=== PATIENT | male | born 1970 | race Two or more races ===

== ENCOUNTER 2020-10-08 16:20 | Outpatient (REF) | payer OTHER, SELFPAY | END 2020-10-08 16:21 | disposition home or self-care (01) | LOC: HO.LAB 16:20 | PROVIDERS: Visit Provider Internal Medicine | DX: Z20.822 Contact with and (suspected) exposure to COVID-19 (principal) | CPT/HCPCS: 36415; C9803; U0003 ==

== ENCOUNTER 2021-04-04 12:45 | Emergency (ER) | payer OTHER, SELFPAY ==
--- NOTE | ~2021-04-04 | CT_ITS ---
EXAMINATION: CT HEAD WITHOUT CONTRAST CLINICAL INFORMATION: Headache, dizziness COMPARISON: None TECHNIQUE: Contiguous axial imaging was performed from the skull base to vertex without intravenous administration of contrast. This CT examination was performed using dose optimization techniques as appropriate, variously including the following: *Automated exposure control *Adjustment of mA and/or kV according to patient size (this includes techniques or standardized protocols for targeted exams where dose is matched to indication/reason for exam; i.e. extremities or head) *Use of iterative reconstruction technique DLP: 843 mGy-cm FINDINGS: There is no evidence of acute intracranial hemorrhage or territorial infarction. No abnormal mass effect or midline shift is seen. Choi to white matter differentiation is well preserved. No extra-axial fluid collections are identified. Small retrocerebellar arachnoid cyst. The ventricles are normal in size. There is no abnormal attenuation within the brain parenchyma. The osseous structures and soft tissues are normal. The mastoid air cells and visualized portions of the paranasal sinuses are well aerated. CT/CT head/brain wo con IMPRESSION: No acute intracranial pathology.
[2021-04-04 13:18] VITALS: BP 108/73; PULSE 52; RESP 18; TEMP 36.4; O2SAT 98; BMI 33.6
[2021-04-04 13:49] LABS: MANUAL DIFF FLAG NO
[2021-04-04 13:53] LABS: Basophils Percent Auto 0.3 % (0-2); Eosinophils Absolute Auto 0.2 X10*3/uL (0.0-0.4); Eosinophils Percent Auto 2.2 % (0-4); Hematocrit 42.2 % (42-52); Hemoglobin 14.5 g/dl (14.0-18.0); Imm Gran Abs Auto 0.04 X10*3/uL (0.00-0.03); Imm Gran Pct Auto 0.4 % (0.0-0.4); Lymphocytes Absolute Auto 1.9 X10*3/uL (1.2-4.9); Lymphocytes Percent Auto 20.3 % (20-40); Mean Corpuscular HGB Conc 34.4 g/dl (31.0-36.0); Mean Corpuscular Hemoglobin 31.5 pg (27.0-33.0); Mean Corpuscular Volume 91.7 fL (80-98); Mean Platelet Volume 8.8 fL (9.4-12.4); Monocytes Absolute Auto 0.4 X10*3/uL (0.1-1.2); Monocytes Percent Auto 4.1 % (2-11); Neutrophils Absolute Auto 6.9 X10*3/uL (2.0-8.3); Neutrophils Percent Auto 72.7 % (45-73); Platelet Count 293 X10*3/uL (160-400); Red Cell Distribution Width 13.8 % (11.0-16.0); White Blood Count 9.5 X10*3/uL (4.8-10.8)
[2021-04-04 14:24] LABS: Anion Gap 11 (12-20); Blood Urea Nitrogen 16 mg/dL (9-16); Calcium 9.3 mg/dL (8.4-10.2); Carbon Dioxide 23 mmol/L (22-29); Chloride 109 mmol/L (96-108); Creatinine Clr Calc Pharmacy 144.1; Estimated Glomerular Filt Rate > 60; Glucose Random 97 mg/dL (60-115); Sodium 139 mmol/L (135-145)
--- NOTE | 2021-04-04 18:14 | ED.DIZZY ---
HPI - Dizziness General Chief Complaint: Dizziness Stated Complaint: dizziness Time Seen by Provider: 04/04/21 18:03 Source: patient Mode of arrival: ambulatory Limitations: no limitations History of Present Illness MD elicited complaint: dizziness and lightheadedness Pertinent past history: inner ear problems Onset (ago): day(s) (last night) Timing: sudden onset and intermittent Severity: severe Description: room spinning Context: change in body position Exacerbating factors: movement/ambulation and change in body position Relieving factors: remaining still Associated symptoms: other (recent L ear infection on cefdinir 300mg BID x 5 days from PCP ) Related Data Previous Rx's Medication Instructions Recorded levofloxacin 500 mg PO DAILY 9 Days #9 tab 04/04/21 meclizine 25 mg PO TID PRN #30 tab 04/04/21 ofloxacin 10 drp OTIC (EARS) DAILY 7 Days #5 04/04/21 ml ondansetron 4 mg PO Q8H PRN #20 tab 04/04/21 Allergies Allergy/AdvReac Type Severity Reaction Status Date / Time oxycodone [From PERCOCET] Allergy Intermediate DIZZINESS Verified 04/04/21 13:18 Review of Systems Review of Systems: Constitutional : No Weight loss, No Fever, No Chills, No Fatigue, No Malaise ENT/Mouth : No sore throat, No Rhinorrhea, pos ear pain Eyes: No Eye Pain, No Swelling, No Redness Cardiovascular : No Chest Pain, No SOB, No Dyspnea on Exertion, No Orthopnea, No Edema, No Palpitations Respiratory : No Cough, No Sputum, No Wheezing Gastrointestinal : pos Nausea, No Vomiting, No Diarrhea, No Constipation, No abdominal Pain, No Hematochezia, No Melena Genitourinary : No Dysuria, No Urinary Frequency, No Hematuria, Musculoskeletal : No joint pain, No Myalgias, No Joint Swelling Skin : No Skin Lesions, No rash Neuro : No Weakness, No Numbness, pos Dizziness, pos Headache Psych : No Anxiety/Panic, No Depression Heme/Lymph: No Bruising, No Bleeding,No Lymphadenopathy Endocrine : No Polyuria, No Polydipsia All other systems reviewed and are negative PMFSH Past Medical History Attestation statement: The following information was validated with the patient. Medical History No active medical problems Social History Social History (Updated 04/04/21 @ 18:18 by Nery Durant DO) Patient Tobacco Use Status: Never used Tobacco Use of substances other than those prescribed or required for medical reasons: No Advance Directives: No Advance Directives Information Provided: Yes Physical Exam Vital Signs: Vital Signs: Last Vital Signs Temp 97.5 F 04/04/21 13:18 Pulse 42 L 04/04/21 19:49 Resp 18 04/04/21 19:49 BP 116/71 04/04/21 19:49 Pulse Ox 98 04/04/21 19:49 Body Mass Index 33.6 Appearance: Alert. Oriented X3. No acute distress. Eyes: Pupils equal, round and reactive to light. ENT: Pharynx normal. R TM bulging and opacified L TM small anterior perforation with purulence noted - no mastoid ttp bilaterally Neck: Normal inspection. Neck supple. CVS: Normal heart rate and rhythm. Pulses normal. Respiratory: No respiratory distress. Breath sounds normal. Abdomen: Soft and nontender. Skin: Skin warm and dry. Normal skin color. Normal skin turgor. Extremities: No lower extremity edema. No calf ttp Neuro: Oriented X 3. No motor deficit. No sensory deficit. Course Course Course Narrative: feels better stable for DC wants to go home MDM - Dizziness MDM Narrative Medical decision making narrative: 51 yo male with recent L AOM on cefdinir 300mg BID for 5 days now for the last day c/o worsening ear pain, ringing in the ears, dizziness - on exam bilateral AOM but L ear has perforation in it no mastoid ttp, at this time will need drops and to switch antibiotics, supportive medications ordered, CT scan for mass/obstructive lesion suspect vertigo from worsening ear infection Lab Data Result diagrams: 04/04/21 13:45 04/04/21 13:45 Labs: Lab Results 04/04/21 04/04/21 Range/Units 13:45 13:45 WBC 9.5 (4.8-10.8) X10*3/uL RBC 4.60 (4.60-5.80) X10*6/uL Hgb 14.5 (14.0-18.0) g/dl Hct 42.2 (42-52) % MCV 91.7 (80-98) fL MCH 31.5 (27.0-33.0) pg MCHC 34.4 (31.0-36.0) g/dl RDW 13.8 (11.0-16.0) % Plt Count 293 (160-400) X10*3/uL MPV 8.8 L (9.4-12.4) fL Immature Gran % (Auto) 0.4 (0.0-0.4) % Neut % (Auto) 72.7 (45-73) % Lymph % (Auto) 20.3 (20-40) % Glascock % (Auto) 4.1 (2-11) % Eos % (Auto) 2.2 (0-4) % Baso % (Auto) 0.3 (0-2) % Lymph # (Auto) 1.9 (1.2-4.9) X10*3/uL Glascock # (Auto) 0.4 (0.1-1.2) X10*3/uL Eos # (Auto) 0.2 (0.0-0.4) X10*3/uL Baso # (Auto) 0.0 (0.0-0.2) X10*3/uL Abs Immat Gran (auto) 0.04 H (0.00-0.03) X10*3/uL Absolute Neuts (auto) 6.9 (2.0-8.3) X10*3/uL Absolute Nucleated RBC 0.000 (0.0-0.012) X10*3/uL Nucleated RBC % (auto) 0.0 (0.0-0.2) /100WBC Sodium 139 (135-145) mmol/L Potassium 4.0 (3.3-5.1) mmol/L Chloride 109 H (96-108) mmol/L Carbon Dioxide 23 (22-29) mmol/L Anion Gap 11 L (12-20) BUN 16 (9-16) mg/dL Creatinine 0.84 (0.5-1.4) mg/dL Estim Creat Clear Calc 144.1 Estimated GFR > 60 Random Glucose 97 (60-115) mg/dL Calcium 9.3 (8.4-10.2) mg/dL Discharge Plan Discharge Clinical Impression: Benign paroxysmal positional vertigo Qualifiers: Laterality: unspecified laterality Qualified Code(s): H81.10 - Benign paroxysmal vertigo, unspecified ear Otitis media Qualifiers: Otitis media type: suppurative Chronicity: acute Laterality: bilateral Recurrence: recurrent Spontaneous tympanic membrane rupture: with spontaneous rupture Qualified Code(s): H66.016 - Acute suppurative otitis media with spontaneous rupture of ear drum, recurrent, bilateral Patient Disposition: Home, Self-Care Instructions: Vertigo (ED), Ear Infection (ED) Additional Instructions: return to ED for any worsening symptoms or concerns stop cedfinir no water in your ears in the next 7 days recheck in 5 days for healing Prescriptions: New meclizine 25 mg tablet 25 mg PO TID PRN (Reason: dizziness) Qty: 30 RF: 0 ondansetron 4 mg tablet,disintegrating 4 mg PO Q8H PRN (Reason: nausea and vomiting) Qty: 20 RF: 0 levofloxacin 500 mg tablet 500 mg PO DAILY 9 Days Qty: 9 RF: 0 ofloxacin 0.3 % drops 10 drp otic (ears) DAILY 7 Days Qty: 5 RF: 0
[2021-04-04] MEDS: Meclizine HCl 25 MG TABLET PO (18:17)
[2021-04-04] MEDS: levoFLOXacin 500 MG TABLET PO (18:17)
[2021-04-04] MEDS: ondansetron HCL 4 MG/2 ML VIAL IVPUSH (18:18)
[2021-04-04] MEDS: 0.9 % Sodium Chloride 1,000 ML 999 ML IVCONT (18:19)
[2021-04-04 18:21] VITALS: BP 137/80; PULSE 50; RESP 16; O2SAT 100
[2021-04-04 19:49] VITALS: BP 116/71; PULSE 42; RESP 18; O2SAT 98
== END 2021-04-04 20:21 | disposition home or self-care (01) ==
LOC: HO.ED 18:23
PROVIDERS: Emergency Provider Emergency Medicine; PCP Internal Medicine
DX: H81.10 Benign paroxysmal vertigo, unspecified ear (principal); H66.016 Acute suppurative otitis media with spontaneous rupture of ear drum, recurrent, bilateral
CPT/HCPCS: 36415; 70450; 80048; 85025; 96361; 96374; 99284; J2405

== ENCOUNTER 2021-06-19 10:32 | Outpatient (REF) | payer OTHER, SELFPAY | END 2021-06-19 10:33 | disposition home or self-care (01) | LOC: HO.LAB 10:32 | PROVIDERS: PCP Internal Medicine Endocrinology, Diabetes & Metabolism; Visit Provider Internal Medicine | DX: Z20.822 Contact with and (suspected) exposure to COVID-19 (principal) | CPT/HCPCS: C9803; U0003; U0005 ==

== ENCOUNTER 2021-06-24 15:34 | Outpatient (REF) | payer OTHER, SELFPAY | END 2021-06-24 15:35 | disposition home or self-care (01) | LOC: HO.LAB 15:34 | PROVIDERS: Visit Provider Internal Medicine | DX: Z20.822 Contact with and (suspected) exposure to COVID-19 (principal) | CPT/HCPCS: C9803; U0003; U0005 ==

== ENCOUNTER 2022-04-15 09:41 | Emergency (ER) | payer OTHER, SELFPAY ==
[2022-04-15 11:05] VITALS: BP 136/84; PULSE 79; RESP 18; TEMP 36.2; O2SAT 100; BMI 34.2
[2022-04-15 13:46] VITALS: BP 137/86; PULSE 74; RESP 18; O2SAT 100
--- NOTE | 2022-04-15 13:56 | ED_ITS ---
HPI - Back Pain/Injury General Chief Complaint: Back Pain/Injury Stated Complaint: Back pain/HBP Time Seen by Provider: 04/15/22 12:54 Source: patient Mode of arrival: ambulatory History of Present Illness HPI Narrative: 52-year-old male with past medical history of COVID-19, chronic back pain, presenting to the ED complaining of lower back spasms x6 days. Reports bilateral low back pain radiating down bilateral lower extremities with intermittent numbness. Reports pain with movement and ambulation. Has been taking Flexeril at home without relief. Denies direct trauma, injury, fall, weakness, urinary incontinence/retention, hematuria. Admits to similar symptoms in the past. MD elicited complaint: back pain Onset (ago): day(s) Related Data Previous Rx's Medication Instructions Recorded levofloxacin 500 mg tablet 500 mg PO DAILY 9 days #9 tabs 04/04/21 meclizine 25 mg tablet 25 mg PO TID PRN dizziness #30 tabs 04/04/21 ofloxacin 0.3 % ear drops 10 drp otic (ears) DAILY 7 days #5 04/04/21 mL ondansetron 4 mg disintegrating 4 mg PO Q8H PRN nausea and 04/04/21 tablet vomiting #20 tabs acetaminophen 500 mg tablet 500 mg PO Q6H PRN fever or pain 04/15/22 (Tylenol Extra Strength) #14 tabs cyclobenzaprine 10 mg tablet 10 mg PO TID PRN muscle spasm #14 04/15/22 tabs lidocaine 5 % topical patch 1 patch topical DAILY PRN pain #30 04/15/22 (Lidoderm) ea naproxen 500 mg tablet 500 mg PO BID PRN pain 10 days #20 04/15/22 tabs tramadol 50 mg tablet 50 mg PO Q8H PRN pain, severe #9 04/15/22 tabs Allergies Allergy/AdvReac Type Severity Reaction Status Date / Time oxycodone [From PERCOCET] Allergy Intermediate DIZZINESS Verified 04/15/22 11:05 Review of Systems Review of Systems: Constitutional: No Fever, No Chills ENT/Mouth: No Ear Pain, No Nasal Congestion, No sore throat, No Rhinorrhea, No Swallowing Difficulty Cardiovascular: No Chest Pain, No SOB Respiratory: No Cough, No Sputum Gastrointestinal: No Nausea, No Vomiting, No Diarrhea, No Constipation, No Abdominal pain Genitourinary: No Dysuria, No Urinary Frequency, No Hematuria, No Urinary Incontinence/retention Musculoskeletal: + joint pain, No Myalgias, No Joint Swelling Skin: No Skin Lesions, No rash Neuro: No Weakness, No Numbness, No Paresthesias Yes all other systems are reviewed and are negative Neurologic: Denies Sensory deficit (Neuro) [facility] Past Medical History Attestation statement: The following information was validated with the patient. Medical History No active medical problems Social History Social History Patient Tobacco Use Status: Never used Tobacco Advance Directives: No Advance Directives Information Provided: Yes Physical Exam Vital Signs: Vital Signs: Last Vital Signs Temp 97.2 F 04/15/22 11:05 Pulse 74 04/15/22 13:46 Resp 18 04/15/22 13:46 BP 137/86 04/15/22 13:46 Pulse Ox 100 04/15/22 13:46 O2 Del Method 04/15/22 13:46 BMI result Body Mass Index 34.2 Const: General: cooperative, healthy appearing and no acute distress Orientation/consciousness: patient oriented x3 Limitations: no limitations HEENT: Head: Yes normal to inspection and Yes atraumatic Ears: hearing grossly normal bilaterally General nose exam: Normal external nose present Face and sinus: Yes normal facial exam Eyes: General: appearance normal, both eyes and all related structures EOM: EOMs intact bilaterally Neck: Neck: Yes normal visual inspection and Yes no meningeal signs Resp: Effort & Inspection: normal respiratory effort and no respiratory distress Auscultation: clear to auscultation bilaterally Cardio: Rate: regular rate Heart sounds: S1 normal heart sound present and S2 normal heart sound present GI: Inspection: Yes normal to inspection Palpation (GI): Soft to palpation, nontender, no guarding and not rigid : General: Yes no CVA tenderness Back/Spine/Pelvis: Other: No midline thoracic/lumbar spinous tenderness/step-off or deformity. + bilateral lower lumbar MSK tenderness to palpation/palpable muscle spasming Back: no CVA tenderness Skin: Rashes: no rashes Wounds: no wounds Neuro: Other: Strength intact throughout. No saddle anesthesia. Sensation intact to light touch. Neurovascular intact distally. Ambulating with slow steady gait General: patient oriented x3, tone normal, moves all extremities and no meningeal signs Gait exam (Neuro): Normal gait present Motor exam (neuro): 5/5 motor strength present throughout Sensory Exam: No Sensory deficit (Neuro) Extrem: General: Yes normal to inspection MDM - Back Pain/Injury MDM Narrative Medical decision making narrative: 52-year-old male with past medical history of COVID-19, chronic back pain, presenting to the ED complaining of lower back spasms x6 days. On exam vital signs stable, NAD, nontoxic appearing, no midline spinous tenderness throughout, no red flag symptoms. Ambulating with slow steady gait. Concern for MSK pain/spasming vs sciatica. Lower suspicion for pyelo/renal stone or cauda equina Plan: Pain control, PCP f/u Differential Diagnosis Differential diagnosis: Likely lumbar radiculopathy, sciatica and strain of lumbar region Medical Records Attestation: I reviewed the patient's medical records. Lab Data Attestation: I reviewed the patient's lab results. Discharge Plan Discharge Clinical Impression: Strain of lumbar region, Lumbar radiculopathy Patient Disposition: Home, Self-Care Instructions: Lumbar Radiculopathy (ED) Additional Instructions: Your pain is likely musculoskeletal Flexeril is a muscle relaxer, take at night as it makes you drowsy, do not drive, drink alcohol, or operate machinery while taking it Naproxen as an anti-inflammatory / pain medication, take with food Lidoderm patches are numbing patches, apply to painful area Tramadol is an opiate pain medication, take only when pain is severe for the next [address], drink alcohol, or operate machinery while taking If symptoms persist or worsen, pain becomes unbearable, you developed urinary retention or incontinence, or weakness return to the ED Prescriptions: New tramadol 50 mg tablet 50 mg PO Q8H PRN (Reason: pain, severe) Qty: 9 0RF acetaminophen [Tylenol Extra Strength] 500 mg tablet 500 mg PO Q6H PRN (Reason: fever or pain) Qty: 14 0RF lidocaine [Lidoderm] 5 % adhesive patch,medicated 1 patch topical DAILY MDD remove after 12 hours PRN (Reason: pain) Qty: 30 0RF Rx Instructions: leave on most painful area for up to 12 hrs naproxen 500 mg tablet 500 mg PO BID PRN (Reason: pain) 10 Days Qty: 20 0RF cyclobenzaprine 10 mg tablet 10 mg PO TID PRN (Reason: muscle spasm) Qty: 14 0RF No Action meclizine 25 mg tablet 25 mg PO TID PRN (Reason: dizziness) Qty: 30 0RF ondansetron 4 mg tablet,disintegrating 4 mg PO Q8H PRN (Reason: nausea and vomiting) Qty: 20 0RF levofloxacin 500 mg tablet 500 mg PO DAILY 9 Days Qty: 9 0RF ofloxacin 0.3 % drops 10 drp otic (ears) DAILY 7 Days Qty: 5 0RF Rx Instructions: L ear Referrals: Kris Garcia MD [Primary Care Provider] - Stand Alone Forms: Work/School Release
[2022-04-15] MEDS: Ketorolac Tromethamine 30 MG/ML VIAL IM (14:15)
[2022-04-15] MEDS: Lidocaine 4 % Patch ADH..PATCH 1 PATCH TRANSDERMA (14:16)
[2022-04-15] MEDS: traMADoL HCL 50 MG TABLET PO (14:17)
[2022-04-15] MEDS: Cyclobenzaprine HCl 10 MG TABLET PO (14:17)
== END 2022-04-15 14:32 | disposition home or self-care (01) ==
PROVIDERS: Emergency Provider Emergency Medicine Emergency Medical Services; PCP Internal Medicine Endocrinology, Diabetes & Metabolism
DX: M54.16 Radiculopathy, lumbar region (principal); S39.012A Strain of muscle, fascia and tendon of lower back, initial encounter; X58.XXXA Exposure to other specified factors, initial encounter; Y93.9 Activity, unspecified; Y92.9 Unspecified place or not applicable; Y99.9 Unspecified external cause status
CPT/HCPCS: 96372; 99283; 99284; J1885

== ENCOUNTER 2022-12-03 15:43 | Emergency (ER) | payer OTHER, SELFPAY ==
[2022-12-03 16:50] VITALS: BP 132/99; PULSE 77; RESP 20; TEMP 36.6; O2SAT 98; BMI 34.0
--- NOTE | 2022-12-03 17:01 | ED_ITS ---
HPI - General Adult General Chief complaint: Back Pain/Injury Stated complaint: Back pain Time Seen by Provider: 12/03/22 17:00 Source: patient Mode of arrival: wheelchair Limitations: no limitations History of Present Illness HPI narrative: Patient is a 52 year old assigned male at with a history of back pain presenting to the emergency department today with a new flare of his back pain. Patient states that he has chronic issues with his back and every now and then has an episode like this one. Patient denies any dizziness, lightheadedness, abdominal pain, nausea, vomiting, fever, chills, blurry vision, double vision, loss of vision, chest pain, difficulty breathing, shortness of breath, night sweats, pain with urination, increased urinary frequency, increased urinary urgency, blood in his urine or stool, syncope or a near syncopal episode, recent trauma or falls, bowel incontinence, bladder incontinence, bowel retention, bladder retention, or any other complaints at this time. Onset (ago): day(s) (2) Location: back Severity: mild Severity scale (1-10): 3 Pain Consistency: constant Relieving factors: none Exacerbating factors: none Associated symptoms: denies other symptoms Treatments prior to arrival: none Related Data Previous Rx's Medication Instructions Recorded levofloxacin 500 mg tablet 500 mg PO DAILY 9 days #9 tabs 04/04/21 meclizine 25 mg tablet 25 mg PO TID PRN dizziness #30 tabs 04/04/21 ofloxacin 0.3 % ear drops 10 drp otic (ears) DAILY 7 days #5 04/04/21 mL ondansetron 4 mg disintegrating 4 mg PO Q8H PRN nausea and 04/04/21 tablet vomiting #20 tabs acetaminophen 500 mg tablet 500 mg PO Q6H PRN fever or pain 04/15/22 (Tylenol Extra Strength) #14 tabs cyclobenzaprine 10 mg tablet 10 mg PO TID PRN muscle spasm #14 04/15/22 tabs lidocaine 5 % topical patch 1 patch topical DAILY PRN pain #30 04/15/22 (Lidoderm) ea naproxen 500 mg tablet 500 mg PO BID PRN pain 10 days #20 04/15/22 tabs tramadol 50 mg tablet 50 mg PO Q8H PRN pain, severe #9 04/15/22 tabs prednisone 20 mg tablet 20 mg PO DAILY 7 days #7 tabs 12/03/22 tramadol 50 mg tablet 50 mg PO Q8H PRN pain #7 tabs 12/03/22 Allergies Allergy/AdvReac Type Severity Reaction Status Date / Time oxycodone [From PERCOCET] Allergy Intermediate DIZZINESS Verified 04/15/22 11:05 Review of Systems Constitutional: Constitutional: Reports no additional constitutional co mplaints, Denies chills, Denies fever(s) and Denies night sweats Eyes: Eyes: Reports no additional eye complaints, Denies blurry vision, Denies change in vision, Denies diplopia, Denies eye discharge, Denies loss of vision and Denies eye pain ENT: Denies dizziness Cardiovascular: Cardiovascular: Reports no additional cardiovascular complaints, Denies chest pain, Denies lightheadedness, Denies Loss of Consciousness and Denies dyspnea Respiratory: Respiratory: Reports no additional respiratory complaints and Denies dyspnea Gastrointestinal: Gastrointestinal: Reports no additional gastrointestinal complaints, Denies abdominal pain, Denies melena, Denies hematochezia, Denies change in bowel habits and Denies change in stool character Genitourinary: Genitourinary: Reports no additional male genitourinary complaints, Denies hematuria, Denies oliguria, Denies difficulty urinating, Denies dysuria, Denies urinary frequency, Denies urinary hesitancy, Denies urinary incontinence and Denies urinary urgency Musculoskeletal: Musculoskeletal: Reports no additional musculoskeletal complaints, Reports back pain, Denies numbness and Denies tingling Neurologic: Denies dizziness, Denies loss of vision, Denies numbness and Denies tingling Psychiatric: Psychiatric: Reports no additional psychiatric complaints Endocrine: Endocrine: Reports no additional endocrine complaints Hematologic/Lymphatic: Hematologic/Lymphatic: Reports no additional hematologic/lymphatic complaints Allergic/Immunologic: Allergic/Immunologic: Reports no additional allergic/immunologic complaints PMFSH Past Medical History Attestation statement: The following information was validated with the patient. Source: old records reviewed and nursing notes reviewed Medical History No active medical problems Social History Social History Patient Tobacco Use Status: Never used Tobacco Advance Directives: No Advance Directives Information Provided: No Physical Exam ED Vital Signs: Vital Signs - 24 hr 12/03/22 16:50 Temperature 98 F Pulse Rate 77 Respiratory Rate 20 Blood Pressure 132/99 H Pulse Oximetry 98 Oxygen Delivery Method Room Air BMI result Body Mass Index 34.0 Const General: cooperative, no acute distress, alert and awake Nutritional Appearance: well nourished Orientation/consciousness: patient oriented x3 Limitations: no limitations HENMT Head: Yes normal to inspection and Yes atraumatic Ears: hearing grossly normal bilaterally and external ears normal General nose exam: Normal external nose present, no nasal discharge noted and no epistaxis Face and sinus: Yes normal facial exam, No abrasion and No laceration Mouth: Normal oral and palatal mucosa present, no drooling and no muffled voice Eyes General: appearance normal, both eyes and all related structures Periorbital: periorbital findings normal Eyelids: Yes eyelids normal Conjunctivae: conjunctivae normal Pupils: Equal, round and reactive pupils present EOM: EOMs intact bilaterally Neck Neck: Yes normal visual inspection, Yes full ROM and Yes no lymphadenopathy Chest Chest palpation & inspection: normal inspection of the chest Resp Effort & Inspection: normal respiratory effort and able to speak in complete sentences Auscultation: clear to auscultation bilaterally Cardio Rate: regular rate Rhythm: regular rhythm GI Inspection: Yes normal to inspection Palpation (GI): Soft to palpation, not firm, nontender, no guarding and not rigid General: Yes no CVA tenderness Back/Spine/Pelvis Back: no CVA tenderness Cervical Spine: normal cervical lordosis and cervical ROM normal Thoracic/Lumbar Spine: thoracic and lumbar spine normal to inspection and t horaco-lumbar ROM normal Neuro General: patient oriented x3 and moves all extremities Cranial nerves: Yes Equal, round and reactive pupils present Cognition (Neuro): normal cognition Motor exam (neuro): 5/5 motor strength present throughout Sensory Exam: Normal double simultaneous stimulation for sensation Coordination: [id number] test normal Extrem General: Yes normal to inspection, Yes full ROM and Yes capillary refill normal Psych Appearance: grossly normal Mental Status: mental status grossly normal Affect: normal affect Attitude: cooperative Thought process: Normal thought process present Thought content: Normal thought content present Insight: Good insight present (Psych) Medical Decision Making Medical Decision Making MDM Narrative: Patient is a 52 year old assigned male at with a history of back pain presenting to the emergency department today with low back pain. Patient's physical exam was unremarkable. I explained my physical exam findings to the patient. I answered all questions asked by the patient. Patient received IM Solu-medrol and IM Toradol which he stated helped his pain significantly. I stressed the importance of the patient taking his medication as prescribed. I stressed the importance of the patient following up with his primary care provider and a embroidery specialist. I stressed the importance of the patient returning to the emergency department immediately if his symptoms were to worsen or if he were to develop any dizziness, shortness of breath, difficulty breathing, chest pain, blurry vision, loss of vision, nausea, vomiting, abdominal pain, fever, chills, back pain, or any other complaints. Patient verbalized agreement and understanding with this treatment plan and discharge. Differential Diagnosis Differential Diagnoses: The differential diagnosis associated with the presentat ion includes low back pain Discharge Plan Discharge Clinical Impression: Lumbar back pain Patient Disposition: Home, Self-Care Instructions: Back Pain (ED) Additional Instructions: Follow up with your primary care provider and a embroidery specialist. Return to the emergency department immediately if your symptoms worsen or if you develop any dizziness, shortness of breath, difficulty breathing, chest pain, blurry vision, loss of vision, nausea, vomiting, abdominal pain, fever, chills, back pain, or any other complaints. Prescriptions: New prednisone 20 mg tablet 20 mg PO DAILY 7 Days Qty: 7 0RF tramadol 50 mg tablet 50 mg PO Q8H PRN (Reason: pain) Qty: 7 0RF No Action meclizine 25 mg tablet 25 mg PO TID PRN (Reason: dizziness) Qty: 30 0RF ondansetron 4 mg tablet,disintegrating 4 mg PO Q8H PRN (Reason: nausea and vomiting) Qty: 20 0RF levofloxacin 500 mg tablet 500 mg PO DAILY 9 Days Qty: 9 0RF ofloxacin 0.3 % drops 10 drp otic (ears) DAILY 7 Days Qty: 5 0RF Rx Instructions: L ear tramadol 50 mg tablet 50 mg PO Q8H PRN (Reason: pain, severe) Qty: 9 0RF acetaminophen [Tylenol Extra Strength] 500 mg tablet 500 mg PO Q6H PRN (Reason: fever or pain) Qty: 14 0RF lidocaine [Lidoderm] 5 % adhesive patch,medicated 1 patch topical DAILY MDD remove after 12 hours PRN (Reason: pain) Qty: 30 0RF Rx Instructions: leave on most painful area for up to 12 hrs naproxen 500 mg tablet 500 mg PO BID PRN (Reason: pain) 10 Days Qty: 20 0RF cyclobenzaprine 10 mg tablet 10 mg PO TID PRN (Reason: muscle spasm) Qty: 14 0RF Referrals: [facility] [place] Family Medicine [Provider Group] (Call to establish and follow up with a primary care provider. If you already have a primary care provider, please follow up with them.) [facility] [place] Primary Care, [facility] [Provider Group] (Call to establish and follow up with a primary care provider. If you already have a primary care provider, please follow up with them.) [facility] [place] Primary Care[facility] [Provider Group] (Call to establish and follow up with a primary care provider. If you already have a primary care provider, please follow up with them.) [facility] [Provider Group] (Call to establish and follow up with a embroidery specialist. ) Stand Alone Forms: Work/School Release Print Language: Sinhala
[2022-12-03] MEDS: methylPREDNISolone Sod Succ 125 MG/2 ML VIAL 60 MG IM (17:34)
[2022-12-03] MEDS: Ketorolac Tromethamine 15 MG/ML VIAL IM (17:34)
== END 2022-12-03 17:58 | disposition home or self-care (01) ==
PROVIDERS: Emergency Provider Internal Medicine; PCP Internal Medicine Endocrinology, Diabetes & Metabolism
DX: M54.50 Low back pain, unspecified (principal); Z79.899 Other long term (current) drug therapy
CPT/HCPCS: 96372; 99283; 99284; J1885; J2930

== ENCOUNTER 2023-06-05 14:15 | Emergency (ER) | payer OTHER, SELFPAY ==
[2023-06-05 14:19] VITALS: BP 145/86; PULSE 94; RESP 18; TEMP 36.7; O2SAT 98; BMI 34.8
--- NOTE | 2023-06-05 14:23 | ED.GENADULT ---
HPI - General Adult General Chief complaint: General Medical Stated complaint: L Ear Pain Time Seen by Provider: 06/05/23 18:20 Source: patient, family () and RN notes reviewed Limitations: no limitations History of Present Illness HPI narrative: 53-year-old male presents for evaluation of left ear pain. Patient reports he started to notice the pain 3 days ago He denies sticking anything in the ear Denies any drainage from the ear Denies any fevers or chills He reports a history of similar pain approximately 2 years ago which eventually led to vertigo due to an ear infection He denies any vertigo symptoms today Currently his pain is an 04/23 Related Data Previous Rx's Medication Instructions Recorded levofloxacin 500 mg tablet 500 mg PO DAILY 9 days #9 tabs 04/04/21 meclizine 25 mg tablet 25 mg PO TID PRN dizziness #30 tabs 04/04/21 ofloxacin 0.3 % ear drops 10 drp otic (ears) DAILY 7 days #5 04/04/21 mL ondansetron 4 mg disintegrating 4 mg PO Q8H PRN nausea and 04/04/21 tablet vomiting #20 tabs acetaminophen 500 mg tablet 500 mg PO Q6H PRN fever or pain 04/15/22 (Tylenol Extra Strength) #14 tabs cyclobenzaprine 10 mg tablet 10 mg PO TID PRN muscle spasm #14 04/15/22 tabs lidocaine 5 % topical patch 1 patch topical DAILY PRN pain #30 04/15/22 (Lidoderm) ea naproxen 500 mg tablet 500 mg PO BID PRN pain 10 days #20 04/15/22 tabs tramadol 50 mg tablet 50 mg PO Q8H PRN pain, severe #9 04/15/22 tabs prednisone 20 mg tablet 20 mg PO DAILY 7 days #7 tabs 12/03/22 tramadol 50 mg tablet 50 mg PO Q8H PRN pain #7 tabs 12/03/22 ofloxacin 0.3 % ear drops 10 drp otic (ear) left DAILY 7 06/05/23 days #5 mL Allergies Allergy/AdvReac Type Severity Reaction Status Date / Time oxycodone [From PERCOCET] Allergy Intermediate DIZZINESS Verified 04/15/22 11:05 Review of Systems Constitutional: Constitutional: Denies chills and Denies fever(s) Eyes: Eyes: Denies blurry vision ENT: Denies ear discharge and Reports otalgia Cardiovascular: Cardiovascular: Denies chest pain and Denies dyspnea Respiratory: Respiratory: Denies dyspnea Gastrointestinal: Gastrointestinal: Denies abdominal pain, Denies nausea and Denies vomiting Musculoskeletal: Musculoskeletal: Denies back pain Integumentary/Breasts: Skin/Breast: Denies erythema PMFSH Past Medical History Medical History No active medical problems Social History Social History Patient Tobacco Use Status: Never used Tobacco Physical Exam ED Vital Signs: Vital Signs - 24 hr 06/05/23 14:19 Temperature 98.1 F Pulse Rate 94 Respiratory Rate 18 Blood Pressure 145/86 H Pulse Oximetry 98 Oxygen Delivery Method Room Air BMI result Body Mass Index 34.8 Const General: healthy appearing, comfortable, no acute distress, alert and awake Nutritional Appearance: well nourished Orientation/consciousness: patient oriented x3 HENMT Other: Left external ear canal edematous with erythema and flaking. No otorrhea. No mastoid tenderness. There is significant tenderness open ablation of the tragus on the left. Head: Yes normocephalic and Yes atraumatic Ears: TM's normal bilaterally and EAC's not normal Eyes Eyelids: Yes eyelids normal Conjunctivae: conjunctivae normal Sclerae: sclerae normal Corneas: corneas normal Pupils: Equal, round and reactive pupils present EOM: EOMs intact bilaterally Neck Neck: Yes full ROM Resp Effort & Inspection: normal respiratory effort, able to speak in complete sentences and not labored Skin General skin exam: elasticity normal Neuro General: patient oriented x3 Cranial nerves: Yes Equal, round and reactive pupils present and Yes Bilaterally intact EOM present Cognition (Neuro): normal cognition Extrem Other: Moving all extremities well without any obvious deformities Course Course Course Narrative: This is an RME: Additional HPI, ROS, PE not included below will be deferred to primary provider. 53 yo M presents w. L ear pain X 3 days w/ peeling of ears and severe pain w/ radiation into head. [facility] [place] Medical Decision Making Medical Decision Making MDM Narrative: 53-year-old male presents for evaluation of left ear pain. Physical exam is consistent with acute left otitis externa. Will treat with ofloxacin drops. There is no evidence of mastoiditis. Tympanic membrane appears unremarkable Differential Diagnosis Differential Diagnoses: The differential diagnosis associated with the presentation includes Acute otitis externa Otitis media Mastoiditis Foreign body Cerumen impaction Tympanic membrane perforation Discharge Plan Discharge Clinical Impression: Otitis externa Qualifiers: Chronicity: acute Laterality: left Patient Disposition: Home, Self-Care Instructions: Otitis Externa (ED) Additional Instructions: You appear to have an outer ear infection of the left ear. Apply 10 drops to the left ear daily for 7 days After you apply the drops, you should lie on your right side with your left ear pointing up for least 10 minutes Use Motrin and/or Tylenol for pain Prescriptions: New ofloxacin 0.3 % drops 10 drp otic (ear) left DAILY 7 Days Qty: 5 0RF No Action meclizine 25 mg tablet 25 mg PO TID PRN (Reason: dizziness) Qty: 30 0RF ondansetron 4 mg tablet,disintegrating 4 mg PO Q8H PRN (Reason: nausea and vomiting) Qty: 20 0RF levofloxacin 500 mg tablet 500 mg PO DAILY 9 Days Qty: 9 0RF ofloxacin 0.3 % drops 10 drp otic (ears) DAILY 7 Days Qty: 5 0RF Rx Instructions: L ear tramadol 50 mg tablet 50 mg PO Q8H PRN (Reason: pain, severe) Qty: 9 0RF acetaminophen [Tylenol Extra Strength] 500 mg tablet 500 mg PO Q6H PRN (Reason: fever or pain) Qty: 14 0RF lidocaine [Lidoderm] 5 % adhesive patch,medicated 1 patch topical DAILY MDD remove after 12 hours PRN (Reason: pain) Qty: 30 0RF Rx Instructions: leave on most painful area for up to 12 hrs naproxen 500 mg tablet 500 mg PO BID PRN (Reason: pain) 10 Days Qty: 20 0RF cyclobenzaprine 10 mg tablet 10 mg PO TID PRN (Reason: muscle spasm) Qty: 14 0RF prednisone 20 mg tablet 20 mg PO DAILY 7 Days Qty: 7 0RF tramadol 50 mg tablet 50 mg PO Q8H PRN (Reason: pain) Qty: 7 0RF
== END 2023-06-05 18:43 | disposition home or self-care (01) ==
PROVIDERS: Emergency Provider Emergency Medicine; PCP Internal Medicine Endocrinology, Diabetes & Metabolism
DX: H60.92 Unspecified otitis externa, left ear (principal); H92.02 Otalgia, left ear; Z79.899 Other long term (current) drug therapy
CPT/HCPCS: 99282; 99283

== ENCOUNTER 2024-01-06 10:10 | Outpatient (AMB) | payer OTHER, SELFPAY ==
--- NOTE | 2024-01-06 10:16 | MHC.PC.OV ---
Vital Signs 01/06/24 10:27 Height 6 ft 2 in Weight 284 lb BMI 36.5 BP 126/78 Blood Pressure Location Lt brachial Position Sitting Pulse 79 Pulse Source Pulse Oximeter Pulse Oximetry (%) 97 Oxygen Delivery Method Room Air Intake Visit Reasons: Establish care Pearl Restorer Required: No Raker Buffing Wheel: Present Accompanied by: Significant Other Allergies oxycodone [From PERCOCET] Allergy (Intermediate, Verified 01/06/24 10:30) DIZZINESS Medication List - Last Reconciled 01/06/24 by SY Alba- acetaminophen (Tylenol Extra Strength) 500 mg PO Q6H PRN cyclobenzaprine 10 mg PO TID PRN Tobacco use date assessed: 01/06/24 Dental Screening Dental Screen Date: 01/06/24 Did you have a dental visit in the last 12 months?: Yes Did you have a dental problem in the last 6 months where you did not have access to dental care?: No Was dental information given to patient?: Patient has dentist HPI HPI Comments History of Present Illness Details 53-year-old male BPPV, obesity, former tobacco use, current marijuana user, varicose veins, PVD, prediabetes Health Maintenance: Colon Specialists: Podiatry Here today as a new patient for a pre-op exam Limited medical records available to me today; including the pre-op check list Surgery Type: L foot surgery Anesthesia Type: General Surgeon: Dr Celis Date: February 24, 2024 Any past surgical procedures: none Any complications from anesthesia or in post-op period: has never had surgery ASA or NSAID Use: Ibuprofen, however says she discontinued this and he is only taking APAP Current smoker: Quit 08/2023 Alcohol use: Drinks beer 12 pack per week Drug use: smokes marijuana daily METs: > 4 climb flight of stairs, golf, walk, yardwork Medical history: Asthma reports childhood asthma, no adult treatment, not on medication COPD denies Obesity BMI 36.5 Diabetes denies He has not had a Tdap in the last 10 years. Will give today. RCRI is Class 1. Risk Stratification: 3.9?%, Low risk PFSH Medical History No active medical problems Social History Housing: House Patient Tobacco Use Status: Former Tobacco user Quit Date: 08/2023 Tobacco use type: Cigarette Cigarette Packs Per Day: 1 e-Cigarette/Vaping Use: Never Used Second Hand Smoke Exposure: No service: No Current occupational status: employed Current occupational exposures/hazards: No Cognitive needs: No Hearing needs: No Vision needs: No Questionnaire PHQ-9 Over the last 2 weeks, how often have you been bothered by any of the following problems? 1. Little interest or pleasure in doing things: not at all 2. Feeling down, depressed, or hopeless: not at all 3. Trouble falling or staying asleep, or sleeping too much: not at all 4. Feeling tired or having little energy: nearly every day 5. Poor appetite or overeating: not at all 6. Feeling bad about yourself - or that you are a failure or have let yourself or your family down: not at all 7. Trouble concentrating on things, such as reading the newspaper or watching television: not at all 8. Moving or speaking so slowly that other people could have noticed. Or the opposite - being so fidgety or restless that you have been moving around a lot more than usual: not at all 9. Thoughts that you would be better off or of hurting yourself in some way: not at all Total score: 3 Depression Screening Interpretation: Negative Depression Screening Done: Yes 20598 - PHQ-9 Billing: Yes Source: Developed by Drs. Clifton Nguyễn, Kalli Juarez, Cecilio Hernandes and colleagues, with an educational ganesh from [employer]. Thrive Questionnaire Date Thrive assessed: 01/06/24 I am a: Patient What is your living situation today?: I have a steady place to live Within the past 12 months, did the food you bought not last and you didn't have the money to get more?: Never true Within the past 12 months, did you worry whether your food would run out before you got money to buy more?: Never true Do you have trouble paying for medicines?: No Do you have trouble getting transportation to medical appointments?: No Do you have trouble paying your heating and electricity bill?: No Do you have trouble taking care of your child, family member or friend?: No Do you have trouble with day-to-day activities such as bathing, preparing meals, shopping, managing finances, etc.?: No Are you currently unemployed and looking for a job?: No Are you interested in more education?: No Please select the resources that you would like help with: None Currently or been in a relationship where the following occur: no concerns reported THRIVE Score: 0 AUDIT C Alcohol Use Questionnaire (AUDIT-C) 1. How often do you have a drink containing alcohol?: 4 or more times a week 2. How many drinks containing alcohol do you have on a typical day when you are drinking?: 10 or more 3. How often do you have six or more drinks on one occasion?: Never Total Score: 8 Score Reviewed/Action Taken: Yes ALISON-7 AMB Questionnaire ALISON-7 Date ALISON - 7 assessed: 01/06/24 Feeling nervous, anxious, or on edge: 0 = Not at all Not being able to stop or control worryin = Not at all Worrying too much about different things: 0 = Not at all Trouble relaxin = Not at all Being so restless that it is hard to sit still: 0 = Not at all Becoming easily annoyed or irritable: 0 = Not at all Feeling afraid as if something awful might happen: 0 = Not at all Total ALISON-7 score (0-4 normal; 5-9 mild; 10-14 moderate; 15-21 severe): 0 Source: Developed by Drs. Clifton Nguyễn, Kalli Juarez, Cecilio Hernandes and colleagues, with an educational ganesh from [employer]. ALISON-7 Assessment Billing ALISON-7 Assessment Tool: ALISON-7 Assessment 00736 Review of Systems Const All systems reviewed & are unremarkable except as noted in HPI and below Physical exam (Primary Care) Vital Signs: Last Vital Signs Pulse 79 01/06/24 10:27 BP 126/78 01/06/24 10:27 Pulse Ox 97 01/06/24 10:27 Oxygen Delivery Method Room Air 01/06/24 10:27 BMI result Body Mass Index 36.5 BMI Assessment/Plan discussion: High BMI High, discussed plan: lifestyle Tobacco/Smoking Status: Tobacco use Status Tobacco use date assessed 01/06/24 01/06/24 10:55 Patient Tobacco Use Status Former Tobacco user 01/06/24 10:55 Tobacco use type Cigarette 01/06/24 10:55 e-Cigarette/Vaping Use Never Used 01/06/24 10:55 PHQ-9: PHQ-9 Score PHQ-9: Total score 3 01/06/24 13:03 Depression Screening Interpretation: Negative Thrive Assessment: Date of Thrive Assessment Date Thrive assessed 01/06/24 01/06/24 10:55 Currently or been in a relationship where the following occur: no concerns reported Const Other: awake alert accompanied by scleras nonicteric MMM RRR LS CTAB BLE + varicosities Immunizations Boostrix Tdap 2.5 Lf unit-8 mcg-5 Lf/0.5 mL intramuscular syringe Performing Provider: KELLE Alba Performing Location: [facility] Administered by: Marely Aguiar CMA on 01/06/24 11:48 Dose Route Admin Location Dispensed Lot Number Expiration Date NDC Registered Nurse Practitioner 0.5 mL IM Left Deltoid 0.5 mL [id number] 01/16/26 [id number] [employer] VIS Given Date VIS Provided VIS Publication Date 01/06/24 Single Vaccine 21 Eligibility Eligibility Date Funding Source Not VFC Eligible 01/06/24 Private Assessment and Plan Assessment & Plan (1) Pre-operative clearance: Comment: Will order labs and EKG I do not have paperwork from Dr Celis I have asked my staff to get this for me to review I will update the pre-op clearance after lab, ekg and paperwork review. Code(s): Z01.818 - Encounter for other preprocedural examination (2) Former cigarette smoker: Comment: Quit 08/2023. Pt states needs a test to prove he quit. Lab order placed. Code(s): Z87.891 - Personal history of nicotine dependence (3) Marijuana user: Comment: encouraged to stop immediately as this will increase his surgical risks. Code(s): F12.90 - Cannabis use, unspecified, uncomplicated (4) Prediabetes: Comment: 01/06/2024 HgA1c 6.0% Code(s): R73.03 - Prediabetes (5) Class 2 obesity with body mass index (BMI) of 36.0 to 36.9 in adult: Comment: BMI >36 encouraged lifestyle mods Code(s): E66.9 - Obesity, unspecified; Z68.36 - Body mass index [BMI] 36.0-36.9, adult Qualifiers: Obesity type: due to excess calories Serious obesity comorbidity presence: without serious comorbidity Qualified Code(s): E66.09 - Other obesity due to excess calories; Z68.36 - Body mass index [BMI] 36.0-36.9, adult (6) Varicose veins of both lower extremities: Comment: BLE, L>R Will eval and tx after he deals w/ current surgical issue Code(s): I83.93 - Asymptomatic varicose veins of bilateral lower extremities Qualifiers: Varicose vein complication: pain Qualified Code(s): I83.813 - Varicose veins of bilateral lower extremities with pain Orders: Orders TSH reflex Free T4 Today Z01.818 - Encounter for other preprocedural examination Vitamin D 1,25 dihydroxy Today Z01.818 - Encounter for other preprocedural examination Complete Blood Count no Diff Today Z01.818 - Encounter for other preprocedural examination ECG 12 lead EKG Today Z01.818 - Encounter for other preprocedural examination Nicotine and Metabolite, Quant Today Z01.818 - Encounter for other preprocedural examination Comprehensive Met. Panel Today Z01.818 - Encounter for other preprocedural examination Hemoglobin A1c Today Z01.818 - Encounter for other preprocedural examination LDL Cholesterol Direct Today Z01.818 - Encounter for other preprocedural examination Microalbumin, Random (w Creat) Today Z01.818 - Encounter for other preprocedural examination TDaP Immunization Today Z23 - Encounter for immunization Patient Instructions: RTO IN 4-6 MONTHS FOR ROUTINE CARE/ F/U AND EST CARE. SOONER IF NEEDED. Marijuana: Natural = Safe, Right? Marijuana is readily available to use in many states in the [place]. Understanding the possible risks of use is important to ensure the safety. No matter how you use marijuana (smoke it, eat it, or apply to your skin), it may cause problems with both short term and fci use How marijuana affects your BRAIN: Potential effects from Short Term Use Poor focus, memory and reaction time Difficulty with problem solving Hallucinations, paranoia, anxiety Potential effects from Longterm Use Memory problems and trouble learning new things Depression, hallucinations, paranoia, anxiety, worsening PTSD symptoms addiction Brain. It is not safe to drive while on marijuana. It makes it hard to brand marketing specialist distance, concentrate, react quickly to signals and sounds, be alert and coordinated. If alcohol is combined, this risk is even higher! In regular users, some of the effects from fci use may last for days or even weeks after stopping marijuana. How inhaling marijuana affects your LUNGS: Inhaling harmful chemicals Gases Small particles Carcinogens (toxins linked to cancer) Breathing problems similar to tobacco smokers Daily cough with mucus Difficulty breathing Lung infections (bronchitis, pneumonia) Lungs How marijuana affects your HEART: Increases risk of heart attack Within the first hour of smoking Increases heart rate 20?100% increase after smoking Increase lasts up to three hours Changes in heart rhythm Feels like your heart skips a beat, or is fluttering, or beating too fast or too slow Heart Is it SAFE to use marijuana with other medications? A combination that can be concerning is the use of opioids and/or benzodiazepines with marijuana. Opioids + Benzodiazepines + Marijuana: Drowsiness: All three can cause drowsiness. Reaction time: All three can reduce reaction time. Do not drive or operate machinery. Overdose: Opioids and Benzodiazepines can cause reduced breathing and in some cases, breathing can stop and a person can . Marijuana containing higher levels of THC may cause difficulty with thinking and memory and this could result in medication errors where extra doses of opioids, benzodiazepines, or other medications may be taken. What is the harm? Example of Opioids Morphine (MS Contin?, Tammie?) Oxycodone (Percocet?, OxyContin?) Hydrocodone (Vicodin?, [place]?) Fentanyl (Duragesic?) Methadone Heroin Example of Benzodiazepines Lorazepam (Ativan?) Diazepam (Valium?) Alprazolam (Xanax?) Clonazepam (Klonopin?) If you have specific questions about the safety of using marijuana with other medications, please contact your provider or pharmacist. Some marijuana users can become addicted! You can have problems with marijuana withdrawal. You may have withdrawal symptoms the day after you stop using. These can get worse 2 to 3 days after using and can take 1 to 2 weeks or longer to go away. Recovery and Treatment Contact your provider or health care team if you are having concerns about your marijuana use or to learn more about available treatment services. The marijuana plant is not an FDA-approved medicine: The U.S. Food and Drug Administration (FDA) has not approved the marijuana plant as a medication due to lack of studies on the risks and benefits. Marijuana contains over 100 chemical substances known as cannabinoids. Some of these, like tetrahydrocannabinol (THC), have mind altering effects and can be intoxicating. Cannabidiol (CBD), another cannabinoid, does not cause the same ?high? users of THC experience. THC has been studied for the treatment of several conditions, including nausea and increasing appetite. CBD is similarly being studied for a number of conditions, including childhood epilepsy and inflammation. What is different between the marijuana product I get from the marijuana shop and a prescription from the pharmacy? The right dose of any medicine is important. A specific dose of THC is approved to treat nausea, but high doses of THC may cause vomiting. The ingredients in a medicine must be measured and stay the same from one dose to the next. The marijuana plant contains unknown ingredients that change from plant to plant. This makes it hard to control the ?dose? of marijuana needed to treat a condition and use it in the same way we use other medicines. Future studies are ongoing to establish the role of the marijuana plant and the cannabinoids found in the plant for treatment of medical conditions. If you have questions about using a marijuana product for a medical condition, please discuss this with your medical provider to determine the most appropriate treatment for you. [facility] Providers are not able to prescribe marijuana products. Information in this document was compiled by the [facility] Excellence in Substance Abuse treatment and Education (CESTE). It contains information from factsheets by the National [place] on Drug Abuse (www.drugabuse.gov) and presentation by Jerod Ortez, Jerod Membreno, & Romero Huertas (2010) entitled ?What providers need to know about cannabis use in Veterans with mental health conditions: Research, policy, practice,? and an additional reference: Felisa Ybarra M.D., Panfilo Wisdom, Ph.D., Jefry Vasquez M.D., and Evelin Hoffman, Ph.D: Adverse Effects of Marijuana. N Engl J Med 2014; 370:8636-8089, February 16, 2014 DOI: 10.1056/TYVZeb0784958. [facility] Academic Detailing Service Education Aspirin and NSAIDS should be discontinued one week before surgery to prevent excessive bleeding. If you are a smoker, there is increase risk of post surgical complications. Cessation is encouraged. Follow up with surgeon and all recommendations pre and post operatively. Coding Level of Care Code New Pt Level 3 (10836) Complex EM visit Add On G2211 Diagnoses Pre-operative clearance Z01.818 Former cigarette smoker Z87.891 Marijuana user F12.90 Prediabetes R73.03 Class 2 obesity due to excess calories without serious comorbidity with body mass index (BMI) of 36.0 to 36.9 in adult E66.09; Z68.36 Obesity type: due to excess calories Serious obesity comorbidity presence: without serious comorbidity Varicose veins of both lower extremities with pain I83.813 Varicose vein complication: pain Additional Codes ALISON-7 Assessment Billing - ALISON-7 Assessment Tool: ALISON-7 Assessment 30887 ([id number])
[2024-01-06 10:27] VITALS: BP 126/78; PULSE 79; O2SAT 97; BMI 36.5
== END 2024-01-06 11:21 | disposition home or self-care (01) ==
PROVIDERS: PCP Internal Medicine Endocrinology, Diabetes & Metabolism; Visit Provider Nurse Practitioner Family
DX: R73.03 Prediabetes (principal); I83.813 Varicose veins of bilateral lower extremities with pain; Z01.818 Encounter for other preprocedural examination; Z23 Encounter for immunization; Z68.36 Body mass index [BMI] 36.0-36.9, adult; E66.09 Other obesity due to excess calories; Z87.891 Personal history of nicotine dependence; F12.90 Cannabis use, unspecified, uncomplicated
CPT/HCPCS: 90471; 90715; 99203

== ENCOUNTER 2024-01-06 11:05 | Outpatient (REF) | payer OTHER, SELFPAY ==
--- NOTE | 2024-01-06 11:59 | ECG_ITS ---
Test Reason : PREOP Blood Pressure : / mmHG Vent. Rate : 067 BPM Atrial Rate : 067 BPM P-R Int : 184 ms QRS Dur : 092 ms QT Int : 402 ms P-R-T Axes : 063 068 051 degrees QTc Int : 424 ms Normal sinus rhythm Incomplete right bundle branch block Borderline ECG When compared with ECG of 28-AUG-2016 20:16, No significant change was found Referred By: Farida Jorgensen Electronically Signed By:ELHAM DOUGLASS MD
[2024-01-06 14:52] LABS: Hematocrit 45.8 % (42.0-52.0); Hemoglobin 15.4 g/dl (14.0-18.0); Mean Corpuscular HGB Conc 33.6 g/dl (31.0-36.0); Mean Corpuscular Hemoglobin 30.9 pg (27.0-33.0); Mean Platelet Volume 9.2 fL (9.4-12.4); Platelet Count 326 X10*3/uL (160-400); Red Blood Count 4.98 X10*6/uL (4.60-5.80); Red Cell Distribution Width 14.5 % (11.0-16.0); White Blood Count 6.8 X10*3/uL (4.8-10.8)
[2024-01-06 15:24] LABS: Estimated Average Glucose 126 mg/dL
[2024-01-06 16:01] LABS: Alanine Aminotransferase 38 U/L (0-40); Albumin Level 4.4 g/dL (3.5-5.0); Alkaline Phosphatase 89 U/L (39-117); Anion Gap 13 (12-20); Aspartate Amino Transferase 28 U/L (5-37); Bilirubin Total 0.6 mg/dL (0.0-1.0); Blood Urea Nitrogen 13 mg/dL (9-16); Calcium 9.4 mg/dL (8.4-10.2); Carbon Dioxide 23 mmol/L (22-29); Chloride 108 mmol/L (96-108); Estimated Glomerular Filt Rate > 60; Glucose Random 101 mg/dL (60-115); Potassium 4.1 mmol/L (3.3-5.1); Sodium 140 mmol/L (135-145); TSH reflex Free T4 0.37 uIU/mL (0.32-4.0); Total Protein 8.2 g/dL (6.5-8.0)
[2024-01-06 16:56] LABS: Creatinine Urine 168.04 mg/dL; Microalbum/Creatinine Ratio Ur 7.1 ug/mg cr (<30)
[2024-01-08 10:03] LABS: LDL Cholesterol Direct 159 mg/dL (<100)
[2024-01-10 05:54] LABS: VITAMIN D (1,25 OH) D3 50 pg/mL; Vit D (1,25-Dihydroxy) Total 50 pg/mL (18-72); Vitamin D (1,25 OH) D2 <8 pg/mL
[2024-01-13 00:12] LABS: Cotinine 5 ng/mL; Nicotine <2 ng/mL
== END 2024-01-06 11:06 | disposition home or self-care (01) ==
LOC: HO.WFDLDS 11:05
PROVIDERS: PCP Nurse Practitioner Family; Visit Provider Nurse Practitioner Family
DX: Z01.818 Encounter for other preprocedural examination (principal)
CPT/HCPCS: 36415; 80053; 80323; 82043; 82570; 82652; 83036; 83721; 84443; 85027; 93005

== ENCOUNTER → 2024-01-06 11:59 | Outpatient (BNV) | payer OTHER, SELFPAY | PROVIDERS: PCP Nurse Practitioner Family; Visit Provider Internal Medicine Cardiovascular Disease | DX: I45.19 Other right bundle-branch block (principal); Z01.810 Encounter for preprocedural cardiovascular examination | CPT/HCPCS: 93010 ==

== ENCOUNTER 2024-02-02 11:13 | Outpatient (AMB) | payer OTHER, SELFPAY ==
--- NOTE | 2024-02-02 11:22 | MHC.PC.OV ---
Vital Signs 02/02/24 11:24 Height 6 ft 2 in Weight 281 lb BMI 36.1 BP 138/73 Blood Pressure Location Lt brachial Position Sitting Respiration 16 Pulse 67 Pulse Source Pulse Oximeter Temp 98.2 F Temp Source Oral Pulse Oximetry (%) 98 Oxygen Delivery Method Room Air Intake Visit Reasons: ham toe with k wire fixation surg on his lf foot Intake Note: Pre op for surgery on right toe. Paperwork on provider desk for DFMLA. Mail Censor Required: No Accompanied by: Spouse Allergies oxycodone [From PERCOCET] Allergy (Intermediate, Verified 02/02/24 11:23) DIZZINESS Tobacco use date assessed: 01/06/24 Dental Screening Dental Screen Date: 01/06/24 HPI HPI Comments History of Present Illness Details 54-year-old male BPPV, obesity, former tobacco use, current marijuana user, varicose veins, PVD, prediabetes Specialists: Podiatry Here today for a pre-op exam, previous exam done > 30 days before surgery, so repeat visit is required. Surgery Type: L foot surgery Anesthesia Type: General Surgeon: Dr Celis Date: February 24, 2024 Any past surgical procedures: none Any complications from anesthesia or in post-op period: has never had surgery ASA or NSAID Use: Ibuprofen, however says she discontinued this and he is only taking APAP Current smoker: Quit 08/2023 Alcohol use: Drinks beer 12 pack per week Drug use: smokes marijuana daily METs: > 4 climb flight of stairs, golf, walk, yardwork Medical history: Asthma reports childhood asthma, no adult treatment, not on medication COPD denies Obesity BMI 36.1 Diabetes denies Tdap 12/2023 RCRI is Class 1. Risk Stratification: 3.9?%, Low risk Labs from 01/07/2024 show normal CBC, normal CMP, hemoglobin A1c 6.0%, normal TSH, normal urine, LDL 159, Vit D normal, Nicotine NEGATIVE EKG Read: Vent. Rate : 067 BPM Atrial Rate : 067 BPM P-R Int : 184 ms QRS Dur : 092 ms QT Int : 402 ms P-R-T Axes : 063 068 051 degrees QTc Int : 424 ms Normal sinus rhythm Incomplete right bundle branch block Borderline ECG When compared with ECG of 28-AUG-2016 20:16, No significant change was found Acceptable risk for planned surgery. Medically cleared. [facility] Medical History (Updated 02/02/24 @ 11:[facility] Varicose veins of both lower extremities No active medical problems Surgical History (Updated 01/08/24 @ 10:10 by Marely Aguiar CMA) No pertinent past surgical history Family History (Updated 01/08/24 @ 10:18 by Marely Aguiar CMA) Mother Hypertension Cardiovascular disease Breast cancer Maternal Grandmother Hypertension High cholesterol Brother Diabetes Social History (Updated 01/08/24 @ 10:12 by Marely Aguiar CMA) Household Members: Family Housing: House Are you a primary personal care service provider to a significant other at home: No Do you presently have visiting nurse or other home services: No 75 years or older and lives alone: No Alcohol intake: current Alcohol intake frequency: 0-2 drinks per day Alcohol type: beer Patient Tobacco Use Status: Former Tobacco user Quit Date: 08/2023 Tobacco use type: Cigarette Cigarette Packs Per Day: 1 e-Cigarette/Vaping Use: Never Used Second Hand Smoke Exposure: No Substance Use Type: Marijuana service: No Current occupational status: employed Current occupational exposures/hazards: No Sexual orientation: Straight/Heterosexual Gender identity: Male Cognitive needs: No Hearing needs: No Vision needs: No Questionnaire Thrive Questionnaire Date Thrive assessed: 01/06/24 ALISON-7 AMB Questionnaire ALISON-7 Date ALISON - 7 assessed: 01/06/24 Source: Developed by Drs. Clifton gNuyễn, Kalli Juarez, Cecilio Hernandes and colleagues, with an educational ganesh from [employer]. Review of Systems Const All systems reviewed & are unremarkable except as noted in HPI and below Physical exam (Primary Care) Vital Signs: Last Vital Signs Temp 98.2 F 02/02/24 11:24 Pulse 67 02/02/24 11:24 Resp 16 02/02/24 11:24 BP 138/73 02/02/24 11:24 Pulse Ox 98 02/02/24 11:24 Oxygen Delivery Method Room Air 02/02/24 11:24 BMI result Body Mass Index 36.1 BMI Assessment/Plan discussion: High BMI High, discussed plan: lifestyle Tobacco/Smoking Status: Tobacco use Status Tobacco use date assessed 01/06/24 02/02/24 11:28 Patient Tobacco Use Status Former Tobacco user 02/02/24 11:28 Tobacco use type Cigarette 02/02/24 11:28 e-Cigarette/Vaping Use Never Used 02/02/24 11:28 Thrive Assessment: Date of Thrive Assessment Date Thrive assessed 01/06/24 02/02/24 11:28 Const Other: awake alert accompanied by scleras nonicteric MMM RRR LS CTAB BLE + varicosities Assessment and Plan Assessment & Plan (1) Pre-operative clearance: Comment: Acceptable risk for planned surgery. Medically cleared Code(s): Z01.818 - Encounter for other preprocedural examination Patient Instructions: Given the amount of pain that he is having with the left foot, I have given him an out of work note through 02/05/2024. His next appointment with the surgeon is 02/04/2024. He presented with [place] paperwork today and I have advised him and his to bring this to the surgeon to be completed. If they have any issues I have asked for them to let me know so that I can help. Return to office as scheduled, sooner as needed. Coding Level of Care Code Tele Est Pt Level 3 (37577) Diagnoses Pre-operative clearance Z01.818
[2024-02-02 11:24] VITALS: BP 138/73; PULSE 67; RESP 16; TEMP 36.8; O2SAT 98; BMI 36.1
== END 2024-02-02 11:50 | disposition home or self-care (01) ==
PROVIDERS: PCP Nurse Practitioner Family; Visit Provider Nurse Practitioner Family
DX: Z01.818 Encounter for other preprocedural examination (principal)
CPT/HCPCS: 99213

== ENCOUNTER 2024-02-04 14:48 | Outpatient (REF) | payer OTHER, SELFPAY ==
[2024-02-04 15:43] LABS: C Reactive Protein 0.61 mg/dL (< or = 0.50); Uric Acid 5.8 mg/dL (3.4-7.0)
[2024-02-04 15:57] LABS: Erythrocyte Sedimentation Rate 19 MM/HR (0-15)
== END 2024-02-04 14:49 | disposition home or self-care (01) ==
LOC: HO.LAB 14:48
PROVIDERS: PCP Nurse Practitioner Family; Visit Provider Podiatrist
DX: M25.579 Pain in unspecified ankle and joints of unspecified foot (principal)
CPT/HCPCS: 36415; 84550; 85652; 86140

== ENCOUNTER 2024-04-18 09:49 | Outpatient (AMB) | payer OTHER, SELFPAY ==
--- NOTE | 2024-04-18 09:56 | A.OFFPC_ITS ---
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: No Allergies oxycodone [From PERCOCET] Allergy (Intermediate, Verified 04/18/24 09:56) DIZZINESS Medication List - Last Reconciled 04/18/24 by SY Alba- acetaminophen (Tylenol Extra Strength) 500 mg PO Q6H PRN cholecalciferol (vitamin D3) 125 mcg PO DAILY cyclobenzaprine 10 mg PO TID PRN ibuprofen 800 mg PO Q8H Tobacco use date assessed: 01/06/24 Dental Screening Dental Screen Date: 01/06/24 HPI HPI Comments 2 History of Present Illness0 Details 54-year-old male with BPPV, obesity, for lois tobacco use, current marijuana user, varicose veins, PVD, prediabetes , gout Family hx: States that all of his sisters has some sort of cancer, mentions breast cancer and leukemia. He also reports that his mom had some type of cancer but is not really sure about the details. Social: works at [employer] Specialists: Podiatry Health Maintenance: Colon has never had one, [place] [facility] [place] has not had one done, will get done today Here today for routine follow up of chronic conditions. He is recovering well from his recent left foot surgery, done by Dr. Celis. Had his postop appointment last week, he is in a walking boot for 3 weeks. He reports normal, uneventful recovery. 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 States i will need to take this RX over. I will request the notes from podiatry, I do not have these right now. Otherwise he does have a few other concerns. The 1st is that of epigastric pain. When get up in the morning, gets hunger pain, described as overwhelming; makes him nauseas, feel off balance, doesnt feel right . He feels week, can vomit @ times and become sweaty. When he is able to eat, has to eat only a little a time. Then 2 hours after eating, he is starving and his stomach starts hurting again. Also has acid reflux. Is taking NSAIDs. Has breast lumps, reports imaging done in the past and this was negative. However reports getting bigger. I do not have any of the copies of the imaging that was done. They described that a mammogram was done and this was normal. Also reports an ultrasound was done, and it sounds more like these areas were soft tissues maybe like a lipoma. Be that as it may, he is worried as they are getting bigger. Finally has concerns about some skin lesions. On the left trunk about 1 week ago noticed a luo colored rash, it was not itchy, no at home treatments. He also has a raised skin lesion under his right axilla and on his right scapula. He is not active with Dermatology at this time but is interested in a referral Exam: awake alert accompanied by scleradam nonicteric MMM RRR LS CTAB Abd round, soft, normoactive bowel sounds, nontender BLE + varicosities Walking boot L foot Plan: Refer to GI, Derm Check ultrasound of the chest to evaluate the areas on his chest. Get consult notes from Podiatry to see about Gout medications Check some add'l labs to eval the cause for GI complaints. Return to office in 3 months for routine follow up, sooner as needed. This note is constructed using voice recognition software. While every effort has been made to ensure accuracy in drill operator automatic, still errors may have been included Sometimes, these errors may affect the content or meaning of the given sentence . Total time spent caring for the patient today was 45 minutes. This includes time spent before the visit reviewing the chart, time spent during the visit, and time spent after the visit on documentation FORMERLY [facility], [facility] Medical History (Updated 04/18/24 @ 13:50 by Farida Jorgensen, RIBBON LAPPER TENDER-) Varicose veins of both lower extremities No active medical problems Surgical History (Updated 01/08/24 @ 10:10 by Marely Aguiar CMA) No pertinent past surgical history Family History (Updated 01/08/24 @ 10:18 by Marely Aguiar CMA) Mother Hypertension Cardiovascular disease Breast cancer Maternal Grandmother Hypertension High cholesterol Brother Diabetes Social History (Updated 01/08/24 @ 10:12 by Marely Aguiar CMA) Household Members: Family Housing: House Are you a primary managed care provider to a significant other at home: No Do you presently have visiting nurse or other home services: No Alcohol intake: current Alcohol intake frequency: 0-2 drinks per day Alcohol type: beer Patient Tobacco Use Status: Former Tobacco user Tobacco use type: Cigarette Cigarette Packs Per Day: 1 e-Cigarette/Vaping Use: Never Used Second Hand Smoke Exposure: No Substance Use Type: Marijuana service: No Current occupational status: employed Current occupational exposures/hazards: No Sexual orientation: Straight/Heterosexual Gender identity: Male Cognitive needs: No Hearing needs: No Vision needs: No Questionnaire Thrive Questionnaire Date Thrive assessed: 01/06/24 ALISON-7 AMB Questionnaire ALISON-7 Date ALISON - 7 assessed: 01/06/24 Source: Developed by Drs. Clifton Nguyễn, Kalli Juarez, Cecilio Hernandes and colleagues, with an educational ganesh from [employer]. Physical exam (Primary Care) Vital Signs: Last Vital Signs Pulse 64 04/18/24 09:58 Resp 18 04/18/24 09:58 BP 134/80 04/18/24 09:58 Pulse Ox 97 04/18/24 09:58 Oxygen Delivery Method Room Air 04/18/24 09:58 Tobacco/Smoking Status: Tobacco use Status Tobacco use date assessed 01/06/24 04/18/24 10:00 Patient Tobacco Use Status Former Tobacco user 04/18/24 10:00 Tobacco use type Cigarette 04/18/24 10:00 e-Cigarette/Vaping Use Never Used 04/18/24 10:00 Thrive Assessment: Date of Thrive Assessment Date Thrive assessed 01/06/24 04/18/24 10:00 Chest Chest/axillae images: 2 1. in a triangular pattern, there are 3 palpable solid mobile masses, with the anterior one being the biggest. Reports tenderness w palp to the bottom left one. Overlying skin is intact. Breast exam performed and WNL. 2. keloid like skin lesion Back/Spine/Pelvis Back/spine/pelvis image: 2 1. raised luo/anders mole 2. luo flat skin lesion with scattered luo flat lesions surrounding the larger lesion. Assessment and Plan Assessment & Plan (1) Screen for colon cancer: Code(s): Z12.11 - Encounter for screening for malignant neoplasm of colon (2) Epigastric pain: Code(s): R10.13 - Epigastric pain (3) Skin rash: Code(s): R21 - Rash and other nonspecific skin eruption (4) Atypical pigmented skin lesion: Code(s): L81.9 - Disorder of pigmentation, unspecified (5) Screening for prostate cancer: Code(s): Z12.5 - Encounter for screening for malignant neoplasm of prostate (6) Lump in chest: Code(s): R22.2 - Localized swelling, mass and lump, trunk (7) Gout: Code(s): M10.9 - Gout, unspecified Qualifiers: Gout site: foot Gout etiology: unspecified cause Chronicity: chronic Laterality: left Qualified Code(s): M1A.0720 - Idiopathic chronic gout, left ankle and foot, without tophus (tophi) Orders: Orders 2 Amylase Today R10.13 - Epigastric pain, Z12.5 - Encounter for screening for malignant neoplasm of prostate Lipase Today R10.13 - Epigastric pain, Z12.5 - Encounter for screening for malignant neoplasm of prostate H pylori Ag Stool Today R10.13 - Epigastric pain, Z12.5 - Encounter for screening for malignant neoplasm of prostate Hepatitis A,B,C Profile Today R10.13 - Epigastric pain, Z12.5 - Encounter for screening for malignant neoplasm of prostate PSA, Ultra Sensitive Today R10.13 - Epigastric pain, Z12.5 - Encounter for screening for malignant neoplasm of prostate US chest Today R22.2 - Localized swelling, mass and lump, trunk Referrals 2 Gastroenterology Referral R10.13 - Epigastric pain, Z12.11 - Encounter for screening for malignant neoplasm of colon Dermatology Referral L81.9 - Disorder of pigmentation, unspecified, R21 - Rash and other nonspecific skin eruption Coding Level of Care Code Est Pt Level 5 (46626) Diagnoses Screen for colon cancer Z12.11 Epigastric pain R10.13 Skin rash R21 Atypical pigmented skin lesion L81.9 Screening for prostate cancer Z12.5 Lump in chest R22.2 Chronic gout of left foot, unspecified cause M1A.0720 Gout site: foot Gout etiology: unspecified cause Chronicity: chronic Laterality: left
[2024-04-18 09:58] VITALS: BP 134/80; PULSE 64; RESP 18; O2SAT 97
== END 2024-04-18 10:55 | disposition home or self-care (01) ==
PROVIDERS: PCP Internal Medicine Endocrinology, Diabetes & Metabolism; Visit Provider Nurse Practitioner Family
DX: R21 Rash and other nonspecific skin eruption (principal); Z12.11 Encounter for screening for malignant neoplasm of colon; R10.13 Epigastric pain; L81.9 Disorder of pigmentation, unspecified; Z12.5 Encounter for screening for malignant neoplasm of prostate; R22.2 Localized swelling, mass and lump, trunk; M1A.0720 Idiopathic chronic gout, left ankle and foot, without tophus (tophi)
CPT/HCPCS: 99215

== ENCOUNTER 2024-04-18 11:06 | Outpatient (REF) | payer OTHER, SELFPAY ==
[2024-04-18 14:37] LABS: Lipase 179 U/L (8-78)
[2024-04-18 14:52] LABS: Amylase 150 U/L (28-100)
[2024-04-19 08:18] LABS: HBS Num1 0.29 mIU/mL (0-7.99); HBc Num1 0.18 S/CO (0.00-0.79); HBsAGNum1 0.25 S/CO (0.00-0.99); Hepatitis A Antibody IgM 0.16 Index (0-0.79); Hepatitis B Core Antibody Nonreactive (Nonreactive); Hepatitis B Surface Antigen Negative (Negative); ~HepC Num1 0.13 S/CO (0.00-0.79); ~Hepatitis A Antibody IgM Nonreactive (Nonreactive); ~Hepatitis B Surface Antibody NONREACTIVE (Nonreactive); ~Hepatitis C Antibody Nonreactive (Nonreactive)
[2024-04-24 18:39] LABS: PSA, Ultra Sensitive 1.33 ng/mL
== END 2024-04-18 11:07 | disposition home or self-care (01) ==
LOC: HO.WFDLDS 11:06
PROVIDERS: Visit Provider Nurse Practitioner Family
DX: R10.13 Epigastric pain (principal); Z12.5 Encounter for screening for malignant neoplasm of prostate
CPT/HCPCS: 36415; 82150; 83690; 84153; 86704; 86706; 86709; 86803; 87338; 87340

== ENCOUNTER 2024-05-05 08:47 | Outpatient (REF) | payer OTHER, SELFPAY ==
--- NOTE | ~2024-05-05 | US_ITS ---
EXAMINATION: US ABDOMEN COMPLETE CLINICAL INFORMATION: Epigastric pain. COMPARISON: None available. TECHNIQUE: Real-time imaging of the abdominal viscera. FINDINGS: PANCREAS: The visualized portions of the pancreas are unremarkable but a large portion of the gland is obscured by bowel gas. ABDOMINAL AORTA: The proximal, mid, and distal segments are normal in caliber. INFERIOR VENA CAVA: Visualized portions are normal. LIVER: The liver is normal in size. The liver contour is normal. There is diffuse increased liver parenchymal echogenicity, consistent with hepatic steatosis. No focal hepatic lesion. There is no intrahepatic biliary duct dilatation seen. GALLBLADDER: Normal. The gallbladder is physiologically distended without evidence of stones, sludge, polyps, wall thickening or pericholecystic fluid. COMMON BILE DUCT: Normal in caliber measuring 0.33 cm in diameter. RIGHT KIDNEY: A benign mid renal 2.6 cm Bosniak class I renal cyst is noted which requires no additional imaging or follow up. No solid renal masses are seen. No hydronephrosis or renal calculi. The kidney measures 11.9 cm in maximum dimension. LEFT KIDNEY: A benign upper pole 1.0 cm Bosniak class I renal cyst is noted which requires no additional imaging or follow up. No solid renal masses are seen. No hydronephrosis or renal calculi. The kidney measures 11.1 cm in maximum dimension. SPLEEN: Normal. The spleen measures 7.6 cm in maximum dimension. FREE FLUID: None. US/US abdomen complete IMPRESSION: Hepatic steatosis. Electronically signed by: Ignacio Lopez MD 05/25/2024 02:27 PM EDT
--- NOTE | ~2024-05-05 | US_ITS ---
EXAMINATION: US CHEST CLINICAL INFORMATION: Sternum area 3 cystic lesions, patient reports imaging done of these about 3 years ago, bigger since onset, localized swelling, mass and lump trunk. COMPARISON: None available. TECHNIQUE: Targeted ultrasound images were obtained by the engineering inspector of the area of concern as indicated by the patient in the sternum. Radiologist was not in attendance. Images were later provided for interpretation. FINDINGS: There is a 2.3 x 2.9 x 1.4 cm hypoechoic area with well-defined margins and no internal vascularity in the area of concern indicated by the patient in the sternum. US/US chest IMPRESSION: There is a 2.9 cm hypoechoic area with well-defined margins and no internal vascularity in the area of concern indicated by the patient in the sternum. Decisions regarding further management including possible additional imaging with MRI, surgical consultation and/or biopsy should be based on the clinical assessment. Low-grade liposarcomas may be sonographically indistinguishable from lipomas on ultrasound images. Electronically signed by: Jessica Gongora MD 05/18/2024 06:01 AM EDT
== END 2024-05-05 08:48 | disposition home or self-care (01) ==
LOC: HO.HMGCX 08:47
PROVIDERS: PCP Nurse Practitioner Family; Visit Provider Nurse Practitioner Family
DX: R22.2 Localized swelling, mass and lump, trunk (principal); R10.13 Epigastric pain
CPT/HCPCS: 76604; 76700

== ENCOUNTER 2024-06-08 08:54 | Outpatient (AMB) | payer OTHER, SELFPAY ==
--- NOTE | 2024-06-08 08:57 | MHC.OFFVIS ---
Vital Signs 06/08/24 08:58 Height 6 ft 2 in Weight 296 lb BMI 38.0 Intake Visit Reasons: Localized swelling, mass and lump, trunk Intake Note: This patient presents for Localized swelling, mass and lump, trunk. Pt c/o; reports x3 mass chest wall, 05/05/2024 Chest US. Sound Printer Required: No Accompanied by: Spouse Allergies oxycodone [From PERCOCET] Allergy (Intermediate, Verified 06/08/24 09:05) DIZZINESS Medication List - Last Reconciled 06/08/24 by Gerardo Snyder MD acetaminophen (Tylenol Extra Strength) 500 mg PO Q6H PRN cholecalciferol (vitamin D3) 125 mcg PO DAILY cyclobenzaprine 10 mg PO TID PRN ibuprofen 800 mg PO Q8H HPI HPI Localized swelling, mass and lump, trunk: Details: 54-year-old male referred for a lump on the chest wall. He says that he has had this for about 2 years. He denies significant pain. He denies any skin changes. Denies any discharge. [facility]LY [facility] Medical History (Updated 06/08/24 @ 09:17 by Gerardo Snyder MD) Subcutaneous mass Varicose veins of both lower extremities No active medical problems Surgical History No pertinent past surgical history Family History Mother Hypertension Cardiovascular disease Breast cancer Maternal Grandmother Hypertension High cholesterol Brother Diabetes Social History Household Members: Family Housing: House Are you a primary child care lead teacher to a significant other at home: No Do you presently have visiting nurse or other home services: No 75 years or older and lives alone: No Alcohol intake: current Alcohol intake frequency: 0-2 drinks per day Alcohol type: beer Patient Tobacco Use Status: Former Tobacco user Tobacco use type: Cigarette Cigarette Packs Per Day: 1 e-Cigarette/Vaping Use: Never Used Second Hand Smoke Exposure: No Substance Use Type: Marijuana service: No Current occupational status: employed Current occupational exposures/hazards: No Sexual orientation: Straight/Heterosexual Gender identity: Male Cognitive needs: No Hearing needs: No Vision needs: No Review of Systems Const Denies chills and Denies fever(s) Card Denies chest pain, Denies dyspnea and Denies dyspnea on exertion Resp Denies cough, Denies dyspnea and Denies dyspnea on exertion GI Denies hematochezia and Denies change in bowel habits Denies hematuria and Denies difficulty urinating Musc Denies back pain and Denies limited range of motion Neuro Denies focal weakness and Denies convulsions Psych Denies depression and Denies mood swings Physical Exam Vital Signs: BMI result Body Mass Index 38.0 Const General: comfortable and no acute distress Orientation/consciousness: patient oriented x3 Neck Neck: Yes no lymphadenopathy Chest Other: Lipomatous mass on the lower sternal area, about 2 cm in diameter, well-defined, mobile Resp Auscultation: clear to auscultation bilaterally Cardio Rhythm: regular rhythm GI Palpation (GI): Soft to palpation, nontender and no guarding Neuro General: patient oriented x3 Assessment & Plan Assessment & Plan (1) Subcutaneous mass: Code(s): R22.9 - Localized swelling, mass and lump, unspecified Category: Medical Plan: He has what feels like a lipoma on the sternum as described above. He had an ultrasound showing this subcutaneous mass as well. Explained to him the option of proceeding with excision. I explained the technique of excision under local anesthesia. I reviewed the risks, benefits, and alternatives He says that he will think about it and we will return to the office once he decides to proceed. His was with him during the visit. Coding Level of Care Code New Pt Level 3 (27729) Diagnoses Subcutaneous mass R22.9
[2024-06-08 08:58] VITALS: BMI 38.0
== END 2024-06-08 09:30 | disposition home or self-care (01) ==
PROVIDERS: PCP Nurse Practitioner Family; Visit Provider Surgery
DX: R22.9 Localized swelling, mass and lump, unspecified (principal)
CPT/HCPCS: 99203

== ENCOUNTER → 2024-06-08 08:54 | Outpatient (BNVA) | payer OTHER, SELFPAY | PROVIDERS: PCP Nurse Practitioner Family; Visit Provider Surgery ==

== ENCOUNTER 2024-06-18 10:08 | Outpatient (REF) | payer OTHER, SELFPAY ==
[2024-06-18 12:32] LABS: Erythrocyte Sedimentation Rate 14 MM/HR (0-15)
[2024-06-18 12:41] LABS: Uric Acid 5.7 mg/dL (3.4-7.0)
== END 2024-06-18 10:09 | disposition home or self-care (01) ==
LOC: HO.LAB 10:08
PROVIDERS: PCP Nurse Practitioner Family; Visit Provider Podiatrist
DX: M10.9 Gout, unspecified (principal)
CPT/HCPCS: 36415; 84550; 85652; 86140

== ENCOUNTER → 2024-06-20 08:05 | Outpatient (BNV) | payer OTHER, SELFPAY ==
--- NOTE | 2024-06-20 08:06 | MHC.PC.OV ---
Vital Signs 06/20/24 08:09 Height 6 ft 2 in Weight 284 lb BMI 36.5 BP 134/80 Pulse 64 Intake Visit Reasons: Amb Documentation Transfer Knitter Required: No Allergies oxycodone [From PERCOCET] Allergy (Intermediate, Verified 06/20/24 08:10) DIZZINESS Medication List - Last Reconciled 06/20/24 by KELLE Alba acetaminophen (Tylenol Extra Strength) 500 mg PO Q6H PRN cholecalciferol (vitamin D3) 125 mcg PO DAILY cyclobenzaprine 10 mg PO TID PRN ibuprofen 800 mg PO Q8H Tobacco use date assessed: 01/06/24 Dental Screening Dental Screen Date: 01/06/24 HPI HPI Comments History of Present Illness Details 54-year-old male with BPPV, obesity, former tobacco use, current marijuana user, varicose veins, PVD, prediabetes , gout Family hx: States that all of his sisters has some sort of cancer, mentions breast cancer and leukemia. He also reports that his mom had some type of cancer but is not really sure about the details. Social: works at [employer] Specialists: Podiatry GI Health Maintenance: Colon has never had one, referred [facility] [place] Encounter for [employer] [facility] Form Completion. Form completed. 01/06/24 Hga1c 6.0% Direct LDL 159 No total cholesterol, TG or HDL available. He is a former smoker, confirmed via blood test 01/06/24 He is routinely ff'd by me and his health care team [facility] Medical History (Updated 06/20/24 @ 08:07 by KELLE Alba) Subcutaneous mass Varicose veins of both lower extremities No active medical problems Surgical History No pertinent past surgical history Family History Mother Hypertension Cardiovascular disease Breast cancer Maternal Grandmother Hypertension High cholesterol Brother Diabetes Social History Household Members: Family Housing: House Are you a primary managed care liaison to a significant other at home: No Do you presently have visiting nurse or other home services: No Alcohol intake: current Alcohol intake frequency: 0-2 drinks per day Alcohol type: beer Patient Tobacco Use Status: Former Tobacco user Tobacco use type: Cigarette Cigarette Packs Per Day: 1 e-Cigarette/Vaping Use: Never Used Second Hand Smoke Exposure: No Substance Use Type: Marijuana service: No Current occupational status: employed Current occupational exposures/hazards: No Sexual orientation: Straight/Heterosexual Gender identity: Male Cognitive needs: No Hearing needs: No Vision needs: No Questionnaire Thrive Questionnaire Date Thrive assessed: 01/06/24 ALISON-7 AMB Questionnaire ALISON-7 Date ALISON - 7 assessed: 01/06/24 Source: Developed by Drs. Clifton Nguyễn, Kalli Juarez, Cecilio Hernandes and colleagues, with an educational ganesh from [employer]. Physical exam (Primary Care) Tobacco/Smoking Status: Tobacco use Status Tobacco use date assessed 01/06/24 04/18/24 10:00 Patient Tobacco Use Status Former Tobacco user 04/18/24 10:00 Tobacco use type Cigarette 04/18/24 10:00 e-Cigarette/Vaping Use Never Used 04/18/24 10:00 Thrive Assessment: Date of Thrive Assessment Date Thrive assessed 01/06/24 04/18/24 10:00 Telehealth Telehealth Telehealth Platform: Telephone Location of provider rendering services: practice address Location of patient: address on file Patient Identification confirmed using: Name, : Yes Telehealth method: voice only Patient verbally consented to treatment: Yes Patient verbally consented to billing insurance company: Yes Patient informed of any privacy concerns related to visit: Yes Minutes spent on Phone/Video with Pt.: 10 Coding Level of Care Code Tele Est Pt Level 1 (68174) Diagnoses Encounters for administrative purpose Z02.9 Class 2 obesity due to excess calories without serious comorbidity with body mass index (BMI) of 36.0 to 36.9 in adult E66.09; Z68.36 Obesity type: due to excess calories Serious obesity comorbidity presence: without serious comorbidity Prediabetes R73.03 Former cigarette smoker Z87.891 Assessment & Plan Assessment & Plan (1) Encounters for administrative purpose: Code(s): Z02.9 - Encounter for administrative examinations, unspecified Category: Medical Plan: . (2) Class 2 obesity with body mass index (BMI) of 36.0 to 36.9 in adult: Comment: BMI >36 encouraged lifestyle mods Code(s): E66.9 - Obesity, unspecified; Z68.36 - Body mass index [BMI] 36.0-36.9, adult Category: Medical Qualifiers: Obesity type: due to excess calories Serious obesity comorbidity presence: without serious comorbidity Qualified Code(s): E66.09 - Other obesity due to excess calories; Z68.36 - Body mass index [BMI] 36.0-36.9, adult Plan: . (3) Prediabetes: Comment: 01/06/2024 HgA1c 6.0% Code(s): R73.03 - Prediabetes Category: Medical Plan: . (4) Former cigarette smoker: Comment: Quit 08/2023. Pt states needs a test to prove he quit. Lab order placed. Code(s): Z87.891 - Personal history of nicotine dependence Category: Social Hx Plan: .
[2024-06-20 08:09] VITALS: BP 134/80; PULSE 64; BMI 36.5
== END ==
PROVIDERS: PCP Nurse Practitioner Family; Visit Provider Nurse Practitioner Family
DX: R73.03 Prediabetes (principal); Z02.9 Encounter for administrative examinations, unspecified; E66.09 Other obesity due to excess calories; Z68.36 Body mass index [BMI] 36.0-36.9, adult; Z87.891 Personal history of nicotine dependence
CPT/HCPCS: 99441

== ENCOUNTER 2024-07-05 13:00 | Outpatient (AMB) | payer OTHER, SELFPAY ==
--- NOTE | 2024-07-05 12:48 | A.OFFPC_ITS ---
Intake Visit Reasons: est/ gout on foot Allergies oxycodone [From PERCOCET] Allergy (Intermediate, Verified 07/05/24 15:27) DIZZINESS Medication List - Last Reconciled 07/05/24 by SY Alba- acetaminophen (Tylenol Extra Strength) 500 mg PO Q6H PRN cholecalciferol (vitamin D3) 125 mcg PO DAILY colchicine 0.6 mg PO DIRECTED 1 day cyclobenzaprine 10 mg PO TID PRN ibuprofen 800 mg PO Q8H Tobacco use date assessed: 01/06/24 Dental Screening Dental Screen Date: 01/06/24 HPI HPI Comments History of Present Illness Details 54-year-old male with BPPV, obesity, for lois tobacco use, current marijuana user, varicose veins, PVD, prediabetes , gout Status post fusion first MTP J left and hammertoe with K-wire fixation left 2nd toe 02/24/24 Dr Celis Telehealth visit today for complaints of pain and a rash affecting the left foot and ankle. He reports that he went back to work recently after being cleared by the medical certification specialist status post surgery and was doing fine at with no pain. That on Thursday he started to notice a rash around his ankle, reports that he felt the rash while he was walking. Described it as red with red dots and very painful to the touch. By Thursday his foot was swollen like a balloon . Reports calling Dr. Celis. He was seen for this and prescribed topical cortisone cream. Reports that the rash is much better however the skin to the ankle still remains very tender to the touch. When he looks at his leg on the outside the skin is normal however on the inside of the ankle and extending all the way up the calf the skin is red with small white dots and reports that the ankle is bluish in color like a very bad bruise. The skin is hurting so bad that even when his jeans touch it it was very painful. In the interim he was treated several times with colchicine for gout. Makes a mention of needing something to control his gout. A review of the consult note from June 17 indicates al lopurinol recommendation to be discuss with me. He has an appointment today with Dr. Celis at 15:00 He denies any chest pain, shortness of breath. Plan: Stat ultrasound of the left lower extremity to rule out DVT Start allopurinol 100 mg p.o. daily to control gout flares. Okay to keep colchicine on hand and use as needed. At 14:45 I was alerted by the hvac service technician that he does have a clot in his gastrocs vein of the left lower extremity. He was advised to go to the emergency room for further evaluation and treatment. I will need to follow up with him after discharge. This note is constructed using voice recognition software. While every effort has been made to ensure accuracy in dictionary editor, still errors may have been included Sometimes, these errors may affect the content or meaning of the given sentence . Total time spent caring for the patient today was 40 minutes. This includes time spent before the visit reviewing the chart, time spent during the visit, and time spent after the visit on documentation [facility] Medical History (Updated 07/05/24 @ 15:33 by Farida Jorgensen, [facility]) Subcutaneous mass Varicose veins of both lower extremities No active medical problems Surgical History No pertinent past surgical history Family History Mother Hypertension Cardiovascular disease Breast cancer Maternal Grandmother Hypertension High cholesterol Brother Diabetes Social History Household Members: Family Housing: House Are you a primary career development manager to a significant other at home: No Do you presently have visiting nurse or other home services: No Alcohol intake: current Alcohol intake frequency: 0-2 drinks per day Alcohol type: beer Patient Tobacco Use Status: Former Tobacco user Tobacco use type: Cigarette Cigarette Packs Per Day: 1 e-Cigarette/Vaping Use: Never Used Second Hand Smoke Exposure: No Substance Use Type: Marijuana service: No Current occupational status: employed Current occupational exposures/hazards: No Sexual orientation: Straight/Heterosexual Gender identity: Male Cognitive needs: No Hearing needs: No Vision needs: No Questionnaire Thrive Questionnaire Date Thrive assessed: 01/06/24 ALISON-7 AMB Questionnaire ALISON-7 Date ALISON - 7 assessed: 01/06/24 Source: Developed by Drs. Clifton Nguyễn, Kalli Juarez, Cecilio Hernandes and colleagues, with an educational ganesh from [employer]. Physical exam (Primary Care) Tobacco/Smoking Status: Tobacco use Status Tobacco use date assessed 01/06/24 07/05/24 12:49 Patient Tobacco Use Status Former Tobacco user 07/05/24 12:49 Tobacco use type Cigarette 07/05/24 12:49 e-Cigarette/Vaping Use Never Used 07/05/24 12:49 Thrive Assessment: Date of Thrive Assessment Date Thrive assessed 01/06/24 07/05/24 12:49 Telehealth Telehealth Telehealth Platform: Telephone Location of provider rendering services: practice address Location of patient: address on file Patient Identification confirmed using: Name, : Yes Telehealth method: voice only Patient verbally consented to treatment: Yes Patient verbally consented to billing insurance company: Yes Patient informed of any privacy concerns related to visit: Yes Minutes spent on Phone/Video with Pt.: 12 Coding Level of Care Code Tele Est Pt Level 5 (75406) Complex EM visit Add On G2211 Diagnoses Acute deep vein thrombosis (DVT) of calf muscle vein of left lower extremity I82.462 Affected thrombotic vein of extremity: calf muscle vein Chronicity: acute Chronic gout of left foot, unspecified cause M1A.0720 Chronicity: chronic Gout etiology: unspecified cause Gout site: foot Laterality: left Swelling of lower extremity M79.89 Assessment & Plan Assessment & Plan (1) Left leg DVT: Code(s): I82.402 - Acute embolism and thrombosis of unspecified deep veins of left lower extremity Category: Medical Qualifiers: Affected thrombotic vein of extremity: calf muscle vein Chronicity: acute Qualified Code(s): I82.462 - Acute embolism and thrombosis of left calf muscular vein Plan: . (2) Gout: Code(s): M10.9 - Gout, unspecified Category: Medical Qualifiers: Chronicity: chronic Gout etiology: unspecified cause Gout site: foot Laterality: left Qualified Code(s): M1A.0720 - Idiopathic chronic gout, left ankle and foot, without tophus (tophi) Plan: . (3) Swelling of lower extremity: Code(s): M79.89 - Other specified soft tissue disorders Category: Medical Plan: . Plan . Orders: Orders US venous duplex LE LT Today M1A.0720 - Idiopathic chronic gout, left ankle and foot, without tophus (tophi), M79.89 - Other specified soft tissue disorders Medications: New allopurinol 100 mg PO DAILY 90 tabs 0RF
== END 2024-07-05 13:09 | disposition home or self-care (01) ==
LOC: HO.HMCFM 13:00
PROVIDERS: PCP Nurse Practitioner Family; Visit Provider Nurse Practitioner Family
DX: I82.462 Acute embolism and thrombosis of left calf muscular vein (principal); M1A.0720 Idiopathic chronic gout, left ankle and foot, without tophus (tophi); M79.89 Other specified soft tissue disorders

== ENCOUNTER → 2024-07-05 13:00 | Outpatient (BNVA) | payer OTHER, SELFPAY | PROVIDERS: PCP Nurse Practitioner Family; Visit Provider Nurse Practitioner Family | DX: M79.89 Other specified soft tissue disorders (principal); M1A.0720 Idiopathic chronic gout, left ankle and foot, without tophus (tophi) ==

== ENCOUNTER 2024-07-05 13:50 | Outpatient (REF) | payer OTHER, SELFPAY ==
--- NOTE | ~2024-07-05 | US_ITS ---
EXAMINATION: US TRIPLEX LOWER EXTREMITY, LEFT CLINICAL INFORMATION: Status post foot surgery with lower extremity edema COMPARISON: None available. TECHNIQUE: Color-flow triplex imaging with spectral analysis and compression Doppler were performed on the left lower extremity. FINDINGS: Respiratory variation, normal compression and augmented flow are noted throughout the left lower extremity. The visualized common femoral vein, superficial femoral vein, profunda femoral vein, popliteal vein and midcalf peroneal and posterior tibial venous segments show no evidence of deep venous thrombosis. There is some focal thrombus is seen within the gastrocnemius vein of the left calf. There is no Pak's cyst. US/US venous duplex LE LT IMPRESSION: Focal thrombus seen within the gastrocnemius vein of the left calf. No evidence of deep venous thrombosis otherwise Electronically signed by: Hakeem Ron MD 07/05/2024 03:32 PM EDT
== END 2024-07-05 13:51 | disposition home or self-care (01) ==
LOC: HO.US 13:50
PROVIDERS: PCP Nurse Practitioner Family; Visit Provider Nurse Practitioner Family
DX: M1A.0720 Idiopathic chronic gout, left ankle and foot, without tophus (tophi) (principal); R60.0 Localized edema
CPT/HCPCS: 93971

== ENCOUNTER 2024-07-05 14:51 | Emergency (ER) | payer OTHER, SELFPAY ==
[2024-07-05 15:26] VITALS: BP 109/67; PULSE 64; RESP 16; TEMP 36.9; O2SAT 97; BMI 37.6
--- NOTE | 2024-07-05 15:32 | ED_ITS ---
HPI - Extremity Injury (Lower) General Chief Complaint: Extremity Injury, Lower Stated Complaint: DVT L leg Time Seen by Provider: 07/05/24 15:45 Source: patient, RN notes reviewed and old records reviewed Mode of arrival: ambulatory History of Present Illness ED Provider: Jolly Banks PA-C HPI Narrative: 54-year-old male with a past medical history of left bunion surgery in March, gout, presenting to the ED sent from outpatient ultrasound for + DVT. Patient was at his PCP's office today being evaluated for left lower extremity pain and swelling, sent for outpatient ultrasound. States he is currently being treated for gout however symptoms have been worsening despite gout treatment. Denies history of clots, recent travel, long car rides/plane rides, SOB, CP Related Data Home Medications ?Medication ?Instructions ?Recorded ?Confirmed cholecalciferol (vitamin D3) 125 125 mcg PO DAILY 04/18/24 07/05/24 mcg (5,000 unit) tablet ibuprofen 800 mg tablet 800 mg PO Q8H 04/18/24 07/05/24 Previous Rx's ?Medication ?Instructions ?Recorded acetaminophen 500 mg tablet 500 mg PO Q6H PRN fever or pain 04/15/22 (Tylenol Extra Strength) #14 tabs cyclobenzaprine 10 mg tablet 10 mg PO TID PRN muscle spasm #14 04/15/22 tabs colchicine 0.6 mg capsule 0.6 mg PO DIRECTED 1 day #3 caps 06/20/24 allopurinol 100 mg tablet 100 mg PO DAILY #90 tabs 07/05/24 apixaban 5 mg (74 tabs) tablets in 5 mg PO BID #74 ea 07/05/24 a dose pack (Eliquis DVT-PE Treat 30D Start) Allergies Allergy/AdvReac Type Severity Reaction Status Date / Time oxycodone [From PERCOCET] Allergy Intermediate DIZZINESS Verified 07/05/24 15:27 Review of Systems 2 Review of Systems: Yes all other systems are reviewed and are negative Constitutional: Constitutional: Reports as per [facility] Past Medical History Attestation statement: The following information was validated with the patient. Source: old records reviewed Medical History Subcutaneous mass Varicose veins of both lower extremities No active medical problems Surgical History No pertinent past surgical history Family History Family History Mother Hypertension Cardiovascular disease Breast cancer Maternal Grandmother Hypertension High cholesterol Brother Diabetes Social History Social History Household Members: Family Housing: House Are you a primary health care assistant to a significant other at home: No Do you presently have visiting nurse or other home services: No Alcohol intake: current Alcohol intake frequency: 0-2 drinks per day Alcohol type: beer Patient Tobacco Use Status: Former Tobacco user Tobacco use type: Cigarette Cigarette Packs Per Day: 1 e-Cigarette/Vaping Use: Never Used Second Hand Smoke Exposure: No Substance Use Type: Marijuana Advance Directives: No Advance Directives Information Provided: Yes Do you have a plan to hurt others: No Plan service: No Current occupational status: employed Current occupational exposures/hazards: No Sexual orientation: Straight/Heterosexual Gender identity: Male Cognitive needs: No Hearing needs: No Vision needs: No Physical Exam 2 Vital Signs: Vital Signs: Last Vital Signs Temp 97.3 F 07/05/24 17:37 Pulse 66 07/05/24 17:37 Resp 18 07/05/24 17:37 BP 136/82 07/05/24 17:37 Pulse Ox 94 07/05/24 17:37 O2 Del Method Room Air 07/05/24 17:37 BMI result Body Mass Index 37.6 Const: General: cooperative, healthy appearing and no acute distress O rientation/consciousness: patient oriented x3 Limitations: no limitations HEENT: Head: Yes normal to inspection and Yes atraumatic Ears: hearing grossly normal bilaterally General nose exam: Normal external nose present Face and sinus: Yes normal facial exam Eyes: General: appearance normal, both eyes and all related structures EOM: EOMs intact bilaterally Neck: Neck: Yes normal visual inspection and Yes no meningeal signs Resp: Effort & Inspection: normal respiratory effort and no respiratory distress Cardio: Rate: regular rate Skin: Rashes: no rashes Wounds: no wounds Neuro: General: patient oriented x3, tone normal and no meningeal signs C ranial nerves: Yes CN's II-XII intact bilaterally Gait exam (Neuro): Normal gait present Extrem: Other: +LLE with appreciable swelling/pitting e teddy and tenderness. Neurovascularly intact. No erythema/warmth Course Course Course Narrative: This is a rapid medical exam performed by Ruthann Vuong PA-C. The patient is a 54-year-old male presenting with left lower extremity pain and swelling x2 weeks. Patient states he had left bunion surgery, since he has developed progressive swelling of the left lower extremity. He had an outpatient DVT study that was positive. He was sent here for further assessment. Denies shortness of breath or chest pain. On exam, the left lower extremity is more swollen when compared to the right. Order screening labs, LFTs and coags. He is hemodynamically stable again can return to the waiting room pending his full assessment. 170--US venous duplex LE LT IMPRESSION: Focal thrombus seen within the gastrocnemius vein of the left calf. No evidence of deep venous thrombosis otherwise > labs reassuring. Will initiate patient on Eliquis for DVT treatment. Discussed he needs to stop taking allopurinol when starting anticoagulation and have close follow-up with his doctor as well as Hematology Results discussed with patient including worrisome signs and symptoms and strict return precautions, and when to return to the emergency department. They verbalized understanding and feel safe for discharge at this time. Medical Decision Making Medical Decision Making [facility] Narrative: 54-year-old male with a past medical history of left bunion surgery in March, gout, presenting to the ED sent from outpatient ultrasound for + DVT. On exam vital signs stable, NAD, nontoxic appearing, physical exam as noted above. Concern for DVT. No evidence of cellulitis. No evidence of compartment syndrome Plan: Labs Please refer to course for remaining clinical decision making, interpretation of labs/imaging results, and discussions with consultants and/or family members. Differential Diagnosis Differential Diagnoses: The differential diagnosis associated with the presentation includes As above Lab Data [facility] Lab Attestation statement: I reviewed the patient's lab results. 07/05/24 15:44 07/05/24 15:44 Labs: Lab Results 07/05/24 Range/Units 15:44 WBC 8.9 (4.8-10.8) X10*3/uL RBC 4.72 (4.60-5.80) X10*6/uL Hgb 14.6 (14.0-18.0) g/dl Hct 43.2 (42.0-52.0) % MCV 91.5 (80.0-98.0) fL MCH 30.9 (27.0-33.0) pg MCHC 33.8 (31.0-36.0) g/dl RDW 14.3 (11.0-16.0) % Plt Count 304 (160-400) X10*3/uL MPV 8.7 L (9.4-12.4) fL Immature Gran % (Auto) 0.2 (0.0-0.4) % Neut % (Auto) 55.3 (45-73) % Lymph % (Auto) 33.6 (20-40) % [place] % (Auto) 7.2 (2-11) % Eos % (Auto) 3.1 (0-4) % Baso % (Auto) 0.6 (0-2) % Lymph # (Auto) 3.0 (1.2-4.9) X10*3/uL [place] # (Auto) 0.6 (0.1-1.2) X10*3/uL Eos # (Auto) 0.3 (0.0-0.4) X10*3/uL Baso # (Auto) 0.1 (0.0-0.2) X10*3/uL Abs Immat Gran (auto) 0.02 (0.00-0.03) X10*3/uL Absolute Neuts (auto) 5.0 (2.0-8.3) x10*3/uL Absolute Nucleated RBC 0.000 (0.0-0.012) X10*3/uL Nucleated RBC % (auto) 0.0 (0.0-0.2) /100WBC PT 10.9 (10.9-12.4) SEC INR 0.9 (0.9-1.1) APTT 27.9 (26.0-36.8) SEC Sodium 142 (135-145) mmol/L Potassium 4.2 (3.3-5.1) mmol/L Chloride 109 H (96-108) mmol/L Carbon Dioxide 26 (22-29) mmol/L Anion Gap 11 L (12-20) BUN 15 (9-16) mg/dL Creatinine 1.02 (0.5-1.4) mg/dL Estim Creat Clear Calc 121.4 Estimated GFR > 60 Random Glucose 111 (60-115) mg/dL Calcium 10.0 D (8.4-10.2) mg/dL Magnesium 2.3 (1.6-2.6) mg/dL Total Bilirubin 0.3 (0.0-1.0) mg/dL AST 26 (5-37) U/L ALT 48 H (0-40) U/L Alkaline Phosphatase 101 (39-117) U/L Total Protein 7.5 (6.5-8.0) g/dL Albumin 4.2 (3.5-5.0) g/dL Independent Interpretation I performed an independent interpretation of an: Ultrasound Radiology Impression Discussion of test interpretation with radiology: I have reviewed the radiologist's reading. External Record Review External record reviewed: Inpatient record, Office record, Outpatient record, Prior outpatient labs, Prior outpatient radiology, Primary care record and Outside ED record Tests considered The following testing was considered but not selected: As above Prescription Management I considered prescription management with: Pain Medication Chronic Conditions Patient?s care impacted by: Other Social Determinants Patient?s care significantly limited by Social Determinants of Health including: Low income and Other Social Determinant of Health Discharge Plan Discharge Clinical Impression: DVT (deep venous thrombosis) Patient Disposition: Home, Self-Care Instructions: Deep Vein Thrombosis (ED), Blood Thinners (ED) Additional Instructions: You have a blood clot in your gastrocnemius vein of her left calf. You need to start taking anticoagulation, a blood thinner, Eliquis IF YOU FALL, HIT YOUR HEAD, CUT HERSELF OPEN YOU ARE GOING TO BLEED, YOU NEED TO BE EVALUATED PLEASE STOP TAKING ALLOPURINOL UNTIL YOU SPEAK WITH YOUR DOCTOR NOW THAT YOU ARE ON A BLOOD THINNER Please call your doctor for close follow-up. You should also follow-up with Hematology. If you develop any shortness of breath, increasing swelling/pain to your leg, or area begins to look infected return to the emergency department Prescriptions: New Eliquis DVT-PE Treat 30D Start 5 mg (74 tabs) tablets,dose pack 5 mg PO BID Qty: 74 0RF No Action colchicine 0.6 mg capsule 0.6 mg PO DIRECTED 1 Days Qty: 3 0RF Rx Instructions: TAKE 2 TABS PO X 1 THEN 1 TAB PO 1 HOUR LATER. MAX 1.8MG acetaminophen [Tylenol Extra Strength] 500 mg tablet 500 mg PO Q6H PRN (Reason: fever or pain) Qty: 14 0RF cyclobenzaprine 10 mg tablet 10 mg PO TID PRN (Reason: muscle spasm) Qty: 14 0RF cholecalciferol (vitamin D3) 125 mcg (5,000 unit) tablet 125 mcg PO DAILY ibuprofen 800 mg tablet 800 mg PO Q8H allopurinol 100 mg tablet 100 mg PO DAILY Qty: 90 0RF Referrals: [facility] Oncology/Hematology [Provider Group] Farida Jorgensen FNP-CHELA [Primary Care Provider] - 3 days Stand Alone Forms: Work/School Release Interventions: ED Discharge Assessment Last Done: 07/05/24 17:37 Discharge Date/Time: 07/05/24 17:38 Print Language: Chinese
[2024-07-05 15:49] LABS: MANUAL DIFF FLAG NO
[2024-07-05 15:51] LABS: Basophils Absolute Auto 0.1 X10*3/uL (0.0-0.2); Basophils Percent Auto 0.6 % (0-2); Eosinophils Absolute Auto 0.3 X10*3/uL (0.0-0.4); Eosinophils Percent Auto 3.1 % (0-4); Hematocrit 43.2 % (42.0-52.0); Hemoglobin 14.6 g/dl (14.0-18.0); Imm Gran Abs Auto 0.02 X10*3/uL (0.00-0.03); Imm Gran Pct Auto 0.2 % (0.0-0.4); Lymphocytes Percent Auto 33.6 % (20-40); Mean Corpuscular HGB Conc 33.8 g/dl (31.0-36.0); Mean Corpuscular Hemoglobin 30.9 pg (27.0-33.0); Mean Corpuscular Volume 91.5 fL (80.0-98.0); Mean Platelet Volume 8.7 fL (9.4-12.4); Monocytes Absolute Auto 0.6 X10*3/uL (0.1-1.2); Monocytes Percent Auto 7.2 % (2-11); Neutrophils Percent Auto 55.3 % (45-73); Platelet Count 304 X10*3/uL (160-400); Red Blood Count 4.72 X10*6/uL (4.60-5.80); Red Cell Distribution Width 14.3 % (11.0-16.0); White Blood Count 8.9 X10*3/uL (4.8-10.8)
[2024-07-05 15:55] LABS: INTERNATIONAL NORM RATIO 0.9 (0.9-1.1); Prothrombin Time 10.9 SEC (10.9-12.4)
[2024-07-05 16:04] LABS: Alanine Aminotransferase 48 U/L (0-40); Albumin Level 4.2 g/dL (3.5-5.0); Alkaline Phosphatase 101 U/L (39-117); Anion Gap 11 (12-20); Aspartate Amino Transferase 26 U/L (5-37); Bilirubin Total 0.3 mg/dL (0.0-1.0); Blood Urea Nitrogen 15 mg/dL (9-16); Carbon Dioxide 26 mmol/L (22-29); Chloride 109 mmol/L (96-108); Creatinine Clr Calc Pharmacy 121.4; Estimated Glomerular Filt Rate > 60; Glucose Random 111 mg/dL (60-115); Magnesium 2.3 mg/dL (1.6-2.6); Potassium 4.2 mmol/L (3.3-5.1); Sodium 142 mmol/L (135-145); Total Protein 7.5 g/dL (6.5-8.0)
[2024-07-05 16:20] LABS: Partial Thromboplastin Time 27.9 SEC (26.0-36.8)
[2024-07-05 17:35] VITALS: BP 136/82; PULSE 66; RESP 18; TEMP 36.3; O2SAT 94
[2024-07-05 17:37] VITALS: BP 136/82; PULSE 66; RESP 18; TEMP 36.3; O2SAT 94
== END 2024-07-05 17:38 | disposition home or self-care (01) ==
PROVIDERS: Physician Assistant; Physician Assistant Medical; Emergency Provider Emergency Medicine Emergency Medical Services; PCP Nurse Practitioner Family
DX: I82.402 Acute embolism and thrombosis of unspecified deep veins of left lower extremity (principal); M79.89 Other specified soft tissue disorders; Z79.899 Other long term (current) drug therapy
CPT/HCPCS: 36415; 80053; 83735; 85025; 85610; 85730; 99283

== ENCOUNTER 2024-07-08 12:50 | Outpatient (AMB) | payer OTHER, SELFPAY ==
--- NOTE | 2024-07-08 12:53 | MHC.PC.OV ---
Vital Signs 07/08/24 13:01 Height 6 ft 2 in Weight 298 lb 2 oz BMI 38.3 BP 142/78 H Blood Pressure Location Rt brachial Position Sitting Respiration 15 Pulse 66 Pulse Source Pulse Oximeter Pulse Oximetry (%) 95 Oxygen Delivery Method Room Air Intake Visit Reasons: gout/foot issues and blood clot/ work letter Intake Note: patient complaining of left leg swollen, rash, tender to the touch, and blood clot on left leg x 3 days ago. patient has paperwork to fill out. Allergies oxycodone [From PERCOCET] Allergy (Intermediate, Verified 07/08/24 13:10) DIZZINESS Medication List - Last Reconciled 07/08/24 by Farida Jorgensen, BUSINESS ADMINISTRATION TEACHER-BC acetaminophen (Tylenol Extra Strength) 500 mg PO Q6H PRN apixaban (Eliquis DVT-PE Treat 30D Start) 5 mg PO BID apixaban (Eliquis) 5 mg PO BID cholecalciferol (vitamin D3) 125 mcg PO DAILY colchicine 0.6 mg PO DIRECTED 1 day cyclobenzaprine 10 mg PO TID PRN ibuprofen 800 mg PO Q8H Tobacco use date assessed: 01/06/24 Dental Screening Dental Screen Date: 01/06/24 HPI HPI Comments History of Present Illness Details 54-year-old male with BPPV, obesity, former tobacco use, current marijuana user, varicose veins, PVD, prediabetes , gout Status post fusion first MTP J left and hammertoe with K-wire fixation left 2nd toe 02/24/24 Dr Celis Here today for hospital discharge follow up. He was diagnosed with a DVT of his left lower extremity on 07/05. He went to [facility] for evaluation and treatment. The note was reviewed. New medication: Eliquis DVT-PE Treat 30D Start 5 mg (74 tabs) tablets,dose pack 5 mg PO BID Qty: 74 0RF Since this time he has been taking Eliquis as directed. He continues to have some swelling and pain. Unfortunately he is not able to get on this shoes he needs to work. The pain is also limiting him in his ability to stay on his feet for prolonged periods of time. 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 He denies any chest pain or shortness for breath. He needs [facility] paperwork completed for his job Exam awake alert NAD accompanied by RRR LS CTAB LLE + pedal pulses, postop changes noted to great toe, + 1 edema to foot, tenderness w palpation to medial aspect of ankle and calf, dry flaking skin noted to bottom of great toe, antalgic gait favoring R side Plan Two different FMLA forms were completed after the office visit. He will be on continuous leave from 07/05/2024 through 07 25 2024. He will return to the office on 07/22/2024 for an evaluation. Intermittent leave approved from 07/25/2024 through 07/25/2025 with 1 episode per week lasting 2 days per episode. Continue Eliquis at this time, he should continue to take for a total of 3 months. We will need repeat ultrasound imaging which has been ordered to be done in 6-8 weeks Hold allopurinol while on the Eliquis Monitor skin integrity No prolonged immobility Return to office in 2 weeks to follow up swelling and return to work This note is constructed using voice recognition software. While every effort has been made to ensure accuracy in manager retention, still errors may have been included Sometimes, these errors may affect the content or meaning of the given sentence . Total time spent caring for the patient today was 60 minutes. This includes time spent before the visit reviewing the chart, time spent during the visit, and time spent after the visit on documentation [facility] Medical History Subcutaneous mass Varicose veins of both lower extremities No active medical problems Surgical History No pertinent past surgical history Family History Mother Hypertension Cardiovascular disease Breast cancer Maternal Grandmother Hypertension High cholesterol Brother Diabetes Social History Household Members: Family Housing: House Are you a primary plant health care technician to a significant other at home: No Do you presently have visiting nurse or other home services: No 75 years or older and lives alone: No Alcohol intake: current Alcohol intake frequency: 0-2 drinks per day Alcohol type: beer Patient Tobacco Use Status: Former Tobacco user Tobacco use type: Cigarette Cigarette Packs Per Day: 1 e-Cigarette/Vaping Use: Never Used Second Hand Smoke Exposure: No Substance Use Type: Marijuana service: No Current occupational status: employed Current occupational exposures/hazards: No Sexual orientation: Straight/Heterosexual Gender identity: Male Cognitive needs: No Hearing needs: No Vision needs: No Questionnaire PHQ-9 Over the last 2 weeks, how often have you been bothered by any of the following problems? 69789 - PHQ-9 Billing: Patient declined-do not bill Source: Developed by Drs. Clifton Nguyễn, Kalli Juarez, Cecilio Hernandes and colleagues, with an educational ganesh from [employer]. Thrive Questionnaire Date Thrive assessed: 07/08/24 Currently or been in a relationship where the following occur: I choose not to answer THRIVE Score: 0 ALISON-7 AMB Questionnaire ALISON-7 Date ALISON - 7 assessed: 07/08/24 Source: Developed by Drs. Clifton Nguyễn, Kalli Juarez, Cecilio Hernandes and colleagues, with an educational ganesh from [employer]. ALISON-7 Assessment Billing ALISON-7 Assessment Tool: pt declined-do not bill Physical exam (Primary Care) Vital Signs: Last Vital Signs Pulse 66 07/08/24 13:01 Resp 15 07/08/24 13:01 BP 142/78 H 07/08/24 13:01 Pulse Ox 95 07/08/24 13:01 Oxygen Delivery Method Room Air 07/08/24 13:01 BMI result Body Mass Index 38.3 Tobacco/Smoking Status: Tobacco use Status Tobacco use date assessed 01/06/24 07/08/24 12:55 Patient Tobacco Use Status Former Tobacco user 07/08/24 12:55 Tobacco use type Cigarette 07/08/24 12:55 e-Cigarette/Vaping Use Never Used 07/08/24 12:55 Thrive Assessment: Date of Thrive Assessment Date Thrive assessed 07/08/24 07/08/24 12:55 Currently or been in a relationship where the following occur: I choose not to answer Coding Level of Care Code Est Pt Level 5 (10426) Complex EM visit Add On G2211 Diagnoses Acute deep vein thrombosis (DVT) of calf muscle vein of left lower extremity I82.462 Affected thrombotic vein of extremity: calf muscle vein Chronicity: acute Encounters for administrative purpose Z02.9 Swelling of lower extremity M79.89 Assessment & Plan Assessment & Plan (1) Left leg DVT: Code(s): I82.402 - Acute embolism and thrombosis of unspecified deep veins of left lower extremity Category: Medical Qualifiers: Affected thrombotic vein of extremity: calf muscle vein Chronicity: acute Qualified Code(s): I82.462 - Acute embolism and thrombosis of left calf muscular vein Plan: . (2) Encounters for administrative purpose: Code(s): Z02.9 - Encounter for administrative examinations, unspecified Category: Medical Plan: . (3) Swelling of lower extremity: Code(s): M79.89 - Other specified soft tissue disorders Category: Medical Plan: . Orders: Orders US venous duplex LE LT 08/15/24 I82.462 - Acute embolism and thrombosis of left calf muscular vein Medications: New apixaban (Eliquis) STOP Sep (3 months of treatment) 5 mg PO BID 60 tabs 0RF
[2024-07-08 13:01] VITALS: BP 142/78; PULSE 66; RESP 15; O2SAT 95; BMI 38.3
== END 2024-07-08 13:27 | disposition home or self-care (01) ==
PROVIDERS: PCP Nurse Practitioner Family; Visit Provider Nurse Practitioner Family
DX: I82.462 Acute embolism and thrombosis of left calf muscular vein (principal); M79.89 Other specified soft tissue disorders

== ENCOUNTER → 2024-07-08 12:50 | Outpatient (BNVA) | payer OTHER, SELFPAY | PROVIDERS: PCP Nurse Practitioner Family; Visit Provider Nurse Practitioner Family ==

== ENCOUNTER 2024-07-12 14:56 | Outpatient (AMB) | payer OTHER, SELFPAY ==
--- NOTE | 2024-07-12 14:58 | MHC.OFFVIS ---
Vital Signs 07/12/24 15:00 Height 6 ft 2 in Weight 295 lb 6.711 oz BMI 37.9 BP 118/74 Blood Pressure Location Rt brachial Position Sitting Pulse 68 Pulse Source Pulse Oximeter Pulse Oximetry (%) 95 Oxygen Delivery Method Room Air Intake Visit Reasons: Colonoscopy screening/ Epigastric pain Intake Note: Relevant Flags or Indicators ? Requires Loan Review Analyst? Daniella Bernal presents in office today for a scheduled colo consult per Age and Epigastric Pain. Pt denies any previous hx of colo or egd. CC; No med orders placed. Labs and diagnostics done within the last ~2 mos. Relevant GI Sx as reported per pt? Nausea ? Reflux - moderate to severe. ? Abdominal Pain o?? Upper B/L ? Hx of any recent surgeries? Pt reports having foot surgery 02/24/2024. ? Pertinent FMHx? Multiple sisters (breast cancer). Loan Review Analyst Required: No Accompanied by: Spouse Allergies oxycodone [From PERCOCET] Allergy (Intermediate, Verified 07/12/24 15:10) Dizziness HPI HPI Colonoscopy screening/ Epigastric pain: Details: 54 year old? male with past medical history of gout, left leg DVT, obesity is here today for pre colonoscopy screening.? Patient was sent to us by his PCP.? This is his first colonoscopy screening.? Patient denies any gastrointestinal symptoms in the past or at present.? Denies any personal or family history of gastrointestinal disease, colon polyps, or CRC.? Denies history of difficulty with sedation or anesthesia in the past.? Negative for history of sleep apnea.? Denies any history of cardiac, renal, pulmonary, or hepatic disease.?? No history of infectious? diseases like hepatitis A, B, C, HIV or tuberculosis.? Patient is not on any anticoagulation [facility] Medical History Gout Former heavy tobacco smoker Subcutaneous mass Varicose veins of both lower extremities No active medical problems Surgical History No pertinent past surgical history Family History Mother Hypertension Cardiovascular disease Breast cancer Maternal Grandmother Hypertension High cholesterol Brother Diabetes Social History Household Members: Family Housing: House Are you a primary child care attendant school to a significant other at home: No Do you presently have visiting nurse or other home services: No Alcohol intake: current Alcohol intake frequency: 0-2 drinks per day Alcohol type: beer Patient Tobacco Use Status: Former Tobacco user Tobacco use type: Cigarette Cigarette Packs Per Day: 1 e-Cigarette/Vaping Use: Never Used Second Hand Smoke Exposure: No Substance Use Type: Marijuana service: No Current occupational status: employed Current occupational exposures/hazards: No Sexual orientation: Straight/Heterosexual Gender identity: Male Cognitive needs: No Hearing needs: No Vision needs: No Review of Systems Const Denies weight gain and Denies weight loss ENT Reports no additional complaints, Denies dysphagia and Denies odynophagia Card Reports no additional complaints Resp Reports no additional complaints GI Reports abdominal pain (Epigastric and left upper quadrant), Denies belching, Denies melena, Reports bloating, Denies change in bowel habits, Reports constipation, Denies dysphagia, Denies excessive flatus, Denies dyspepsia, Reports heartburn, Denies diarrhea, Denies loose stools, Denies nausea, Denies odynophagia and Denies vomiting Reports no additional complaints Musc Reports no additional complaints Neuro Reports no additional complaints Psych Reports no additional complaints Endo Reports no additional complaints Physical Exam Vital Signs: Last Vital Signs Pulse 68 07/12/24 15:00 BP 118/74 07/12/24 15:00 Pulse Ox 95 07/12/24 15:00 Oxygen Delivery Method Room Air 07/12/24 15:00 BMI result Body Mass Index 37.9 Const General: healthy appearing and no acute distress Nutritional Appearance: obese Orientation/consciousness: patient oriented x3 Cardio Rate: regular rate GI Inspection: Yes normal to inspection, No distended and Yes obesity Palpation (GI): Soft to palpation, not firm, nontender and No hepatosplenomegaly present Auscultation: normal bowel sounds General: Yes no CVA tenderness Back/Spine/Pelvis Back: no CVA tenderness Skin General skin exam: elasticity normal, turgor normal and dry skin Neuro General: patient oriented x3 Psych Appearance: grossly normal Mental Status: mental status grossly normal Assessment & Plan Assessment & Plan (1) Screen for colon cancer: Code(s): Z12.11 - Encounter for screening for malignant neoplasm of colon Category: Medical (2) GERD (gastroesophageal reflux disease): Code(s): K21.9 - Gastro-esophageal reflux disease without esophagitis Qualifiers: Esophagitis presence: esophagitis presence not specified Qualified Code(s): K21.9 - Gastro-esophageal reflux disease without esophagitis (3) Postprandial epigastric pain: Code(s): R10.13 - Epigastric pain (4) Constipation: Code(s): K59.00 - Constipation, unspecified Qualifiers: Constipation type: slow transit constipation Qualified Code(s): K59.01 - Slow transit constipation (5) Postprandial abdominal bloating: Code(s): R14.0 - Abdominal distension (gaseous) (6) Epigastric pain: Code(s): R10.13 - Epigastric pain Category: Medical (7) Abdominal pain, LUQ (left upper quadrant): Code(s): R10.12 - Left upper quadrant pain Plan Patient denies any cardiac or respiratory symptoms. However patient does reports to have epigastric pain postprandially, occasional left upper quadrant pain, abdominal bloating postprandially. Patient also reports that he does not move his bowels daily. After bowel movements patient has feeling like he did not finish going to the bathroom. Denies any nausea or vomiting. Denies melena, hematochezia, unintentional weight loss or ribbon like stools. Will send him for blood work, check vitamin-D B12, transglutaminase and lipase. Will start him on pantoprazole in the morning and famotidine in the evening. Patient was encouraged to avoid dietary triggers and late night snacking. Staying upright for minimum 3 hours after meals discussed with patient. Script for famotidine given to patient and he can take it on as needed basis. Patient will take Dulcolax daily.? Denies any issues with anesthesia in the past.? Denies any history of sleep apnea.? No history of infectious diseases in the past or present.? Patient is currently on Eliquis about week or so for left lower extremity DVT. Patient will have ultrasound repeated in the beginning of August to determine if he can stop Eliquis.? No family or personal history of colon cancer or polyps.? Patient denies melena, hematochezia, unintentional weight loss or ribbon like stools.? Discussed at length the pre-procedure,? prep, diet & medications as well as what to expect prior, during and after the procedure.?? Stressed the importance of good bowel prep.? Recommended the use of Vaseline or Calmoseptine OTC & baby wipes with bowel movements to promote comfort.? ?Patient verbalizes understanding and agrees to plan of care.? He was given the opportunity to ask questions and all questions answered.? We will see him after the procedure.? Orders: Orders Vitamin D 25-OH (D2 and D3) 07/12/24 E55.9 - Vitamin D deficiency, unspecified Vitamin B12 and Folate 07/12/24 R19.7 - Diarrhea, unspecified Lipase 07/12/24 R10.9 - Unspecified abdominal pain Transglutaminase IgA 07/12/24 R10.9 - Unspecified abdominal pain Medications: New pantoprazole take one tablet half an hour before breakfast 40 mg PO DAILY 30 tabs 2RF K21.9 - Gastro-esophageal reflux disease without esophagitis bisacodyl (Dulcolax (bisacodyl)) 10 mg (2 x 5 mg) PO BEDTIME 60 tabs 0RF famotidine (Pepcid) 20 mg PO BEDTIME 30 tabs 3RF K21.9 - Gastro-esophageal reflux disease without esophagitis polyethylene glycol 3350 (Miralax) As directed by gastroenterology department at [facility] 238 grams PO ONCE 238 grams 0RF Z12.11 - Encounter for screening for malignant neoplasm of colon Coding Level of Care Code New Pt Level 4 (22684) Diagnoses Screen for colon cancer Z12.11 Gastroesophageal reflux disease, unspecified whether esophagitis present K21.9 Esophagitis presence: esophagitis presence not specified Postprandial epigastric pain R10.13 Slow transit constipation K59.01 Constipation type: slow transit constipation Postprandial abdominal bloating R14.0 Epigastric pain R10.13 Abdominal pain, LUQ (left upper quadrant) R10.12 Time Spent (min) 45 Comment 30 minutes spent with patient and additional 15 minutes spent reviewing his records
[2024-07-12 15:00] VITALS: BP 118/74; PULSE 68; O2SAT 95; BMI 37.9
== END 2024-07-12 16:00 | disposition home or self-care (01) ==
LOC: HO.HGI 14:57
PROVIDERS: PCP Nurse Practitioner Family; Visit Provider Nurse Practitioner Family
DX: K21.9 Gastro-esophageal reflux disease without esophagitis (principal); Z12.11 Encounter for screening for malignant neoplasm of colon; K59.01 Slow transit constipation
CPT/HCPCS: 99204

== ENCOUNTER → 2024-07-12 14:56 | Outpatient (BNVA) | payer OTHER, SELFPAY | PROVIDERS: PCP Nurse Practitioner Family; Visit Provider Nurse Practitioner Family ==

== ENCOUNTER 2024-07-22 08:55 | Outpatient (AMB) | payer OTHER, SELFPAY ==
--- NOTE | 2024-07-22 08:56 | MHC.PC.OV ---
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: No Allergies oxycodone [From PERCOCET] Allergy (Intermediate, Verified 07/22/24 09:18) Dizziness Medication List - Last Reconciled 07/22/24 by Farida Jorgensen, PEG DRIVER- acetaminophen (Tylenol Extra Strength) 500 mg PO Q6H PRN apixaban (Eliquis) 5 mg PO BID bisacodyl (Dulcolax (bisacodyl)) 10 mg (2 x 5 mg) PO BEDTIME cholecalciferol (vitamin D3) 125 mcg PO DAILY colchicine 0.6 mg PO DIRECTED 1 day cyclobenzaprine 10 mg PO TID PRN famotidine (Pepcid) 20 mg PO BEDTIME ibuprofen 800 mg PO Q8H pantoprazole 40 mg PO DAILY polyethylene glycol 3350 (Miralax) 238 grams PO ONCE Tobacco use date assessed: 01/06/24 Dental Screening Dental Screen Date: 01/06/24 HPI HPI Comments History of Present Illness Details 54-year-old male BPPV, obesity, former tobacco use, current marijuana user, varicose veins, PVD, prediabetes , hyperlipidemia, Incomplete right bundle branch block, gout, provoked DVT LLE 07/05/24 Here today for 2 week f/u of DVT LLE Cont to have pain, swelling and tenderness Has repeat US 08/15/24. Taking eliquis as directed. Still cannot get foot into work shoe d/t edema and pain. Next fu with Dr Celis Sep 2023 Saw GI, placed on new meds, will be having first colon. Exam awake alert NAD accompanied by RRR LS CTAB LLE + pedal pulses, postop changes noted to great toe, improved but cont edema to foot trace to +1, tenderness w palpation to medial aspect of ankle and calf, antalgic gait favoring R side Plan As not able to wear a shoe required for work still, will extend cont leave from 07/22-08/08/24. He will return the week of 08/01/24 for re-eval. With a goal of return to work with intermittent leave. Cont Eliquis, get repeat US done as scheduled. Warm moist comps to LLE, elevate, avoid prolonged immobility. Hold allopurinol while on the Eliquis Monitor skin integrity RTO week of 08/01/24 to re-eval with goal of RTW He will be on continuous leave from 07/05/2024 through 08/08/24. Intermittent leave approved from 07/25/2024 through 07/25/2025 with 1 episode per week lasting 2 days per episode. This note is constructed using voice recognition software. While every effort has been made to ensure accuracy in reactor fueling supervisor, still errors may have been included Sometimes, these errors may affect the content or meaning of the given sentence . Total time spent caring for the patient today was 30 minutes. This includes time spent before the visit reviewing the chart, time spent during the visit, and time spent after the visit on documentation [facility] Medical History Gout Former heavy tobacco smoker Subcutaneous mass Varicose veins of both lower extremities No active medical problems Surgical History No pertinent past surgical history Family History Mother Hypertension Cardiovascular disease Breast cancer Maternal Grandmother Hypertension High cholesterol Brother Diabetes Social History Household Members: Family Housing: House Are you a primary rental boats caretaker to a significant other at home: No Do you presently have visiting nurse or other home services: No 75 years or older and lives alone: No Alcohol intake: current Alcohol intake frequency: 0-2 drinks per day Alcohol type: beer Patient Tobacco Use Status: Former Tobacco user Tobacco use type: Cigarette Cigarette Packs Per Day: 1 e-Cigarette/Vaping Use: Never Used Second Hand Smoke Exposure: No Substance Use Type: Marijuana service: No Current occupational status: employed Current occupational exposures/hazards: No Sexual orientation: Straight/Heterosexual Gender identity: Male Cognitive needs: No Hearing needs: No Vision needs: No Questionnaire PHQ-9 Over the last 2 weeks, how often have you been bothered by any of the following problems? 1. Little interest or pleasure in doing things: not at all 2. Feeling down, depressed, or hopeless: not at all 3. Trouble falling or staying asleep, or sleeping too much: several days 4. Feeling tired or having little energy: more than half the days 5. Poor appetite or overeating: not at all 6. Feeling bad about yourself - or that you are a failure or have let yourself or your family down: not at all 7. Trouble concentrating on things, such as reading the newspaper or watching television: not at all 8. Moving or speaking so slowly that other people could have noticed. Or the opposite - being so fidgety or restless that you have been moving around a lot more than usual: not at all 9. Thoughts that you would be better off or of hurting yourself in some way: not at all Total score: 3 09000 - PHQ-9 Billing: Yes Source: Developed by Drs. Clifton Nguyễn, Kalli Juarez, Cecilio Hernandes and colleagues, with an educational ganesh from [employer]. Thrive Questionnaire Date Thrive assessed: 07/22/24 I am a: Patient What is your living situation today?: I have a steady place to live Within the past 12 months, did the food you bought not last and you didn't have the money to get more?: Never true Within the past 12 months, did you worry whether your food would run out before you got money to buy more?: Never true Do you have trouble paying for medicines?: No Do you have trouble getting transportation to medical appointments?: No Do you have trouble paying your heating and electricity bill?: No Do you have trouble taking care of your child, family member or friend?: No Do you have trouble with day-to-day activities such as bathing, preparing meals, shopping, managing finances, etc.?: No Are you currently unemployed and looking for a job?: No Are you interested in more education?: No Please select the resources that you would like help with: None Currently or been in a relationship where the following occur: No concerns reported THRIVE Score: 0 AUDIT C Alcohol Use Questionnaire (AUDIT-C) 1. How often do you have a drink containing alcohol?: Never Total Score: 0 ALISON-7 AMB Questionnaire ALISON-7 Date ALISON - 7 assessed: 07/22/24 Feeling nervous, anxious, or on edge: 0 = Not at all Not being able to stop or control worryin = Not at all Worrying too much about different things: 0 = Not at all Trouble relaxin = Not at all Being so restless that it is hard to sit still: 0 = Not at all Becoming easily annoyed or irritable: 0 = Not at all Feeling afraid as if something awful might happen: 0 = Not at all Total ALISON-7 score (0-4 normal; 5-9 mild; 10-14 moderate; 15-21 severe): 0 Source: Developed by Drs. Clifton Nguyễn, Kalli Juarez, Cecilio Hernandes and colleagues, with an educational ganesh from [employer]. ALISON-7 Assessment Billing ALISON-7 Assessment Tool: ALISON-7 Assessment 09746 Physical exam (Primary Care) Vital Signs: Last Vital Signs Pulse 70 07/22/24 09:02 Resp 14 07/22/24 09:02 BP 135/66 07/22/24 09:02 Pulse Ox 95 07/22/24 09:02 Oxygen Delivery Method Room Air 07/22/24 09:02 BMI result Body Mass Index 38.1 Tobacco/Smoking Status: Tobacco use Status Tobacco use date assessed 01/06/24 07/22/24 09:05 Patient Tobacco Use Status Former Tobacco user 07/22/24 09:05 Tobacco use type Cigarette 07/22/24 09:05 e-Cigarette/Vaping Use Never Used 07/22/24 09:05 PHQ-9: PHQ-9 Score PHQ-9: Total score 3 07/22/24 09:18 Thrive Assessment: Date of Thrive Assessment Date Thrive assessed 07/22/24 07/22/24 09:05 Currently or been in a relationship where the following occur: No concerns reported Coding Level of Care Code Est Pt Level 4 (60428) Complex EM visit Add On G2211 Diagnoses Acute deep vein thrombosis (DVT) of calf muscle vein of left lower extremity I82.462 Affected thrombotic vein of extremity: calf muscle vein Chronicity: acute Swelling of lower extremity M79.89 Encounters for administrative purpose Z02.9 Additional Codes ALISON-7 Assessment Billing - ALISON-7 Assessment Tool: ALISON-7 Assessment 75762 ([id number]) PHQ-9 - 84545 - PHQ-9 Billing: Yes ([id number]) Assessment & Plan Assessment & Plan (1) Left leg DVT: Code(s): I82.402 - Acute embolism and thrombosis of unspecified deep veins of left lower extremity Category: Medical Qualifiers: Affected thrombotic vein of extremity: calf muscle vein Chronicity: acute Qualified Code(s): I82.462 - Acute embolism and thrombosis of left calf muscular vein Plan: . (2) Swelling of lower extremity: Code(s): M79.89 - Other specified soft tissue disorders Category: Medical Plan: . (3) Encounters for administrative purpose: Code(s): Z02.9 - Encounter for administrative examinations, unspecified Category: Medical Plan: .
[2024-07-22 09:02] VITALS: BP 135/66; PULSE 70; RESP 14; O2SAT 95; BMI 38.1
== END 2024-07-22 09:32 | disposition home or self-care (01) ==
PROVIDERS: PCP Nurse Practitioner Family; Visit Provider Nurse Practitioner Family
DX: I82.462 Acute embolism and thrombosis of left calf muscular vein (principal); M79.89 Other specified soft tissue disorders

== ENCOUNTER → 2024-07-22 08:55 | Outpatient (BNVA) | payer OTHER, SELFPAY | PROVIDERS: PCP Nurse Practitioner Family; Visit Provider Nurse Practitioner Family | DX: I82.462 Acute embolism and thrombosis of left calf muscular vein (principal); M79.89 Other specified soft tissue disorders; Z79.01 Long term (current) use of anticoagulants | CPT/HCPCS: 96127 ==

== ENCOUNTER 2024-08-05 09:00 | Outpatient (AMB) | payer OTHER, SELFPAY ==
--- NOTE | 2024-08-05 09:19 | A.OFFPC_ITS ---
Vital Signs 3 08/05/24 09:20 Weight 297 lb BP 124/66 Blood Pressure Location Lt brachial Position Sitting Pulse 77 Pulse Source Pulse Oximeter Pulse Oximetry (%) 97 Oxygen Delivery Method Room Air Intake Visit Reasons: fu LLE DVT RTW Allergies oxycodone [From PERCOCET] Allergy (Intermediate, Verified 08/05/24 09:20) Dizziness Medication List - Last Reconciled 08/05/24 by Farida Jorgensen, ELECTROPHYSIOLOGY SCIENTIST- acetaminophen (Tylenol Extra Strength) 500 mg PO Q6H PRN apixaban (Eliquis) 5 mg PO BID bisacodyl (Dulcolax (bisacodyl)) 10 mg (2 x 5 mg) PO BEDTIME cholecalciferol (vitamin D3) 125 mcg PO DAILY colchicine 0.6 mg PO DIRECTED 1 day cyclobenzaprine 10 mg PO TID PRN famotidine (Pepcid) 20 mg PO BEDTIME pantoprazole 40 mg PO DAILY polyethylene glycol 3350 (Miralax) 238 grams PO ONCE Tobacco use date assessed: 01/06/24 Dental Screening Dental Screen Date: 01/06/24 HPI HPI Comments 2 History of Present Illness0 Details 54-year-old male BPPV, obesity, former t obacco use, current marijuana user, varicose veins, PVD, prediabetes , hyperlipidemia, Incomplete right bundle branch block, gout, provoked DVT LLE 07/05/24 Presenting with concerns regarding persistent lower extremity swelling and the ability to return to work. The patient has a history of Deep Vein Thrombosis (DVT) in the left lower extremity with associated swelling and tenderness, initially noted during a visit on July 22, when a repeat ultrasound was scheduled for August 15. He experiences ongoing peripheral edema that previously interfered with his ability to wear work shoes. Despite improvements in swelling, the patient reports having used all Family and Medical Leave Act (FMLA) benefits and feels pressured to return to work. The patient is taking Eliquis as prescribed and has reported some decrease in swelling. 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 - Reports financial stress and the need to maintain income, expressing concerns about the inability to secure more FMLA leave. Review of Systems - Cardiovascular: Reports no chest pain. - Respiratory: Denies shortness of breat h. - Dermatologic: No current skin rashes o r irritation. Exam: awake alert NAD accompanied by RRR LS CTAB LLE + pedal pulses, postop changes noted to great toe, improved but cont edema to foot, no more tenderness w palpation to medial aspect of ankle and calf, mildly antalgic gait favoring R side -- see picture below. Results - Scheduled ultrasound of the left lower extremity on August 15. Plan - For Deep Vein Thrombosis DVT): Continu e anticoagulation therapy with Eliquis as currently prescribed. Await the results of the ultrasound scheduled for August 15 to assess the current status of the DVT. - For Peripheral Edema: Advise the patie nt to utilize [id number] Lambswool to mitigate irritation from shoe wear. Emphasize proper footwear that accommodates the swelling. Discuss the possibility of a wider, more forgiving shoe for work. He will be on continuous leave from 07/05/2024 through 08/08/24. Intermittent leave approved from 08/08/2024 through 07/25/2025 with 1 episode per week lasting 2 days per episode. Patient was informed and verbally consented to the use of an ambient scribe for clinic note documentation during this visit. Discussion Notes During the visit, we discussed the patient?s current health condition and its impact on his ability to work. I reiterated the importance of wearing the right shoes and managing edema while considering financial implications. We reviewed the scheduled follow-up ultrasound for August 15 to evaluate progress. We also explored the potential of short-term disability as an alternative to managing employment and health priorities. The patient expressed financial concerns and difficulties, and we discussed possible accommodations at work. Patient Instructions - Continue taking Eliquis as directed. - Attend the scheduled ultrasound on Aug. - Apply Lambswool to the left foot to pr event irritation from footwear. - Explore obtaining appropriately fittin g work shoes. - Follow up with employer regarding pote ntial short-term disability options if unable to manage with current restrictions. RTW 08/08/24 as long as can wear work shoes note provided. Cont Intermittent leave approved from 08/08/2024 through 07/25/2025 with 1 episode per week lasting 2 days per episode. - Schedule a follow-up in four to six we eks to reassess swelling and function, sooner PRN This note is constructed using voice recognition software. While every effort has been made to ensure accuracy in fishing lure assembler, still errors may have been included Sometimes, these errors may affect the content or meaning of the given sentence . Total time spent caring for the patient today was 30 minutes. This includes time spent before the visit reviewing the chart, time spent during the visit, and time spent after the visit on documentation [facility] Medical History Gout Former heavy tobacco smoker Subcutaneous mass Varicose veins of both lower extremities No active medical problems Surgical History No pertinent past surgical history Family History Mother Hypertension Cardiovascular disease Breast cancer Maternal Grandmother Hypertension High cholesterol Brother Diabetes Social History Household Members: Family Housing: House Are you a primary health careers instructor to a significant other at home: No Do you presently have visiting nurse or other home services: No 75 years or older and lives alone: No Alcohol intake: current Alcohol intake frequency: 0-2 drinks per day Alcohol type: beer Patient Tobacco Use Status: Former Tobacco user Tobacco use type: Cigarette Cigarette Packs Per Day: 1 e-Cigarette/Vaping Use: Never Used Second Hand Smoke Exposure: No Substance Use Type: Marijuana service: No Current occupational status: employed Current occupational exposures/hazards: No Sexual orientation: Straight/Heterosexual Gender identity: Male Cognitive needs: No Hearing needs: No Vision needs: No Questionnaire Thrive Questionnaire Date Thrive assessed: 07/22/24 I am a: Patient What is your living situation today?: I have a steady place to live Within the past 12 months, did the food you bought not last and you didn't have the money to get more?: Never true Within the past 12 months, did you worry whether your food would run out before you got money to buy more?: Never true Do you have trouble paying for medicines?: No Do you have trouble getting transportation to medical appointments?: No Do you have trouble paying your heating and electricity bill?: No Do you have trouble taking care of your child, family member or friend?: No Do you have trouble with day-to-day activities such as bathing, preparing meals, shopping, managing finances, etc.?: No Are you currently unemployed and looking for a job?: No Are you interested in more education?: No Please select the resources that you would like help with: None Currently or been in a relationship where the following occur: No concerns reported THRIVE Score: 0 ALISON-7 AMB Questionnaire ALISON-7 Date ALISON - 7 assessed: 07/22/24 Source: Developed by Drs. Clifton Nguyễn, Kalli Juarez, Cecilio Hernandes and colleagues, with an educational ganesh from [employer]. Physical exam (Primary Care) Vital Signs: Last Vital Signs Pulse 77 08/05/24 09:20 BP 124/66 08/05/24 09:20 Pulse Ox 97 08/05/24 09:20 Oxygen Delivery Method Room Air 08/05/24 09:20 Tobacco/Smoking Status: Tobacco use Status Tobacco use date assessed 01/06/24 08/05/24 09:20 Patient Tobacco Use Status Former Tobacco user 08/05/24 09:20 Tobacco use type Cigarette 08/05/24 09:20 e-Cigarette/Vaping Use Never Used 08/05/24 09:20 Thrive Assessment: Date of Thrive Assessment Date Thrive assessed 07/22/24 08/05/24 09:20 Currently or been in a relationship where the following occur: No concerns reported Coding Level of Care Code Est Pt Level 4 (08855) Complex EM visit Add On G2211 Diagnoses Acute deep vein thrombosis (DVT) of calf muscle vein of left lower extremity I82.462 Affected thrombotic vein of extremity: calf muscle vein Chronicity: acute Swelling of lower extremity M79.89 Encounters for administrative purpose Z02.9 Assessment & Plan Assessment & Plan (1) Left leg DVT: Code(s): I82.402 - Acute embolism and thrombosis of unspecified deep veins of left lower extremity Category: Medical Qualifiers: Affected thrombotic vein of extremity: calf muscle vein Chronicity: a cute Qualified Code(s): I82.462 - Acute embolism and thrombosis of left calf muscular vein (2) Swelling of lower extremity: Code(s): M79.89 - Other specified soft tissue disorders Category: Medical (3) Encounters for administrative purpose: Code(s): Z02.9 - Encounter for administrative examinations, unspecified Category: Medical Plan .
[2024-08-05 09:20] VITALS: BP 124/66; PULSE 77; O2SAT 97
== END 2024-08-05 09:40 | disposition home or self-care (01) ==
PROVIDERS: PCP Nurse Practitioner Family; Visit Provider Nurse Practitioner Family
DX: I82.462 Acute embolism and thrombosis of left calf muscular vein (principal); M79.89 Other specified soft tissue disorders

== ENCOUNTER 2024-08-08 10:43 | Outpatient (AMB) | payer OTHER, SELFPAY ==
--- NOTE | 2024-08-08 10:55 | A.OFFPC_ITS ---
Vital Signs 3 08/08/24 11:03 Height 6 ft 2 in Weight 298 lb BMI 38.3 BP 127/64 Blood Pressure Location Rt brachial Position Sitting Respiration 16 Pulse 71 Pulse Source Pulse Oximeter Temp 97.2 F Temp Source Temporal Artery Scan Pulse Oximetry (%) 95 Oxygen Delivery Method Room Air Intake Visit Reasons: est/ swollen foot Intake Note: patient here c/o swollen foot Automotive Specialty Technician Required: No Accompanied by: Spouse Allergies oxycodone [From PERCOCET] Allergy (Intermediate, Verified 08/08/24 11:28) Dizziness Medication List - Last Reconciled 08/08/24 by Farida Jorgensen, [employer] MEMBER- acetaminophen (Tylenol Extra Strength) 500 mg PO Q6H PRN apixaban (Eliquis) 5 mg PO BID bisacodyl (Dulcolax (bisacodyl)) 10 mg (2 x 5 mg) PO BEDTIME colchicine 0.6 mg PO DIRECTED 1 day cyclobenzaprine 10 mg PO TID PRN famotidine (Pepcid) 20 mg PO BEDTIME pantoprazole 40 mg PO DAILY polyethylene glycol 3350 (Miralax) 238 grams PO ONCE Tobacco use date assessed: 08/08/24 Dental Screening Dental Screen Date: 08/08/24 Did you have a dental visit in the last 12 months?: No Did you have a dental problem in the last 6 months where you did not have access to dental care?: No Was dental information given to patient?: Patient has dentist HPI HPI Comments 2 History of Present Illness0 Details The patient is a 54-year-old male presenting with persistent swelling in his L foot, attributed to a Deep Venous Thrombosis (DVT). 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 The swelling began after the patient underwent surgery on the affected foot, which corrected a previous fracture caused by wear and tear from his professional duties. Despite having a wide size steel-toed boot to accommodate post-operative changes, the swelling exacerbates the pain during prolonged periods of ambulation, such as his 8-hour work shifts on cement surfaces. The swelling persists with a notable limp and secondary complications due to the protracted history of the foot injury, which encompasses a previous fracture sustained on the job and longstanding gait abnormalities. Continuous usage of anticoagulant medication is crucial to mitigate the risk of further clotting, however, this does not address the immediate employment-related constraints the patient faces. The patient reported attempts to alleviate the condition through heating and other non-specified modalities; however, the swelling and pain persist. 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 - Experiencing potential financial insta bility due to work absences related to medical condition. - Di, significantly concerned a bout financial responsibilities and employment status. - Considering various employment leave o ptions, including leave of absence without pay. Physical Exam Plan - Continue current anticoagulation thera py. - Consult with occupational health for p otential workplace accommodations. - Schedule an ultrasound on August 15 to assess the current status of the DVT. - Follow-up regarding results of the ult rasound to decide on further management based on clot resolution. - Discuss options for short-term disabil ity or leave of absence without pay with the patient's employer to maintain employment status without financial compensation until the patient can safely return to work. A business card for Teresa Romo was provided to me at the time of visit. she is listed as a operations trainer. I called her to speak to her about this case. Call went to voice mail. Detailed message left. I also sent a SECURE email w/ my requests and have not yet heard back. I will f/u once I hear back from her. Patient was informed and verbally consented to the use of an ambient scribe for clinic note documentation during this visit. Discussion Notes During today's visit, we addressed the significant impact of the patient's DVT on his ability to fulfill job requirements, due to persistent foot swelling and pain. We discussed the potential workplace adjustments and leave options offered by his employer. I provided clarification of different employment leave classifications, including FMLA, short-term disability, and leave of absence without pay. The patient was counseled on the critical nature of completing the anticoagulation therapy to reduce the risk of thromboembolic events. I advised him on the potential prognosis following completion of the therapy and arranged for follow-up imaging with an ultrasound to assess the status of the DVT. His concerns about financial security and job retention were addressed, and I noted the relevance of engaging with occupational health to facilitate any possible adjustments or accommodations. RTO as scheduled. Total time spent caring for the patient today was 45 minutes. This includes time spent before the visit reviewing the chart, time spent during the visit, and time spent after the visit on documentation [facility] Medical History Gout Former heavy tobacco smoker Subcutaneous mass Varicose veins of both lower extremities No active medical problems Surgical History No pertinent past surgical history Family History Mother Hypertension Cardiovascular disease Breast cancer Maternal Grandmother Hypertension High cholesterol Brother Diabetes Social History Household Members: Family Housing: House Are you a primary medicare interviewer to a significant other at home: No Do you presently have visiting nurse or other home services: No 75 years or older and lives alone: No Alcohol intake: current Alcohol intake frequency: 0-2 drinks per day Alcohol type: beer Patient Tobacco Use Status: Former Tobacco user Tobacco use type: Cigarette Cigarette Packs Per Day: 1 e-Cigarette/Vaping Use: Never Used Second Hand Smoke Exposure: No Substance Use Type: Marijuana service: No Current occupational status: employed Current occupational exposures/hazards: No Sexual orientation: Straight/Heterosexual Gender identity: Male Cognitive needs: No Hearing needs: No Vision needs: No Questionnaire Thrive Questionnaire Date Thrive assessed: 07/22/24 ALISON-7 AMB Questionnaire ALISON-7 Date ALISON - 7 assessed: 07/22/24 Source: Developed by Drs. Clifton Nguyễn, Kalli Juarez, Cecilio Hernandes and colleagues, with an educational ganesh from [employer]. Physical exam (Primary Care) Vital Signs: Last Vital Signs Temp 97.2 F 08/08/24 11:03 Pulse 71 08/08/24 11:03 Resp 16 08/08/24 11:03 BP 127/64 08/08/24 11:03 Pulse Ox 95 08/08/24 11:03 Oxygen Delivery Method Room Air 08/08/24 11:03 BMI result Body Mass Index 38.3 Tobacco/Smoking Status: Tobacco use Status Tobacco use date assessed 08/08/24 08/08/24 11:07 Patient Tobacco Use Status Former Tobacco user 08/08/24 11:07 Tobacco use type Cigarette 08/08/24 11:07 e-Cigarette/Vaping Use Never Used 08/08/24 11:07 Thrive Assessment: Date of Thrive Assessment Date Thrive assessed 07/22/24 08/08/24 11:07 Coding Level of Care Code Est Pt Level 5 (42583) Complex EM visit Add On G2211 Diagnoses Acute deep vein thrombosis (DVT) of calf muscle vein of left lower extremity I82.462 Affected thrombotic vein of extremity: calf muscle vein Chronicity: acute Swelling of lower extremity M79.89 Assessment & Plan Assessment & Plan (1) Left leg DVT: Code(s): I82.402 - Acute embolism and thrombosis of unspecified deep veins of left lower extremity Category: Medical Qualifiers: Affected thrombotic vein of extremity: calf muscle vein Chronicity: a cute Qualified Code(s): I82.462 - Acute embolism and thrombosis of left calf muscular vein (2) Swelling of lower extremity: Code(s): M79.89 - Other specified soft tissue disorders Category: Medical Plan .
[2024-08-08 11:03] VITALS: BP 127/64; PULSE 71; RESP 16; TEMP 36.2; O2SAT 95; BMI 38.3
== END 2024-08-08 11:39 | disposition home or self-care (01) ==
LOC: HO.HMCWIW 10:43
PROVIDERS: PCP Nurse Practitioner Family; Visit Provider Nurse Practitioner Family
DX: I82.462 Acute embolism and thrombosis of left calf muscular vein (principal); M79.89 Other specified soft tissue disorders

== ENCOUNTER 2024-08-15 16:16 | Outpatient (REF) | payer OTHER, SELFPAY | END 2024-08-15 16:17 | disposition home or self-care (01) | LOC: HO.US 16:16 | PROVIDERS: PCP Nurse Practitioner Family; Visit Provider Nurse Practitioner Family | DX: I82.462 Acute embolism and thrombosis of left calf muscular vein (principal) | CPT/HCPCS: 93971 ==

== ENCOUNTER → 2024-08-15 16:18 | Outpatient (BNV) | payer OTHER, SELFPAY | PROVIDERS: PCP Nurse Practitioner Family; Visit Provider Radiology Diagnostic Radiology | DX: Z86.718 Personal history of other venous thrombosis and embolism (principal) | CPT/HCPCS: 93971 ==

== ENCOUNTER 2024-08-19 09:06 | Outpatient (AMB) | payer OTHER, SELFPAY ==
--- NOTE | 2024-08-19 09:07 | A.OFFPC_ITS ---
Vital Signs 3 08/19/24 09:12 Height 6 ft 2 in Weight 300 lb BMI 38.5 BP 132/78 Blood Pressure Location Rt brachial Position Sitting Respiration 14 Pulse 73 Pulse Source Pulse Oximeter Pulse Oximetry (%) 97 Oxygen Delivery Method Room Air Intake Visit Reasons: Swollen foot Paperwork Intake Note: follow up on foot and needs paperwork Appliance Counselor Required: No Allergies oxycodone [From PERCOCET] Allergy (Intermediate, Verified 08/19/24 09:29) Dizziness Medication List - Last Reconciled 08/19/24 by SY Alba- acetaminophen (Tylenol Extra Strength) 500 mg PO Q6H PRN apixaban (Eliquis) 5 mg PO BID bisacodyl (Dulcolax (bisacodyl)) 10 mg (2 x 5 mg) PO BEDTIME colchicine 0.6 mg PO DIRECTED 1 day cyclobenzaprine 10 mg PO TID PRN famotidine (Pepcid) 20 mg PO BEDTIME pantoprazole 40 mg PO DAILY polyethylene glycol 3350 (Miralax) 238 grams PO ONCE Tobacco use date assessed: 08/08/24 Dental Screening Dental Screen Date: 08/08/24 HPI HPI Comments 2 History of Present Illness0 Details 54-year-old male BPPV, obesity, former t obacco use, current marijuana user, varicose veins, PVD, prediabetes , hyperlipidemia, Incomplete right bundle branch block, gout, provoked DVT LLE 07/05/24 Here today for follow up of DVT left lower extremity. Ultrasound performed 08/15/2024 shows complete resolution. He continues on Eliquis. His edema is improved. He would like to proceed with returned to work. Feels able to put the foot and in appropriate work shoe. Made him aware i did not hear back from his Employer HR contact Teresa Email and phone call done. Review of Systems - Cardiovascular: Reports no chest pain. - Respiratory: Denies shortness of breat h. - Dermatologic: No current skin rashes o r irritation. Exam: awake alert NAD accompanied by RRR LS CTAB LLE + pedal pulses, postop changes noted to great toe, improved edema to foot, no more tenderness w palpation to medial Plan Continue Eliquis until October 06, compression stockings, continue to use wide toe shoes, elevate foot when able, ice, labs will to prevent friction or shear Note given to return to work on 08/22/2024. He will continue with intermittent FMLA through July of 2025 Return to office in September as scheduled, sooner as needed This note is constructed using voice recognition software. While every effort has been made to ensure accuracy in pulling machine operator, still errors may have been included Sometimes, these errors may affect the content or meaning of the given sentence . Total time spent caring for the patient today was 30 minutes. This includes time spent before the visit reviewing the chart, time spent during the visit, and time spent after the visit on documentation [facility] Medical History Gout Former heavy tobacco smoker Subcutaneous mass Varicose veins of both lower extremities No active medical problems Surgical History No pertinent past surgical history Family History Mother Hypertension Cardiovascular disease Breast cancer Maternal Grandmother Hypertension High cholesterol Brother Diabetes Social History Household Members: Family Housing: House Are you a primary restorative care technician to a significant other at home: No Do you presently have visiting nurse or other home services: No 75 years or older and lives alone: No Alcohol intake: current Alcohol intake frequency: 0-2 drinks per day Alcohol type: beer Patient Tobacco Use Status: Former Tobacco user Tobacco use type: Cigarette Cigarette Packs Per Day: 1 e-Cigarette/Vaping Use: Never Used Second Hand Smoke Exposure: No Substance Use Type: Marijuana service: No Current occupational status: employed Current occupational exposures/hazards: No Sexual orientation: Straight/Heterosexual Gender identity: Male Cognitive needs: No Hearing needs: No Vision needs: No Questionnaire PHQ-9 Over the last 2 weeks, how often have you been bothered by any of the following problems? [id number] - PHQ-9 Billing: Patient declined-do not bill Source: Developed by Drs. Clifton Nguyễn, Kalli Juarez, Cecilio Hernandes and colleagues, with an educational ganesh from [employer]. Thrive Questionnaire Date Thrive assessed: 08/19/24 I am a: Patient What is your living situation today?: I have a steady place to live Within the past 12 months, did the food you bought not last and you didn't have the money to get more?: Never true Within the past 12 months, did you worry whether your food would run out before you got money to buy more?: Never true Do you have trouble paying for medicines?: No Do you have trouble getting transportation to medical appointments?: No Do you have trouble paying your heating and electricity bill?: No Do you have trouble taking care of your child, family member or friend?: No Do you have trouble with day-to-day activities such as bathing, preparing meals, shopping, managing finances, etc.?: No Are you currently unemployed and looking for a job?: No Are you interested in more education?: No Please select the resources that you would like help with: None Currently or been in a relationship where the following occur: No concerns reported THRIVE Score: 0 AUDIT C Alcohol Use Questionnaire (AUDIT-C) 2. How many drinks containing alcohol do you have on a typical day when you are drinking?: 1 or 2 3. How often do you have six or more drinks on one occasion?: Never Total Score: 0 ALISON-7 AMB Questionnaire ALISON-7 Date ALISON - 7 assessed: 07/22/24 Source: Developed by Drs. Clifton Nguyễn, Kalli Juarez, Cecilio Hernandes and colleagues, with an educational ganesh from [employer]. Physical exam (Primary Care) Vital Signs: Last Vital Signs Pulse 73 08/19/24 09:12 Resp 14 08/19/24 09:12 BP 132/78 08/19/24 09:12 Pulse Ox 97 08/19/24 09:12 Oxygen Delivery Method Room Air 08/19/24 09:12 BMI result Body Mass Index 38.5 Tobacco/Smoking Status: Tobacco use Status Tobacco use date assessed 08/08/24 08/19/24 09:09 Patient Tobacco Use Status Former Tobacco user 08/19/24 09:09 Tobacco use type Cigarette 08/19/24 09:09 e-Cigarette/Vaping Use Never Used 08/19/24 09:09 Thrive Assessment: Date of Thrive Assessment Date Thrive assessed 08/19/24 08/19/24 09:09 Currently or been in a relationship where the following occur: No concerns reported Coding Level of Care Code Est Pt Level 4 (43726) Complex EM visit Add On G2211 Diagnoses Acute deep vein thrombosis (DVT) of calf muscle vein of left lower extremity I82.462 Affected thrombotic vein of extremity: calf muscle vein Chronicity: acute Swelling of lower extremity M79.89 Encounters for administrative purpose Z02.9 Assessment & Plan Assessment & Plan (1) Left leg DVT: Code(s): I82.402 - Acute embolism and thrombosis of unspecified deep veins of left lower extremity Category: Medical Qualifiers: Affected thrombotic vein of extremity: calf muscle vein Chronicity: a cute Qualified Code(s): I82.462 - Acute embolism and thrombosis of left calf muscular vein (2) Swelling of lower extremity: Code(s): M79.89 - Other specified soft tissue disorders Category: Medical (3) Encounters for administrative purpose: Code(s): Z02.9 - Encounter for administrative examinations, unspecified Category: Medical Plan . Patient Instructions: PLease sign up for the patient portal, and use this as the primary source for communication. This will be the quickest way.
[2024-08-19 09:12] VITALS: BP 132/78; PULSE 73; RESP 14; O2SAT 97; BMI 38.5
== END 2024-08-19 09:40 | disposition home or self-care (01) ==
PROVIDERS: PCP Nurse Practitioner Family; Visit Provider Nurse Practitioner Family
DX: I82.462 Acute embolism and thrombosis of left calf muscular vein (principal); M79.89 Other specified soft tissue disorders; Z02.9 Encounter for administrative examinations, unspecified

== ENCOUNTER → 2024-08-19 09:06 | Outpatient (BNVA) | payer OTHER, SELFPAY | PROVIDERS: PCP Nurse Practitioner Family; Visit Provider Nurse Practitioner Family ==

== ENCOUNTER 2024-09-19 13:42 | Outpatient (AMB) | payer OTHER, SELFPAY ==
--- NOTE | 2024-09-19 13:45 | A.OFFPC_ITS ---
Vital Signs 09/19/24 13:51 Height 6 ft 2 in Weight 295 lb BMI 37.9 BP 144/78 H Blood Pressure Location Lt brachial Position Sitting Respiration 14 Pulse 78 Pulse Source Pulse Oximeter Pulse Oximetry (%) 98 Oxygen Delivery Method Room Air Intake Visit Reasons: 6 weeks FU LLE DVT Intake Note: 6 weeks follow up, patient haven't been taking his blood pills since September, because a mix up of pills with . Furniture Builder Required: No Allergies oxycodone [From PERCOCET] Allergy (Intermediate, Verified 09/19/24 14:00) Dizziness Medication List - Last Reconciled 09/19/24 by Farida Jorgensen, BRUSH MACHINE SETTER- acetaminophen (Tylenol Extra Strength) 500 mg PO Q6H PRN bisacodyl (Dulcolax (bisacodyl)) 10 mg (2 x 5 mg) PO BEDTIME colchicine 0.6 mg PO DIRECTED 1 day cyclobenzaprine 10 mg PO TID PRN famotidine (Pepcid) 20 mg PO BEDTIME pantoprazole 40 mg PO DAILY polyethylene glycol 3350 (Miralax) 238 grams PO ONCE Tobacco use date assessed: 08/08/24 Dental Screening Dental Screen Date: 08/08/24 HPI HPI Comments History of Present Illness Details 54-year-old male BPPV, obesity, former t obacco use, current marijuana user, varicose veins, PVD, prediabetes , hyperlipidemia, Incomplete right bundle branch block, gout, provoked DVT LLE 07/05/24 The patient is a 54-year-old male presenting with follow-up for left lower extremity deep vein thrombosis (DVT) and management of gout.. The patient reported no significant swelling or exacerbation of DVT symptoms, with the condition being stable currently. He has been maintained on Eliquis twice per day. He was supposed to complete this therapy October 06 however he misplaced a prescription at the beginning of this month and has not been taking. An ultrasound confirmed complete resolution in August. Additionally, the patient reported a history of gout, with occasional flare-ups being managed with colchicine as a rescue medication during attacks. Prophylactic treatment with allopurinol had been considered but was deferred while on anticoagulant medication. The patient has prior broken screws in the lower extremity, which may contribute to occasional discomfort. Also complaining of itchy dry skin to bilat ears. He is using [id number] topical antibiotic ointment without much relief. - Is considering lifestyle modifications through dietary changes for weight management and has support from family members in dietary planning. - There is an interest in following a hi gh protein diet, which the patient has researched extensively. Exam: awake alert NAD accompanied by Yoshi EAC eczematous RRR LS CTAB LLE + pedal pulses, postop changes noted to great toe, improved edema to foot, no more tenderness w palpation to medial Plan - Resume allopurinol 100 mg once daily f or gout prophylaxis now that anticoagulation is stopped. - Monitor for gout flares and adjust the rapy as needed. Colchicine to be used during acute gout attacks. - Send prescription for desonide ointmen t or cream for erythema of the ears. Use external application as directed. - Discussed the potential adoption of a protein-focused diet. Will review the impact on labs at the next follow-up. - Scheduled follow-up visit in December wit h instructions for fasting lab work prior to the appointment to monitor cholesterol and liver function. Patient was informed and verbally consented to the use of an ambient scribe for clinic note documentation during this visit. Discussion Notes I discussed with the patient the resolution of his deep vein thrombosis and the decision to withhold further anticoagulation therapy at this time. We reviewed the importance of monitoring for any signs of reoccurrence. Regarding gout management, we finalized the plan to resume allopurinol treatment as a preventative measure against future gout attacks and to use colchicine as a rescue medication. Additionally, we adjusted the treatment plan for his ear condition with topical desonide. The patient expressed interest in adopting a cardiac diet. We discussed its potential benefits and the need for balance in protein and nutrient intake. The patient is advised to undergo fasting labs one week prior to the next appointment, for evaluation and appropriate interventions based on those results. Patient Instructions - Restart Allopurinol 100 mg daily for g out prevention. - Use colchicine for acute gout attacks, as previously directed. - Apply desonide ointment on ears as pre scribed. - Consider dietary changes consistent wi th a high-protein diet. Encourage 80% protein intake and 20% fruits/vegetables. - Schedule fasting labs one week before the next appointment in December. - Monitor for any symptoms of DVT recurr ence or gout flare-ups. - Contact the office if there are any ch anges or concerns prior to the scheduled visit in December. This note is constructed using voice recognition software. While every effort has been made to ensure accuracy in vehicle window tinter, still errors may have been included Sometimes, these errors may affect the content or meaning of the given sentence . Total time spent caring for the patient today was 30 minutes. This includes time spent before the visit reviewing the chart, time spent during the visit, and time spent after the visit on documentation [facility] Medical History (Updated 09/19/24 @ 15:36 by Farida Jorgensen BRUSH MACHINE [facility]) Gout Former heavy tobacco smoker Subcutaneous mass Varicose veins of both lower extremities No active medical problems Surgical History No pertinent past surgical history Family History Mother Hypertension Cardiovascular disease Breast cancer Maternal Grandmother Hypertension High cholesterol Brother Diabetes Social History Household Members: Family Housing: House Are you a primary hearing care professional to a significant other at home: No Do you presently have visiting nurse or other home services: No 75 years or older and lives alone: No Alcohol intake: current Alcohol intake frequency: 0-2 drinks per day Alcohol type: beer Patient Tobacco Use Status: Former Tobacco user Tobacco use type: Cigarette Cigarette Packs Per Day: 1 e-Cigarette/Vaping Use: Never Used Second Hand Smoke Exposure: No Substance Use Type: Marijuana service: No Current occupational status: employed Current occupational exposures/hazards: No Sexual orientation: Straight/Heterosexual Gender identity: Male Cognitive needs: No Hearing needs: No Vision needs: No Questionnaire PHQ-9 Over the last 2 weeks, how often have you been bothered by any of the following problems? 55741 - PHQ-9 Billing: Patient declined-do not bill Source: Developed by Drs. Clifton Nguyễn, Kalli Juarez, Cecilio Hernandes and colleagues, with an educational ganesh from [employer]. Thrive Questionnaire Date Thrive assessed: 09/19/24 I am a: Patient What is your living situation today?: I have a steady place to live Within the past 12 months, did the food you bought not last and you didn't have the money to get more?: Never true Within the past 12 months, did you worry whether your food would run out before you got money to buy more?: Never true Do you have trouble paying for medicines?: No Do you have trouble getting transportation to medical appointments?: No Do you have trouble paying your heating and electricity bill?: No Do you have trouble taking care of your child, family member or friend?: No Do you have trouble with day-to-day activities such as bathing, preparing meals, shopping, managing finances, etc.?: No Are you currently unemployed and looking for a job?: No Are you interested in more education?: No THRIVE Score: 0 ALISON-7 AMB Questionnaire ALISON-7 Date ALISON - 7 assessed: 07/22/24 Source: Developed by Drs. Clifton Nguyễn, Kalli Juarez, Cecilio Hernandes and colleagues, with an educational ganesh from [employer]. Physical exam (Primary Care) Vital Signs: Last Vital Signs Pulse 78 09/19/24 13:51 Resp 14 09/19/24 13:51 BP 144/78 H 09/19/24 13:51 Pulse Ox 98 09/19/24 13:51 Oxygen Delivery Method Room Air 09/19/24 13:51 BMI result Body Mass Index 37.9 BMI Assessment/Plan discussion: High BMI High, discussed plan: lifestyle and dietary Tobacco/Smoking Status: Tobacco use Status Tobacco use date assessed 08/08/24 09/19/24 13:48 Patient Tobacco Use Status Former Tobacco user 09/19/24 13:48 Tobacco use type Cigarette 09/19/24 13:48 e-Cigarette/Vaping Use Never Used 09/19/24 13:48 Thrive Assessment: Date of Thrive Assessment Date Thrive assessed 09/19/24 09/19/24 13:48 Coding Level of Care Code Est Pt Level 4 (92321) Complex EM visit Add On G2211 Diagnoses Acute deep vein thrombosis (DVT) of calf muscle vein of left lower extremity I82.462 Affected thrombotic vein of extremity: calf muscle vein Chronicity: acute Eczema of both external ears H60.543 Chronic gout of left foot, unspecified cause M1A.0720 Gout site: foot Gout etiology: unspecified cause Chronicity: chronic Laterality: left BMI 37.0-37.9, adult Z68.37 Class 2 obesity due to excess calories without serious comorbidity with body mass index (BMI) of 37.0 to 37.9 in adult E66.812; E66.09; Z68.37 Obesity type: due to excess calories Serious obesity comorbidity presence: without serious comorbidity Assessment & Plan Assessment & Plan (1) Left leg DVT: Comment: resolved Code(s): I82.402 - Acute embolism and thrombosis of unspecified deep veins of left lower extremity Category: Medical Qualifiers: Affected thrombotic vein of extremity: calf muscle vein Chronicity: ac oralia Qualified Code(s): I82.462 - Acute embolism and thrombosis of left calf muscular vein (2) Eczema of both external ears: Code(s): H60.543 - Acute eczematoid otitis externa, bilateral Category: Medical (3) Gout: Code(s): M10.9 - Gout, unspecified Category: Medical Qualifiers: Gout site: foot Gout etiology: unspecified cause Chronicity: chronic Laterality: left Qualified Code(s): M1A.0720 - Idiopathic chronic gout, left ankle and foot, without tophus (tophi) (4) BMI 37.0-37.9, adult: Code(s): Z68.37 - Body mass index [BMI] 37.0-37.9, adult Category: Medical (5) Class 2 obesity with body mass index (BMI) of 37.0 to 37.9 in adult: Code(s): E66.812 - Obesity, class 2; Z68.37 - Body mass index [BMI] 37.0-37.9, adult Category: Medical Qualifiers: Obesity type: due to excess calories Serious obesity comorbidity presence: without serious comorbidity Qualified Code(s): E66.812 - Obesity, class 2; E66.09 - Other obesity due to excess calories; Z68.37 - Body mass index [BMI] 37.0-37.9, adult Plan . Orders: Orders Comprehensive [place]. Panel Fast 3 Months Z00.00 - Encounter for general adult medical examination without abnormal findings Hemoglobin A1c 3 Months Z00.00 - Encounter for general adult medical examination without abnormal findings Vitamin B12 and Folate 3 Months Z00.00 - Encounter for general adult medical examination without abnormal findings Lipid Panel 3 Months Z00.00 - Encounter for general adult medical examination without abnormal findings Microalbumin, Random (w Creat) 3 Months Z00.00 - Encounter for general adult medical examination without abnormal findings TSH reflex Free T4 3 Months Z00.00 - Encounter for general adult medical examination without abnormal findings Medications: New allopurinol 100 mg PO DAILY 90 tabs 0RF desonide 0.05% 1 appl topical BID-QID PRN 60 grams 3RF skin rash Refilled cyclobenzaprine 10 mg PO TID PRN 14 tabs 0RF muscle spasm Discontinued apixaban (Eliquis) STOP Sep (3 months of treatment) Discontinued Reason: Patient Completed Course 5 mg PO BID 60 tabs 0RF
[2024-09-19 13:51] VITALS: BP 144/78; PULSE 78; RESP 14; O2SAT 98; BMI 37.9
== END 2024-09-19 14:11 | disposition home or self-care (01) ==
PROVIDERS: PCP Nurse Practitioner Family; Visit Provider Nurse Practitioner Family
DX: I82.462 Acute embolism and thrombosis of left calf muscular vein (principal); H60.543 Acute eczematoid otitis externa, bilateral; M1A.0720 Idiopathic chronic gout, left ankle and foot, without tophus (tophi); Z68.37 Body mass index [BMI] 37.0-37.9, adult; E66.812 Obesity, class 2; E66.09 Other obesity due to excess calories

== ENCOUNTER → 2024-09-19 13:42 | Outpatient (BNVA) | payer OTHER, SELFPAY | PROVIDERS: PCP Nurse Practitioner Family; Visit Provider Nurse Practitioner Family ==

== ENCOUNTER 2024-12-01 09:33 | Outpatient (AMB) | payer OTHER, SELFPAY ==
--- NOTE | 2024-12-01 09:50 | AM.OFFWIN_ITS ---
Intake Vital Signs 12/01/24 09:59 Height 6 ft 2 in Weight 287 lb 2 oz BMI 36.9 BP 142/78 H Blood Pressure Location Lt brachial Position Sitting Respiration 12 Pulse 86 Pulse Source Pulse Oximeter Temp 97.9 F Temp Source Oral Pulse Oximetry (%) 93 Oxygen Delivery Method Room Air Intake Visit Reasons: FOOT ISSUES Intake Note: Patient needs a letter regarding foot issues and also concern with foot meds Patient Tobacco Use Status: Former Tobacco user Allergies oxycodone [From PERCOCET] Allergy (Intermediate, Verified 12/01/24 09:51) Dizziness Medication List - Last Reconciled 12/01/24 by Farida Jorgensen, MASS COMMUNICATIONS INSTRUCTOR- acetaminophen (Tylenol Extra Strength) 500 mg PO Q6H PRN allopurinol 100 mg PO DAILY bisacodyl (Dulcolax (bisacodyl)) 10 mg (2 x 5 mg) PO BEDTIME colchicine 0.6 mg PO DIRECTED 1 day cyclobenzaprine 10 mg PO TID PRN desonide 0.05% 1 appl topical BID-QID PRN famotidine (Pepcid) 20 mg PO BEDTIME pantoprazole 40 mg PO DAILY polyethylene glycol 3350 (Miralax) 238 grams PO ONCE Do you need a note to return to daycare/school/sports/work: Yes HPI HPI Comments History of Present Illness Details 54-year-old male BPPV, obesity, former t obacco use, current marijuana user, varicose veins, PVD, prediabetes , hyperlipidemia, Incomplete right bundle branch block, gout, provoked DVT LLE 07/05/24 History of Present Illness - The patient is a 54-year-old male pres enting with a request for documentation to alter work duties due to chronic foot pain and recurrent back spasms. - He has a background of gout, manifesti ng as swelling and pain in the feet, impacting his job performance. - Management strategies for gout have in cluded: allopurinol 100mg which has not prevented recurrence. Taking colcrys daily for the last 1 week with + effect. Has noted pain inbetween his right 3rd and 4th toe. Has been applying lambswool with + relief. Will need surgery for bunion on the L foot. Needs updated referral to Dr Celis. - His occupational demands contribute to worsening foot pain and recurrent back spasms, with recent severe episodes restricting his work capability. - His back issues trace back to a long-s tanding history of back problems, aggravated by current work tasks. - Requested i write a note to restrict h im from using a lift. he will then apply for a new position and request the note to be amended to remove this restriction. states current job toxic environment ; he is suspended and at risk for losing his job w/o this letter. Exam: awake alert NAD accompanied by Speaking in full sentences Did not remove shoe for exam of L foot. R foot neurovasc intact, fungal toe nails, callous great toe, ulcer noted between 3rd and 4th toe from pressure w/o infection, + bunion. Amb steady gait Discussion Notes During the visit, I discussed the patient's chronic foot and back issues and their impact on his work duties. 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 We discussed that adjusting his work duties might alleviate exacerbations related to physical demands. I proposed increasing the patient's medication dose to manage gout more effectively. I advised him to seek an occupational risk assessment with [employer] to address his work duties officially. An increase in allopurinol dosage was recommended, and a referral was placed to Dr. Celis for further evaluation of foot problems. Follow-up care with myself and the use of an online patient portal for communication was encouraged. Further x- rays of his back were ordered to evaluate ongoing back pain issues. Assessment and Plan 1. Gout: The gout management plan involv es increasing allopurinol to 200 mg da feliz to assist in controlling symptoms more effectively. The patient is advised to reduce colchicine use given the potential long-term risks to renal function. 2. Chronic Foot Pain: Assessment through Dr. Celis will be pursued for further management of foot pain. Continued use of lambswool is advised to reduce pressure-related discomfort. 3. Recurrent Back Spasms: The patient's back spasms require occupational health intervention. An x-ray has been ordered. He is advised to pursue occupational evaluation at [employer] [facility] to evaluate changes in duty. Advised i cannot write a letter as he requests today. Patient Instructions - Increase allopurinol dose as prescribe d to 200 mg daily and continue providing current gout medication management. - Follow up with Dr. Celis regarding mira t pain for potential treatment adjustments. - Proceed with the occupational health e valuation at [employer] [facility] to discuss duty modifications. - Attend for an x-ray of your back as in structed at the [place] office and avoid strenuous activities that might trigger back spasms. - Use the patient portal for ongoing com munication. - RTO as scheduled, sooner PRN Consent Patient was informed and verbally consented to the use of an ambient scribe for clinic note documentation during this visit. Total time spent caring for the patient today was 40 minutes. This includes time spent before the visit reviewing the chart, time spent during the visit, and time spent after the visit on documentation, reviewing laboratory results, diagnostic imaging, medications, performing a medically necessary evaluation, counseling on diagnoses, care coordination, ordering appropriate tests, ordering appropriate medications, review of tests performed by other providers, reporting test results with the patient, communication with other healthcare providers. [facility] Medical History (Updated 12/01/24 @ 13:04 by SY Alba-CHELA) Former heavy tobacco smoker Gout No active medical problems Subcutaneous mass Varicose veins of both lower extremities Surgical History No pertinent past surgical history Family History Mother Hypertension Cardiovascular disease Breast cancer Maternal Grandmother Hypertension High cholesterol Brother Diabetes Social History Household Members: Family Housing: House Are you a primary long term care phlebotomist to a significant other at home: No Do you presently have visiting nurse or other home services: No 75 years or older and lives alone: No Alcohol intake: current Alcohol intake frequency: 0-2 drinks per day Alcohol type: beer Patient Tobacco Use Status: Former Tobacco user Tobacco use type: Cigarette Cigarette Packs Per Day: 1 e-Cigarette/Vaping Use: Never Used Second Hand Smoke Exposure: No Substance Use Type: Marijuana service: No Current occupational status: employed Current occupational exposures/hazards: No Sexual orientation: Straight/Heterosexual Gender identity: Male Cognitive needs: No Hearing needs: No Vision needs: No Physical Exam Vital Signs: Last Vital Signs Temp 97.9 F 12/01/24 09:59 Pulse 86 12/01/24 09:59 Resp 12 12/01/24 09:59 BP 142/78 H 12/01/24 09:59 Pulse Ox 93 12/01/24 09:59 Oxygen Delivery Method Room Air 12/01/24 09:59 BMI result Body Mass Index 36.9 Assessment & Plan Assessment & Plan (1) Onychomycosis: Code(s): B35.1 - Tinea unguium (2) Toe ulcer, right: Code(s): L97.519 - Non-pressure chronic ulcer of other part of right foot with unspecified severity Qualifiers: Non-pressure ulcer stage: limited to breakdown of skin Qualified Code(s): L97.511 - Non-pressure chronic ulcer of other part of right foot limited to breakdown of skin (3) Chronic low back pain: Code(s): M54.50 - Low back pain, unspecified; G89.29 - Other chronic pain Qualifiers: Back pain laterality: midline Sciatica presence: with sciatica Sciatica laterality: sciatica of right side Qualified Code(s): M54.41 - Lumbago with sciatica, right side; G89.29 - Other chronic pain (4) Gout: Code(s): M10.9 - Gout, unspecified Qualifiers: Gout site: foot Gout etiology: unspecified cause Chronicity: chronic Laterality: left Qualified Code(s): M1A.0720 - Idiopathic chronic gout, left ankle and foot, without tophus (tophi) (5) Bunion of great toe of right foot: Code(s): M21.611 - Bunion of right foot (6) Callus of foot: Code(s): L84 - Corns and callosities Plan . Orders: Orders XR lumbar spine 6V w bending Today G89.29 - Other chronic pain, M54.50 - Low back pain, unspecified Referrals Podiatry Referral B35.1 - Tinea unguium, L97.519 - Non-pressure chronic ulcer of other part of right foot with unspecified severity Medications: Changed From allopurinol 100 mg PO DAILY 90 tabs 0RF To allopurinol 200 mg PO DAILY 90 tabs 0RF Coding Level of Care Code Est Pt Level 5 (72320) Diagnoses Onychomycosis B35.1 Skin ulcer of toe of right foot, limited to breakdown of skin L97.511 Non-pressure ulcer stage: limited to breakdown of skin Chronic midline low back pain with right-sided sciatica M54.41; G89.29 Back pain laterality: midline Sciatica presence: with sciatica Sciatica laterality: sciatica of right side Chronic gout of left foot, unspecified cause M1A.0720 Gout site: foot Gout etiology: unspecified cause Chronicity: chronic Laterality: left Bunion of great toe of right foot M21.611 Callus of foot L84
[2024-12-01 09:59] VITALS: BP 142/78; PULSE 86; RESP 12; TEMP 36.6; O2SAT 93; BMI 36.9
--- OUTSIDE RECORDS SUMMARY | 2024-12-01 10:31 | XMS_ITS | Encounter Summary ---
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 Report Medical Records [address] [place] [id number] Social History Tobacco Use Types Packs/Day Years Used Date Smoking Tobacco: Every Day Cigarettes 1 Smokeless Tobacco: Never Alcohol Use Standard Drinks/Week Comments Yes 0 (1 standard drink = 0.6 oz pur e alcohol) holidays Sex Assigned at Date Recorded Not on file documented as of this encounter Plan of Treatment Not on file documented as of this encounter Visit Diagnoses Not on filedocumented in this encounter Care Teams Ceramic Tile Mechanic Relationship Specialty Start Date End Date Max Pérez MD [address] [place] [phone] PCP - General Internal Medicine 01/23/14 12/27/14 Kris Garcia MD [address] [place] [id number] PCP - General Internal Medicine 12/28/14 11/13/20 Max Pérez MD [address] [place] [id number] PCP - General Internal Medicine 11/14/20 documented as of this encounter
--- OUTSIDE RECORDS SUMMARY | 2024-12-01 10:31 | XMS_ITS | Patient Health Record ---
Author Organization [facility] Address [address] [place] [address] Care Team Providers Care Countersinker Name Role Phone Farida Lennon Primary Care Provider Unavailab Kristina Hess Unavailable [phone] Allergies Allergen (clinical drug ingredient) Drug/Non Drug Allergy documented on EMR Reaction Allergy Type Onset Date Status acetaminophen / oxycodone Percocet Unknown Drug Allergy Active Results Component Value Reference Range Notes X ray : Foot, left 3V Reviewed date:02/11/2024 06:53:34 PM Interpretation:See Examination above Performing Lab: Notes/Report: See Examination above X ray : Foot, left 3V Reviewed date:02/26/2024 10:53:12 AM Interpretation:See Examination above Performing Lab: Notes/Report: See Examination above X ray : Foot, left 3V Reviewed date:03/10/2024 11:48:59 AM Interpretation:See Examination above Performing Lab: Notes/Report: See Examination above X ray : Foot, right 3V Reviewed date:04/07/2024 03:16:13 PM Interpretation:See Examination above Performing Lab: Notes/Report: See Examination above X ray : Foot, left 3V Reviewed date:05/04/2024 03:12:18 PM Interpretation:See Examination above Performing Lab: Notes/Report: See Examination above X ray : Foot, left 3V Reviewed date:06/02/2024 03:20:45 PM Interpretation:See Examination above Performing Lab: Notes/Report: See Examination above X ray : Foot, left 3V Reviewed date:03/24/2024 12:02:25 PM Interpretation:See Examination above Performing Lab: Notes/Report: See Examination above X ray : Foot, left 3V Reviewed date:03/03/2024 01:08:43 PM Interpretation:See Examination above Performing Lab: Notes/Report: See Examination above Reason For Referral No Information Medications Medication SIG (Take, Route, Frequency, Duration) Notes Start Date End Date Status Gabapentin 300 MG 1 capsule Orally at bedtime for 15 02/11/2024 Not-Taking Ibuprofen 800 MG 1 tablet with food o r milk as needed Orally Three times a day Not-Taking Muscle Relief relaxer Not-Ta kaycee Flexall Active Cephalexin 500 MG 1 capsule Orally every 12 hrs for 10 day(s) Not-Taking Hydrocortisone 2.5 % 1 application Externally to affected areas of itching irritated skin on foot/feet Twice a day for 30 days Active Acetaminophen Extra Strength 500 MG 2 tablet as needed Orally every 6 hrs for 14 days 02/11/2024 Active Work Note . . . May medically return to work at regular hours and duty starting 10/31/20 for 8 days 10/11/2020 Not-Taking predniSONE 20 MG 1 tablet Orally Once a day for 10 days 06/23/2024 Active Walking Boot/Pneumatic daily for until further notice 04/07/2024 Active Ibuprofen 800 MG TAKE 1 TABLET BY MOUTH EVERY EVERY 8 HRS FOR 30 DAYS for 30 Active Work Note . . . 06/02/2024 Active Medrol 4 MG as directed Orally Daily for 6 days 02/05/2024 Not-Taking Colcrys 0.6 MG 1 tablet Orally once a day for 5 days 06/17/2024 Active Ketorolac Tromethamine 10 MG 1 tablet with food or milk as needed Orally every 8 hrs for 5 day(s) 02/24/2024 Not-Taking Work Note . . . 06/17/2024 Active Colchicine 0.6 MG TAKE 1 TABLET BY MOUTH EVERY DAY FOR 30 DAYS for 90 Not-Taking Social History Tobacco Use: Social History Observation Description Date Details (start date - stop date) Former Smoker NA - 08/14/2023 Tobacco Use/Smoking Question Answer Notes Are you a: former smoker When did you stop smoking? 08/14/2023 How long has it been since you last smoked? 1-3 months Alcohol Screen Question Answer Notes Did you have a drink contain ing alcohol in the past year? Yes How often did you have a dri nk containing alcohol in the past year? Monthly or less (1 point) Points 1 Interpretation Negative Tobacco use other than smoking: Question Answer Notes Are you an other tobacco user? No Problems Problem Type SNOMED Code ICD Code Onset Dates Problem Status W/U Status Risk Notes Problem Acquired hallux valgus (76521480) Hallux valgus (acquired), left foot (M20.12) Active confirmed Problem Arthritis (1164674) Arthritis (M19.90) Active confirmed Problem Acquired hammer toe of left foot (310663529372 9103) Hammer toe of left foot (M20.42) Active confirmed Problem Acquired left hallux rigidus (917321214025 105) Hallux rigidus of left foot (M20.22) Active confirmed Problem Gout (07486289) Gout of left foot (M10.9) Active confirmed Rx drug management (4) Problem Gout (20264868) Gout of right foot (M10.9) Active confirmed Rx drug management (4) Problem 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 (151503708) 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) Active confirmed Rx drug management (4) Problem Chronic gouty arthritis (58439525) 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) Active confirmed Rx drug management (4) Problem 79228384 Acute idiopathic gout involving toe of left foot (M10.072) Active confirmed Vital Signs Height 6ft 2in in 06/17/2024 Weight 284 lbs 06/17/2024 BMI 36.46 kg/m2 06/17/2024 Encounters Encounter Location Date Provider Diagnosis Surgery [facility] ([facility] [address] [place] [phone] 02/24/2024 Kristinanéstor Celis [facility] [place] [address] [place] [address] 02/11/2024 Kristina Black Pain in left foot M79.672 ; Pain in left ankle and joints of left foot M25.572 ; Bursitis of left foot M77.52 ; Hallux valgus (acquired), left foot M20.12 ; Hallux rigidus of left foot M20.22 ; Hammer toe of left foot M20.42 ; Arthritis M19.90 ; Former smoker Z87.891 and Acute idiopathic gout involving toe of left foot M10.[address] [address] 02/26/2024 Kristina Black Pain in left foot M79.672 ; Hallux rigidus of left foot M20.22 ; Pain in left ankle and joints of left foot M25.572 ; Bursitis of left foot M77.52 ; Hallux valgus (acquired), left foot M20.12 ; Hammer toe of left foot M20.42 ; Arthritis M19.90 ; Former smoker Z87.891 ; Acute idiopathic gout involving toe of left foot M10.072 and Localized edema R60.[address] [address] 03/03/2024 Kristina Black Pain in left foot M79.672 ; Hallux rigidus of left foot M20.22 ; Pain in left ankle and joints of left foot M25.572 ; Bursitis of left foot M77.52 ; Hallux valgus (acquired), left foot M20.12 ; Hammer toe of left foot M20.42 ; Arthritis M19.90 ; Former smoker Z87.891 ; Acute idiopathic gout involving toe of left foot M10.072 and Localized edema R60.[address] [address] 03/10/2024 Kristina Black Pain in left foot M79.672 ; Hallux rigidus of left foot M20.22 ; Pain in left ankle and joints of left foot M25.572 ; Bursitis of left foot M77.52 ; Hallux valgus (acquired), left foot M20.12 ; Hammer toe of left foot M20.42 ; Arthritis M19.90 ; Former smoker Z87.891 ; Acute idiopathic gout involving toe of left foot M10.072 and Localized edema R60.[address] [address] 03/24/2024 Kristina Black Pain in left foot M79.672 ; Hallux rigidus of left foot M20.22 ; Pain in left ankle and joints of left foot M25.572 ; Bursitis of left foot M77.52 ; Hallux valgus (acquired), left foot M20.12 ; Hammer toe of left foot M20.42 ; Arthritis M19.90 ; Former smoker Z87.891 ; Acute idiopathic gout involving toe of left foot M10.072 and Localized edema R60.[address] [address] 04/07/2024 Kristina Black Pain in left foot M79.672 ; Hallux rigidus of left foot M20.22 ; Pain in left ankle and joints of left foot M25.572 ; Bursitis of left foot M77.52 ; Hallux valgus (acquired), left foot M20.12 ; Hammer toe of left foot M20.42 ; Arthritis M19.90 ; Former smoker Z87.891 ; Acute idiopathic gout involving toe of left foot M10.072 and Localized edema R60.[address] [address] 05/04/2024 Kristina Black Pain in left foot M79.672 ; Hallux rigidus of left foot M20.22 ; Pain in left ankle and joints of left foot M25.572 ; Bursitis of left foot M77.52 ; Hallux valgus (acquired), left foot M20.12 ; Hammer toe of left foot M20.42 ; Arthritis M19.90 ; Former smoker Z87.891 and Localized edema R60.[address] [address] 05/19/2024 Kristina Black Pain in left foot M79.672 ; Hallux rigidus of left foot M20.22 ; Pain in left ankle and joints of left foot M25.572 ; Bursitis of left foot M77.52 ; Hallux valgus (acquired), left foot M20.12 ; Hammer toe of left foot M20.42 ; Arthritis M19.90 ; Former smoker Z87.891 ; Localized edema R60.0 and Sesamoiditis of left foot M25.[address] [place] [address] 06/02/2024 Kristina Black Pain in left foot M79.672 ; Hallux rigidus of left foot M20.22 ; Pain in left ankle and joints of left foot M25.572 ; Bursitis of left foot M77.52 ; Hallux valgus (acquired), left foot M20.12 ; Hammer toe of left foot M20.42 ; Arthritis M19.90 ; Former smoker Z87.891 ; Localized edema R60.0 and Sesamoiditis of left foot M25.872 [facility] [address] [place] [address] 06/17/2024 Kristina Black Pain in joint involving right ankle and foot M25.571 ; Gout of left foot M10.9 ; Pain in joint involving left ankle and foot M25.572 and Nummular eczematous dermatitis L30.[address] [facility] [address] [address] 12/29/2023 Kristina Black [facility] [address] [address] 12/29/2023 Kristina Black [facility] [address] [address] 01/15/2024 Kristina Black [facility] [address] [address] 01/22/2024 Kristina Black [facility] [address] [address] 02/03/2024 Kristina Black Arthralgia of foot, unspecified laterality M25.579 [facility] [address] [address] 02/04/2024 Kristina Black [facility] [address] [place] [address] 02/12/2024 Kristina Black [facility] [address] [address] 02/25/2024 Kristina Black [facility] [address] [facility] [place] [address] 04/11/2024 Kristina Black [facility] [place] [address] [facility] [place] [address] 04/28/2024 Kristina Black [facility] [place] [address] [facility] [place] [address] 06/15/2024 Kristina Black [facility] [place] [address] [facility] [place] [address] 06/20/2024 Kristina Black [facility] [place] [address] [facility] [place] [address] 06/20/2024 Kristina Black [facility] [place] [address] [facility] [place] [address] 06/23/2024 Kristina Black [facility] [place] [address] [facility] [place] [address] 07/05/2024 Kristina Black [facility] [address] [place] [address] 07/05/2024 Kristina Black [facility] [address] [place] [address] 07/19/2024 Kristina Black [facility] [address] [place] [address] 09/29/2024 Kristina Black [facility] [address] [place] [address] 02/24/2024 Kristina Black Assessments Encounter Date Diagnosis (ICD Code) Assessment Notes Treatment Notes Treatment Clinical Notes Section Notes 02/03/2024 Arthralgia of foot, unspecified laterality (ICD-10 - M25.579) 02/11/2024 Pain in left ankle and joints of left foot (ICD-10 - M25.572) 02/11/2024 Pain in left foot (ICD-10 - M79.672) 02/26/2024 Pain in left foot (ICD-10 - M79.672) 02/26/2024 Hallux rigidus of left foot (ICD-10 - M20.22) 03/03/2024 Pain in left foot (ICD-10 - M79.672) 03/10/2024 Pain in left foot (ICD-10 - M79.672) 03/24/2024 Pain in left foot (ICD-10 - M79.672) 04/07/2024 Pain in left foot (ICD-10 - M79.672) 05/04/2024 Pain in left foot (ICD-10 - M79.672) 05/19/2024 Pain in left foot (ICD-10 - M79.672) 06/02/2024 Pain in left foot (ICD-10 - M79.672) 06/17/2024 Gout of left foot (ICD-10 - M10.9) Rx drug management (4) Patient Educated with: GOUT.pdf (GOUT.pdf) Patient Educated with: LOW PURINE DIET.pdf (LOW PURINE DIET.pdf) Patient Educated with: GOUT.pdf (GOUT.pdf) Patient Educated with: LOW PURINE DIET.pdf (LOW PURINE DIET.pdf) 06/17/2024 Pain in joint involving right ankle and foot (ICD-10 - M25.571) 06/17/2024 Pain in joint involving left ankle and foot (ICD-10 - M25.572) 06/02/2024 Hallux rigidus of left foot (ICD-10 - M20.22) pt may retun to work no restrictions 05/19/2024 Hallux rigidus of left foot (ICD-10 - M20.22) 05/19/2024 Pain in left ankle and joints of left foot (ICD-10 - M25.572) 05/04/2024 Hallux rigidus of left foot (ICD-10 - M20.22) 05/04/2024 Pain in left ankle and joints of left foot (ICD-10 - M25.572) 04/07/2024 Hallux rigidus of left foot (ICD-10 - M20.22) pt has a boot already at home that he will start using, 03/24/2024 Hallux rigidus of left foot (ICD-10 - M20.22) 03/10/2024 Hallux rigidus of left foot (ICD-10 - M20.22) 03/03/2024 Hallux rigidus of left foot (ICD-10 - M20.22) 02/26/2024 Pain in left ankle and joints of left foot (ICD-10 - M25.572) 02/11/2024 Bursitis of left foot (ICD-10 - M77.52) 02/11/2024 Hallux valgus (acquired), left foot (ICD-10 - M20.12) 03/03/2024 Pain in left ankle and joints of left foot (ICD-10 - M25.572) 02/26/2024 Bursitis of left foot (ICD-10 - M77.52) 03/10/2024 Pain in left ankle and joints of left foot (ICD-10 - M25.572) 03/24/2024 Pain in left ankle and joints of left foot (ICD-10 - M25.572) 04/07/2024 Pain in left ankle and joints of left foot (ICD-10 - M25.572) 05/04/2024 Bursitis of left foot (ICD-10 - M77.52) 05/19/2024 Bursitis of left foot (ICD-10 - M77.52) 06/02/2024 Pain in left ankle and joints of left foot (ICD-10 - M25.572) 06/17/2024 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) 06/02/2024 Bursitis of left foot (ICD-10 - M77.52) 05/19/2024 Hallux valgus (acquired), left foot (ICD-10 - M20.12) 03/24/2024 Bursitis of left foot (ICD-10 - M77.52) 04/07/2024 Bursitis of left foot (ICD-10 - M77.52) 05/04/2024 Hallux valgus (acquired), left foot (ICD-10 - M20.12) 03/10/2024 Bursitis of left foot (ICD-10 - M77.52) 03/03/2024 Bursitis of left foot (ICD-10 - M77.52) 02/11/2024 Hallux rigidus of left foot (ICD-10 - M20.22) 02/26/2024 Hallux valgus (acquired), left foot (ICD-10 - M20.12) 02/11/2024 Hammer toe of left foot (ICD-10 - M20.42) 02/26/2024 Hammer toe of left foot (ICD-10 - M20.42) 03/03/2024 Hallux valgus (acquired), left foot (ICD-10 - M20.12) 03/10/2024 Hallux valgus (acquired), left foot (ICD-10 - M20.12) 03/24/2024 Hallux valgus (acquired), left foot (ICD-10 - M20.12) 04/07/2024 Hallux valgus (acquired), left foot (ICD-10 - M20.12) 05/04/2024 Hammer toe of left foot (ICD-10 - M20.42) 05/19/2024 Hammer toe of left foot (ICD-10 - M20.42) 06/02/2024 Hallux valgus (acquired), left foot (ICD-10 - M20.12) 05/19/2024 Arthritis (ICD-10 - M19.90) 03/24/2024 Hammer toe of left foot (ICD-10 - M20.42) 05/04/2024 Arthritis (ICD-10 - M19.90) 04/07/2024 Hammer toe of left foot (ICD-10 - M20.42) 06/02/2024 Hammer toe of left foot (ICD-10 - M20.42) 03/10/2024 Hammer toe of left foot (ICD-10 - M20.42) 03/03/2024 Hammer toe of left foot (ICD-10 - M20.42) 02/26/2024 Arthritis (ICD-10 - M19.90) 02/11/2024 Arthritis (ICD-10 - M19.90) 02/11/2024 Former smoker (ICD-10 - Z87.891) 03/03/2024 Arthritis (ICD-10 - M19.90) 02/26/2024 Former smoker (ICD-10 - Z87.891) 03/10/2024 Arthritis (ICD-10 - M19.90) 03/24/2024 Arthritis (ICD-10 - M19.90) 04/07/2024 Arthritis (ICD-10 - M19.90) 05/04/2024 Former smoker (ICD-10 - Z87.891) 06/02/2024 Arthritis (ICD-10 - M19.90) 05/19/2024 Former smoker (ICD-10 - Z87.891) 05/19/2024 Localized edema (ICD-10 - R60.0) 03/24/2024 Former smoker (ICD-10 - Z87.891) 04/07/2024 Former smoker (ICD-10 - Z87.891) 05/04/2024 Localized edema (ICD-10 - R60.0) 06/02/2024 Former smoker (ICD-10 - Z87.891) 03/10/2024 Former smoker (ICD-10 - Z87.891) 03/03/2024 Former smoker (ICD-10 - Z87.891) 02/26/2024 Acute idiopathic gout involving toe of left foot (ICD-10 - M10.072) 02/11/2024 Acute idiopathic gout involving toe of left foot (ICD-10 - M10.072) 02/26/2024 Localized edema (ICD-10 - R60.0) 03/03/2024 Acute idiopathic gout involving toe of left foot (ICD-10 - M10.072) 03/10/2024 Acute idiopathic gout involving toe of left foot (ICD-10 - M10.072) 04/07/2024 Acute idiopathic gout involving toe of left foot (ICD-10 - M10.072) 03/24/2024 Acute idiopathic gout involving toe of left foot (ICD-10 - M10.072) 06/02/2024 Localized edema (ICD-10 - R60.0) 05/19/2024 Sesamoiditis of left foot (ICD-10 - M25.872) 04/07/2024 Localized edema (ICD-10 - R60.0) 06/02/2024 Sesamoiditis of left foot (ICD-10 - M25.872) 03/24/2024 Localized edema (ICD-10 - R60.0) 03/10/2024 Localized edema (ICD-10 - R60.0) 03/03/2024 Localized edema (ICD-10 - R60.0) Plan Of Treatment Pending Test Test Name Order Date *Uric Acid, Serum 06/17/2024 *Uric Acid, Serum 02/03/2024 *Sedimentation Rate-Westergren 4 *Sedimentation Rate-Westergren 4 C-Reactive Protein, Quant 02/03/2024 C-Reactive Protein, Quant 06/17/2024 X ray : Foot, left 3V 06/17/2024 X ray : Foot, left 3V 08/03/2023 81436- Debride <25 sq cm 10/25/2020 [id number] I&D ABSCESS- SIMPLE,SINGLE 021 Insurance Providers Payer Name Payer Address Payer Phone Subscriber Number Group Number Insured Name Patient Relationship to Insured Coverage Start Date Coverage End Date Blue Benefits [address] [address] [place] [address] [id number] Gabe Caldwell Self - patient is the insured Medical (General) History Medical History History ICD Code Arthritis asthma Back,Hip,and Knee pain Chicken pox Gout Surgical History Surgery Date(Month/Year) Fusion 1st MTPJ Left and Hammertoe w/K-W belia Fixation Left 2nd Toe 02/24/2024
--- OUTSIDE RECORDS SUMMARY | 2024-12-01 10:31 | XMS_ITS | Encounter Summary ---
Author Organization [facility] Address [address] [place] [address] Care Team Providers Care Wood Die Maker Name Role Phone Max Pérez MD Primary Care Provider [phone] Kris Garcia MD Primary Care Provider Unavail able Max Pérez MD Primary Care Provider [phone] Encounter Details Date Type Department Care Team Description 01/31/2014 Release of Information Medical Records [address] [place] [id number] Abstract, Provider Social History Tobacco Use Types Packs/Day Years [...] on filedocumented in this encounter Care Teams Wood Die Maker Relationship Specialty Start Date End Date Max Pérez MD [address] [place] [phone] PCP - General Internal Medicine 01/23/14 12/27/14 Kris Garcia MD [address] [place] [id number] PCP - General Internal Medicine 12/28/14 11/13/20 Max Pérez MD [address] [place] [address] PCP - General Internal Medicine 11/14/20 documented as of this encounter
--- OUTSIDE RECORDS SUMMARY | 2024-12-01 10:31 | XMS_ITS | Encounter Summary ---
Author Organization [facility] Address [address] [place] [address] Care Team Providers Care Kitchen Food Server Name Role Phone Kris Garcia MD Primary Care Provider Unavail Max Anderson MD Primary Care Provider [phone] Reason for Visit * Reason Onset Date Comments Orders Call 02/24/2020 Encounter Details Date Type Department Care Team Description 02/24/2020 Telephone Adult Medicine [address] [phone] Kris Garcia MD Orders Call Social History Tobacco Use Types Packs/Day Years Used Date Smoking Tobacco: Every Day Cigarettes 1 Smokeless Tobacco: Never Comments:10 cig daily Alcohol Use Standard Drinks/Week Comments Yes 0 (1 standard drink = 0.6 oz pur e alcohol) holidays Sex Assigned at Date Recorded Not on file documented as of this encounter Miscellaneous Notes * Telephone Encounter - Alyssia Werner PA-C - 02/24/2020 3:47 PM EDT Call to patient ([phone]) and spoke with his (Yen, +TANNER) and she states she understoodprevious message and does not have further questions. Her will have breast ultrasound and mammogram completed as previously ordered; follow-up with general surgery as scheduled. Alyssia Werner PA-C * Telephone Encounter - Poonam Hernandez L.P.N. - 02/24/2020 2:19 PM EDT calling again and wants to speak to to you about orders for mammo and u/s / advised what you said in telephone call of 02/21 but was insistent / please call * Telephone Encounter - Karl Farhat - 02/24/2020 1:33 PM EDT Information Needed Who is calling: Patient Information being requested? Needs an order for a mammo of upper chest cavity. The previous order that was put says for breast. , this is incorrect. Original order was out in by Alyssia werner in January. If information is regarding a referral and notes are needed- transfer call to HIM department If other information is needed, was an LIZZY signed? NO How is the information to be communicated back to the caller? documented in this encounter Plan of Treatment Not on file documented as of this encounter Visit Diagnoses Not on filedocumented in this encounter Care Teams Kitchen Food Server Relationship Specialty Start Date End Date Kris Garcia MD PCP - General Internal Medicine 12/28/14 11/13/20 Max Pérez MD [address] [place] [id number] PCP - General Internal Medicine 11/14/20 documented as of this encounter
--- OUTSIDE RECORDS SUMMARY | 2024-12-01 10:31 | XMS_ITS | Encounter Summary ---
Author Organization [facility] Address [address] [place] [address] Care Team Providers Care Maintenance Mechanic Supervisor Name Role Phone Max Pérez MD Primary Care Provider [phone] Encounter Details Date Type Department Care Team Description 02/12/2024 Register Clerk Report Medical Records [address] [place] [address] [facility] Social History Tobacco Use Types Packs/Day Years [...] on filedocumented in this encounter Care Teams Maintenance Mechanic Supervisor Relationship Specialty Start Date End Date Max Pérez MD [address] [place], [place] [phone] PCP - General Internal Medicine 11/14/20 documented as of this encounter
--- OUTSIDE RECORDS SUMMARY | 2024-12-01 10:31 | XMS_ITS | Encounter Summary ---
Author Organization [facility] Address [address] [place] [address] Care Team Providers Care Plastic Parts Designer Name Role Phone Kris Garcia MD Primary Care Provider Unavail able Max Pérez MD Primary Care Provider [phone] Encounter Details Date Type Department Care Team Description 12/31/2014 Orders Only Adult Medicine [address] [phone] Kris Garcia MD Social History Tobacco Use Types Packs/Day Years [...] on filedocumented in this encounter Care Teams Plastic Parts Designer Relationship Specialty Start Date End Date Kris Garcia MD PCP - General Internal Medicine 12/28/14 11/13/20 Max Pérez MD [address] [place] [phone] PCP - General Internal Medicine 11/14/20 documented as of this encounter
--- OUTSIDE RECORDS SUMMARY | 2024-12-01 10:31 | XMS_ITS | Encounter Summary ---
Author Organization [employer] [facility] Address [address] [facility] [address] [place] [address] Care Team Providers Care Brick Handler Name Role Phone Unavailable Primary Care Provider Unavailabl e Encounter Details Date Type Department Care Team (Latest Contact Info) Description 07/10/2022 Abstract [facility] CONVERSIONS Dental, Provider, DDS Social History Tobacco Use Types Packs/Day Years Used Date Smoking Tobacco: Never Assessed Sex and Gender Information Value Date Recorded Sex Assigned at Male 07/14/2022 10:40 AM EDT Legal Sex Male 10:40 AM EDT Gender Identity Male 07/14/2022 10:40 AM EDT Sexual Orientation Don't know 07/14/2022 10 :40 AM EDT documented as of this encounter Plan of Treatment Not on file documented as of this encounter Visit Diagnoses Not on filedocumented in this encounter
--- OUTSIDE RECORDS SUMMARY | 2024-12-01 10:31 | XMS_ITS | Encounter Summary ---
Author Organization [facility] Address [address] [place] [address] Care Team Providers Care Bookkeeper Receptionist Name Role Phone Kris Garcia MD Primary Care Provider Unavail able Max Pérez MD Primary Care Provider [phone] Encounter Details Date Type Department Care Team Description 05/27/2018 Conventions Reservationist Report Medical Records [address] [place] [id number] Rubens Torre MD Social History Tobacco Use Types Packs/Day [...] on filedocumented in this encounter Care Teams Bookkeeper Receptionist Relationship Specialty Start Date End Date Kris Garcia MD PCP - General Internal Medicine 12/28/14 11/13/20 Max Pérez MD [address] [place] [address] [id number] PCP - General Internal Medicine 11/14/20 documented as of this encounter
--- OUTSIDE RECORDS SUMMARY | 2024-12-01 10:31 | XMS_ITS ---
Author Organization [facility] Address [address] [place] [address] Care Team Providers Care Water Operator Name Role Phone Farida Lennon Primary Care Provider Unavailab le Vimal, Kristina Unavailable [phone] REASON FOR VISIT no show 09/29 Encounters Encounter Location Date Provider Diagnosis [address] [address] 09/29/2024 Kristina Black Plan Of Treatment No Information Progress Notes * Gabe TAPIA ADOB:1970 (54 yo M)Acc No.[id number]:09/29/2024 Patient:?WILLIEGabe :1970???Age:54 Y???Sex:Male Address:[address] [place] [address] [place], [address] * true * Date:? Generated for Gonzalezi bruce/Matthew/eTransmitting on:?12/01/2024 10:31 AM EDT
--- OUTSIDE RECORDS SUMMARY | 2024-12-01 10:31 | XMS_ITS | Encounter Summary ---
Author Organization [facility] Address [address] [place] [address] Care Team Providers Care In Mold Coater Name Role Phone Kris Garcia MD Primary Care Provider Unavail able Max Pérez MD Primary Care Provider [phone] Encounter Details Date Type Department Care Team Description 02/02/2020 Molder Hand Report Medical Records [address] [place] [id number] Miguel Iverson V., DPM Social History Tobacco Use Types Packs/Day Years [...] on filedocumented in this encounter Care Teams In Mold Coater Relationship Specialty Start Date End Date Kris Garcia MD PCP - General Internal Medicine 12/28/14 11/13/20 Max Pérez MD [address] [place] [address] [id number] PCP - General Internal Medicine 11/14/20 documented as of this encounter
--- OUTSIDE RECORDS SUMMARY | 2024-12-01 10:31 | XMS_ITS | Clinical Summary ---
Author Organization [facility] Address [address] [facility] [address] [place] [address] Care Team Providers Care Lookback Coordinator Name Role Phone Unavailable Primary Care Provider Unavailabl e Social History Tobacco Use Types Packs/Day Years Used Date Smoking Tobacco: Never Assessed Sex and Gender Information Value Date Recorded Sex Assigned at Male 07/14/2022 10:40 AM EDT Legal Sex Male 10:40 AM EDT Gender Identity Male 07/14/2022 10:40 AM EDT Sexual Orientation Don't know 07/14/2022 10 :40 AM EDT Plan of Treatment Health Maintenance Due Date Last Done Comments CT Colonography 1971 Colonoscopy 1971 Colorectal Cancer Screening 1971 Depression Screening 1971 FIT DNA/Cologuard 1971 FIT 1971 FOBT 1971 Lipid Panel 1971 Sigmoidoscopy 1971 Alcohol/Substance Use Screening 1983 Tobacco Screening 1983 DTaP/Tdap/Td Vaccines (1 - Tdap) 1990 Hepatitis B Vaccines (1 of 3 - 19+ 3-dose series) 1990 Pneumococcal Vaccine: 50+ Ye ars (1 of 1 - PCV) 2021 Zoster Vaccines (1 of 2) 2021 COVID-19 Vaccine (2023-2 5 season) 2024 Influenza Vaccine (#1) 2024 RSV Patients and Pa tients Aged 60 years or older (1 - 1-dose 75+ series) 2046 HIB Vaccines Aged Out No longer eligi ble based on patient's age to complete this topic HPV Vaccines Aged Out No longer eligi ble based on patient's age to complete this topic Hepatitis A Vaccines Aged Out No long er eligible based on patient's age to complete this topic IPV Vaccines Aged Out No longer eligi ble based on patient's age to complete this topic Meningococcal Vaccine Aged Out No eleanor melani eligible based on patient's age to complete this topic RSV under 20 months Aged Out No longe r eligible based on patient's age to complete this topic Rotavirus Vaccines Aged Out No longer eligible based on patient's age to complete this topic
--- OUTSIDE RECORDS SUMMARY | 2024-12-01 10:32 | XMS_ITS ---
[facility] Organization [facility] Address [address] [place] [address] Care Team Providers Care Shadow Graph Weight Operator Name Role Phone Farida Lennon Primary Care Provider Unavailab Kristina Hess Unavailable [phone] REASON FOR VISIT Call PCP Encounters Encounter Location Date Provider Diagnosis [address] [address] 07/19/2024 Kristina Black Plan Of Treatment No Information Progress Notes * Gabe TAPIA ADOB:1970 (54 yo M)Acc No.[id number]:07/19/2024 Patient:?Gabe TAPIA :1970???Age:54 Y???Sex:Male Address:[address] [place] [address] [place], [address] * true * Date:? Generated for Gonzalezi bruce/Matthew/eTransmitting on:?12/01/2024 10:31 AM EDT
--- OUTSIDE RECORDS SUMMARY | 2024-12-01 10:32 | XMS_ITS ---
Author Organization [facility] Address [address] [place] [address] Care Team Providers Care Chief Engineer Drilling And Recovery Name Role Phone Farida Lennon Primary Care Provider Unavailab Kristina Hess [phone] Encounters Encounter Location Date Provider Diagnosis [address] [address] 09/29/2024 Kristina Celis Plan Of Treatment No Information Progress Notes * Gabe TAPIA ADOB:1970 (54 yo M)Acc No.[id number]:09/29/2024 Progress Note Patient:Gabe LANDERS Provider:?Kristina Celis DPM :1970???Age:54 Y???Sex:Male Avel e:09/29/2024 Address:[address] [place] [id number] Pcp:Farida Lennon Subjective: * Chief Complaints: * ??? * Medical History:? Objective: * Vitals:? Assessment: Plan: * Treatment: * Images: * The named appointment provid er may or may not be the originator of this progress note, and it is not deemed complete until electronically signed by the appointment provider. Sign off status: Pending * Provider:?Kristina Celis DPM Date:?2024 Generated for Obie barrera/Matthew/eTransmitting on:?12/01/2024 10:31 AM EDT
== END 2024-12-01 10:33 | disposition home or self-care (01) ==
LOC: HO.HMCFM 09:33
PROVIDERS: PCP Nurse Practitioner Family; Visit Provider Nurse Practitioner Family
DX: B35.1 Tinea unguium (principal); L97.511 Non-pressure chronic ulcer of other part of right foot limited to breakdown of skin; M54.41 Lumbago with sciatica, right side; G89.29 Other chronic pain; M1A.0720 Idiopathic chronic gout, left ankle and foot, without tophus (tophi); M21.611 Bunion of right foot; L84 Corns and callosities

== ENCOUNTER 2025-03-23 10:09 | Outpatient (AMB) | payer OTHER, SELFPAY ==
--- OUTSIDE RECORDS SUMMARY | 2024-07-05 11:00 | XMS_ITS ---
Author Organization [facility] Address [address] [place] [address] Care Team Providers Care Valet Name Role Phone Farida Lennon Primary Care Provider Unavailab Kristina Hess [phone] Encounters Encounter Location Date Provider Diagnosis [address] [id number] 07/05/2024 Kristina Celis Plan Of Treatment No Information Progress Notes * Gabe TAPIA ADOB:1970 (55 yo M)Acc No.[id number]:07/05/2024 Progress Note Patient: Gabe VALDEZ Provider: Den Celis DPM :1970 A ge:54 Y S ex:Male Date:07/05/2024 Address:[address] [place] [address] [place] [id number] Pcp:Farida Lennon Subjective: * Chief Complaints: * * Medical History: Objective: * Vitals: Assessment: Plan: * Treatment: * Images: * The named appointment provid er may or may not be the originator of this progress note, and it is not deemed complete until electronically signed by the appointment provider. Sign off status: Pending * Provider: Den Celis DPM Date: 1 Generated for Gonzalezi ng/Fachaug/eTransmitting on: 0 03/23/2025 10:48 AM EDT
--- NOTE | 2025-03-23 10:19 | A.OFFPC_ITS ---
Vital Signs 3 03/23/25 10:20 Height 6 ft 2 in Weight 279 lb BMI 35.8 BP 110/86 Blood Pressure Location Lt brachial Position Sitting Respiration 14 Pulse 83 Pulse Source Pulse Oximeter Temp 98.1 F Temp Source Oral Pulse Oximetry (%) 96 Oxygen Delivery Method Room Air Intake Visit Reasons: cpe Intake Note: Physical Allergies oxycodone (From PERCOCET) Allergy (Intermediate, Verified 03/23/25 10:25) Dizziness Medication List - Last Reconciled 03/23/25 by Farida Jorgensen, SIDE PIECE COVERER- acetaminophen (Tylenol Extra Strength) 500 mg PO Q6H PRN allopurinol 200 mg PO DAILY bisacodyl (Dulcolax (bisacodyl)) 10 mg (2 x 5 mg) PO BEDTIME colchicine 0.6 mg PO DIRECTED 1 day cyclobenzaprine 10 mg PO TID PRN desonide 0.05% 1 appl topical BID-QID PRN famotidine (Pepcid) 20 mg PO BEDTIME pantoprazole 40 mg PO DAILY polyethylene glycol 3350 (Miralax) 238 grams PO ONCE Tobacco use date assessed: 03/23/25 Dental Screening Dental Screen Date: 08/08/24 Did you have a dental visit in the last 12 months?: No Did you have a dental problem in the last 6 months where you did not have access to dental care?: No Was dental information given to patient?: Patient has dentist HPI HPI Comments 2 History of Present Illness0 Details 55-year-old male BPPV, obesity, former t obacco use, current marijuana user, varicose veins, PVD, prediabetes , hyperlipidemia, Incomplete right bundle branch block, gout, provoked DVT LLE 07/05/24, lipoma chest wall Status post fusion first MTP J left and hammertoe with K-wire fixation left 2nd toe 02/24/24 Dr Celis Family hx: States that all of his sisters has some sort of cancer, mentions breast cancer and leukemia. He also reports that his mom had some type of cancer but is not really sure about the details. Social: works at [employer], Specialists: Podiatry GI Derm Gen Surg Optho Vasc Health Maintenance: Colon has never had one, referred [facility] Tdap UTD History of Present Illness - The patient is a 55-year-old male pres enting for a complete physical exam and rash on the left chest. - Obesity with BMI of 35.8. - L chest started yesterday, worse since onset Applied TAB Painful to touch. No known injury. - Gout managed with allopurinol 200 mg d aily, colchicine 0.6 mg prn. - Chronic GERD on famotidine 20 mg (bedt laila) and pantoprazole 40 mg (morning). - Chronic constipation using MiraLax. - Has swelling of lower ext and varicose veins, painful @ times; hx of provokes DVT - Lipoma on chest, non-bothersome, benig n. - Bunion discomfort, uses gel separators . Will need surgery to R foot but cannot afford time be out of work @ this time. - Blurred vision bilat; has a stye R eye started a few days ago. . - Referred to dermatology for ongoing sk in issues in past. - Alternative options for colon cancer s creening were discussed due to scheduling conflicts for colonoscopy. Review of Systems - Constitutional: Denies advance warning s for asthma, reports BMI of 35.8. - Skin: Reports rash on the left chest, non-itchy. - Eyes: Reports blurred vision, recurren t styes. - Gastrointestinal: Reports heartburn, o ngoing GERD symptoms. - Musculoskeletal: Reports tender bunion . - Psychological: Expresses aversion to n eedles due to past hospitalization. - Neurological: No symptoms reported. Physical Exam General: Well developed, well nourished, in no acute distress. Appears stated age. Head: Normocephalic, atraumatic. Eyes: Pupils are equal, round and reactive to light and accommodation. Conjunctivae are clear. Vision is blurry, patient needs glasses. Stye present on the right lower lid, Mild conjunctival injection on R Ears: TMs clear AU, EACS WNL. Eczema external ears bilat L>R Nose: Patent, without discharge. Neck: Supple, no adenopathy or thyromegaly. Lymph nodes palpable but normal. Breast: Edu on SBE. Lungs: Clear to auscultation bilaterally. No rales, rhonchi or wheeze noted. Good air flow in all cheung. Heart: Regular rate and rhythm. No murmurs, click, rubs or gallops are noted. Abdomen: Bowel sounds present in all quadrants. The abdomen is soft, nontender, with no masses or organomegaly noted. No hernias are noted. : Deferred. Reviewed GEOFF & recommendations Pulses: Peripheral pulses are equal and palpable bilaterally. Extremities: No clubbing, cyanosis nor edema is noted. Varicose veins BLE Neurologic: Gait and station normal. Cranial Nerves 2-12 intact. Motor strength grossly symmetrical and intact. No sensory loss. Balance normal. Skin: Rash on the left chest, tender and red. No other rashes, ulcers, or lesions noted. Turgor is good. Skin color is good. Hair and nails are without abnormalities. Psych: Normal eye contact, affect and mood appropriate, and normal interactions. Patient is alert and appropriate to context. Left lateral trunk Assessment and Plan 1. Obesity - Focus on weight management. - intentional wt loss 2. Gout - Continue allopurinol; colchicine as ne eded. 3. GERD - Refill pantoprazole, famotidine. 4. Chronic Constipation - Continue MiraLax. 5. cellulitis trunk - Start cefalexin 500 mg BID x 7 days. edu on reasons to RTO or seek additional care 6. Recurrent Styes - current right lower lid J&J Baby shampoo; e-mycin oint. - Ophthalmology referral. 7. Vascular - referral for eval and tx B LE Routine screening labs today, cologaurd. FU with Care team RTO 1 year CPE sooner PRN Patient Instructions - Take cefalexin 500 mg twice daily for 7 days. - Apply ointment to right eye twice poli y for 5 days. - Maintain current medications as discus sed. - Seek medical attention if rash worsens or spreads. Consent Patient was informed and verbally consented to the use of an ambient scribe for clinic note documentation during this visit. An additional 30 minutes was spent addressing the problem(s) noted at todays visit. This includes time spent before the visit reviewing the chart, time spent during the visit, and time spent after the visit on documentation reviewing laboratory results, diagnostic imaging, medications, performing a medically necessary evaluation, counseling on diagnoses, care coordination, ordering appropriate tests, ordering appropriate medications, review of tests performed by other providers, reporting test results with the patient, communication with other healthcare providers. [facility] Medical History (Updated 03/23/25 @ 11:06 by Farida Jorgensen, SIDE PIECE COVERER-) Former heavy tobacco smoker Gout No active medical problems Subcutaneous mass Varicose veins of both lower extremities Surgical History No pertinent past surgical history Family History Mother Hypertension Cardiovascular disease Breast cancer Maternal Grandmother Hypertension High cholesterol Brother Diabetes Social History Household Members: Family Housing: House Are you a primary managed care specialist to a significant other at home: No Do you presently have visiting nurse or other home services: No 75 years or older and lives alone: No Alcohol intake: current Alcohol intake frequency: 0-2 drinks per day Alcohol type: beer Patient Tobacco Use Status: Former Tobacco user Tobacco use type: Cigarette Cigarette Packs Per Day: 1 e-Cigarette/Vaping Use: Never Used Second Hand Smoke Exposure: No Substance Use Type: Marijuana service: No Current occupational status: employed Current occupational exposures/hazards: No Sexual orientation: Straight/Heterosexual Gender identity: Male Cognitive needs: No Hearing needs: No Vision needs: No Questionnaire PHQ-9 Over the last 2 weeks, how often have you been bothered by any of the following problems? 1. Little interest or pleasure in doing things: not at all 2. Feeling down, depressed, or hopeless: not at all 3. Trouble falling or staying asleep, or sleeping too much: not at all 4. Feeling tired or having little energy: not at all 5. Poor appetite or overeating: not at all 6. Feeling bad about yourself - or that you are a failure or have let yourself or your family down: not at all 7. Trouble concentrating on things, such as reading the newspaper or watching television: not at all 8. Moving or speaking so slowly that other people could have noticed. Or the opposite - being so fidgety or restless that you have been moving around a lot more than usual: not at all 9. Thoughts that you would be better off or of hurting yourself in some way: not at all Total score: 0 Depression Screening Interpretation: Negative Depression Screening Done: Yes 69935 - PHQ-9 Billing: Yes Source: Developed by Kalli GrantW. Larry, Cecilio Hernandes and colleagues, with an educational ganesh from [employer]. Thrive Questionnaire Date Thrive assessed: 09/19/24 I am a: Patient What is your living situation today?: I have a steady place to live Within the past 12 months, did the food you bought not last and you didn't have the money to get more?: Never true Within the past 12 months, did you worry whether your food would run out before you got money to buy more?: Never true Do you have trouble paying for medicines?: No Do you have trouble getting transportation to medical appointments?: No Do you have trouble paying your heating and electricity bill?: No Do you have trouble taking care of your child, family member or friend?: No Do you have trouble with day-to-day activities such as bathing, preparing meals, shopping, managing finances, etc.?: No Are you currently unemployed and looking for a job?: No Are you interested in more education?: No Please select the resources that you would like help with: None Currently or been in a relationship where the following occur: No concerns reported THRIVE Score: 0 AUDIT C Alcohol Use Questionnaire (AUDIT-C) 1. How often do you have a drink containing alcohol?: Monthly or less 2. How many drinks containing alcohol do you have on a typical day when you are drinking?: 3 or 4 3. How often do you have six or more drinks on one occasion?: Less than monthly Total Score: 3 Score Reviewed/Action Taken: Yes ALISON-7 AMB Questionnaire ALISON-7 Date ALISON - 7 assessed: 03/23/25 Feeling nervous, anxious, or on edge: 0 = Not at all Not being able to stop or control worryin = Not at all Worrying too much about different things: 0 = Not at all Trouble relaxin = Not at all Being so restless that it is hard to sit still: 0 = Not at all Becoming easily annoyed or irritable: 0 = Not at all Feeling afraid as if something awful might happen: 0 = Not at all Total ALISON-7 score (0-4 normal; 5-9 mild; 10-14 moderate; 15-21 severe): 0 Source: Developed by Drs. Clifton Nguyễn, Kalli BCecilio Rodrigues and colleagues, with an educational ganesh from [employer]. ALISON-7 Assessment Billing ALISON-7 Assessment Tool: ALISON-7 Assessment 54924 Physical exam (Primary Care) Vital Signs: Last Vital Signs Temp 98.1 F 03/23/25 10:20 Pulse 83 03/23/25 10:20 Resp 14 03/23/25 10:20 BP 110/86 03/23/25 10:20 Pulse Ox 96 03/23/25 10:20 Oxygen Delivery Method Room Air 03/23/25 10:20 BMI result Body Mass Index 35.8 BMI Assessment/Plan discussion: High BMI High, discussed plan: lifestyle Tobacco/Smoking Status: Tobacco use Status Tobacco use date assessed 03/23/25 03/23/25 10:23 Patient Tobacco Use Status Former Tobacco user 03/23/25 10:23 Tobacco use type Cigarette 03/23/25 10:23 e-Cigarette/Vaping Use Never Used 03/23/25 10:23 PHQ-9: PHQ-9 Score PHQ-9: Total score 0 03/23/25 10:23 Depression Screening Interpretation: Negative Thrive Assessment: Date of Thrive Assessment Date Thrive assessed 09/19/24 03/23/25 10:23 Currently or been in a relationship where the following occur: No concerns reported Coding Level of Care Code Est Pt Level 4 (41035) Est Pt Prev Care 40-64y(19759) Diagnoses Encounter for general adult medical examination with abnormal findings Z00.01 Marijuana user F12.90 Varicose veins of both lower extremities with pain I83.813 Varicose vein complication: pain Prediabetes R73.03 Eczema of both external ears H60.543 Chronic gout of left foot, unspecified cause M1A.0720 Gout site: foot Gout etiology: unspecified cause Chronicity: chronic Laterality: left Obesity (BMI 30-39.9) E66.9 Screening for prostate cancer Z12.5 Hordeolum internum of right lower eyelid H00.022 Hordeolum type: internum Eyelid: lower Cellulitis of chest wall L03.313 Site of cellulitis of trunk: chest wall Additional Codes PHQ-9 - 61129 - PHQ-9 Billing: Yes ([id number]) ALISON-7 Assessment Billing - ALISON-7 Assessment Tool: ALISON-7 Assessment 99368 ([id number]) Assessment & Plan Assessment & Plan (1) Encounter for general adult medical examination with abnormal findings: Onset Date: ~03/23/25 Code(s): Z00.01 - Encounter for general adult medical examination with abnormal findings Category: Medical (2) Marijuana user: Comment: encouraged to stop Marijuana: Natural = Safe, Right? Marijuana is readily available to use in many states in the [facility]. Understanding the possible risks of use is important to ensure the safety. No matter how you use marijuana (smoke it, eat it, or apply to your skin), it may cause problems with both short term and correction use How marijuana affects your BRAIN: Potential effects from Short Term Use Poor focus, memory and reaction time Difficulty with problem solving Hallucinations, paranoia, anxiety Potential effects from Nurse Transplant Use Memory problems and trouble learning new things Depression, hallucinations, paranoia, anxiety, worsening PTSD symptoms addiction Brain. It is not safe to drive while on marijuana. It makes it hard to sports activities foul judge distance, concentrate, react quickly to signals and sounds, be alert and coordinated. If alcohol is combined, this risk is even higher! In regular users, some of the effects from correction use may last for days or even weeks after stopping marijuana. How inhaling marijuana affects your LUNGS: Inhaling harmful chemicals Gases Small particles Carcinogens (toxins linked to cancer) Breathing problems similar to tobacco smokers Daily cough with mucus Difficulty breathing Lung infections (bronchitis, pneumonia) Lungs How marijuana affects your HEART: Increases risk of heart attack Within the first hour of smoking Increases heart rate 20?100% increase after smoking Increase lasts up to three hours Changes in heart rhythm Feels like your heart skips a beat, or is fluttering, or beating too fast or too slow Heart Is it SAFE to use marijuana with other medications? A combination that can be concerning is the use of opioids and/or benzodiazepines with marijuana. Opioids + Benzodiazepines + Marijuana: Drowsiness: All three can cause drowsiness. Reaction time: All three can reduce reaction time. Do not drive or operate machinery. Overdose: Opioids and Benzodiazepines can cause reduced breathing and in some cases, breathing can stop and a person can . Marijuana containing higher levels of THC may cause difficulty with thinking and memory and this could result in medication errors where extra doses of opioids, benzodiazepines, or other medications may be taken. What is the harm? Example of Opioids Morphine (MS Contin?, Tammie?) Oxycodone (Percocet?, OxyContin?) Hydrocodone (Vicodin?, [place]?) Fentanyl (Duragesic?) Methadone Heroin Example of Benzodiazepines Lorazepam (Ativan?) Diazepam (Valium?) Alprazolam (Xanax?) Clonazepam (Klonopin?) If you have specific questions about the safety of using marijuana with other medications, please contact your provider or pharmacist. Some marijuana users can become addicted! You can have problems with marijuana withdrawal. You may have withdrawal symptoms the day after you stop using. These can get worse 2 to 3 days after using and can take 1 to 2 weeks or longer to go away. Recovery and Treatment Contact your provider or health care team if you are having concerns about your marijuana use or to learn more about available treatment services. The marijuana plant is not an FDA-approved medicine: The U.S. Food and Drug Administration (FDA) has not approved the marijuana plant as a medication due to lack of studies on the risks and benefits. Marijuana contains over 100 chemical substances known as cannabinoids. Some of these, like tetrahydrocannabinol (THC), have mind altering effects and can be intoxicating. Cannabidiol (CBD), another cannabinoid, does not cause the same ?high? users of THC experience. THC has been studied for the treatment of several conditions, including nausea and increasing appetite. CBD is similarly being studied for a number of conditions, including childhood epilepsy and inflammation. What is different between the marijuana product I get from the marijuana shop and a prescription from the pharmacy? The right dose of any medicine is important. A specific dose of THC is approved to treat nausea, but high doses of THC may cause vomiting. The ingredients in a medicine must be measured and stay the same from one dose to the next. The marijuana plant contains unknown ingredients that change from plant to plant. This makes it hard to control the ?dose? of marijuana needed to treat a condition and use it in the same way we use other medicines. Future studies are ongoing to establish the role of the marijuana plant and the cannabinoids found in the plant for treatment of medical conditions. If you have questions about using a marijuana product for a medical condition, please discuss this with your medical provider to determine the most appropriate treatment for you. CT Providers are not able to prescribe marijuana products. Information in this document was compiled by the [facility] Substance Abuse treatment and Education ([facility]). It contains information from factsheets by the National [place] on Drug Abuse (www.drugabuse.gov) and presentation by Jerod Ortez, Jerod Membreno, & Romero Huertas (2010) entitled ?What providers need to know about cannabis use in Veterans with mental health conditions: Research, policy, practice,? and an additional reference: Felisa Ybarra M.D., Panfilo Wisdom, Ph.D., Jefry Vasquez M.D., and Evelin Hoffman, Ph.D: Adverse Effects of Marijuana. N Engl J Med 2014; 370:7688-4211, February 16, 2014 DOI: 10.1056/[id number]. [facility] Academic Detailing Service Code(s): F12.90 - Cannabis use, unspecified, uncomplicated Category: Medical (3) Varicose veins of both lower extremities: Comment: BLE, L>R Code(s): I83.93 - Asymptomatic varicose veins of bilateral lower extremities Category: Medical Qualifiers: Varicose vein complication: pain Qualified Code(s): I83.813 - Varicose veins of bilateral lower extremities with pain (4) Prediabetes: Comment: 01/06/2024 HgA1c 6.0% Code(s): R73.03 - Prediabetes Category: Medical (5) Eczema of both external ears: Code(s): H60.543 - Acute eczematoid otitis externa, bilateral Category: Medical (6) Gout: Code(s): M10.9 - Gout, unspecified Category: Medical Qualifiers: Gout site: foot Gout etiology: unspecified cause Chronicity: chronic Laterality: left Qualified Code(s): M1A.0720 - Idiopathic chronic gout, left ankle and foot, without tophus (tophi) (7) Obesity (BMI 30-39.9): Code(s): E66.9 - Obesity, unspecified Category: Medical (8) Screening for prostate cancer: Code(s): Z12.5 - Encounter for screening for malignant neoplasm of prostate Category: Medical (9) Hordeolum of right eye: Code(s): H00.013 - Hordeolum externum right eye, unspecified eyelid Category: Medical Qualifiers: Hordeolum type: internum Eyelid: lower Qualified Code(s): H00.022 - Hordeolum internum right lower eyelid (10) Cellulitis, trunk: Code(s): L03.319 - Cellulitis of trunk, unspecified Category: Medical Qualifiers: Site of cellulitis of trunk: chest wall Qualified Code(s): L03.313 - Cellulitis of chest wall Plan . Orders: Orders 2 Comprehensive Met. Panel Today Z00.01 - Encounter for general adult medical examination with abnormal findings, Z12.5 - Encounter for screening for malignant neoplasm of prostate Prostate Specific Antigen Scr Today Z00.01 - Encounter for general adult medical examination with abnormal findings, Z12.5 - Encounter for screening for malignant neoplasm of prostate Referrals 2 Cologuard Test Z12.11 - Encounter for screening for malignant neoplasm of colon, Z12.12 - Encounter for screening for malignant neoplasm of rectum Vascular Surgery Referral I83.813 - Varicose veins of bilateral lower extremities with pain Optometry Referral H53.8 - Other visual disturbances Medications: New 2 erythromycin 0.5 inches ophthalmic (eye) BID 3.5 grams 0RF 5 days cephalexin 500 mg PO Q12H 14 caps 0RF 7 days Changed 2 From pantoprazole take one tablet half an hour before breakfast 40 mg PO DAILY 30 tabs 2RF K21.9 - Gastro-esophageal reflux disease without esophagitis To pantoprazole 40 mg PO DAILY 90 tabs 2RF K21.9 - Gastro-esophageal reflux disease without esophagitis Refilled 2 allopurinol 200 mg PO DAILY 90 tabs 2RF famotidine (Pepcid) 20 mg PO BEDTIME 90 tabs 2RF K21.9 - Gastro-esophageal reflux disease without esophagitis Patient Instructions: Health screenings for men You should visit your health care provider regularly, even if you feel healthy. The purpose of these visits is to: Screen for medical issues Assess your risk for future medical problems Encourage a healthy lifestyle Update vaccinations and other preventive care services Help you get to know your provider in case of an illness Information Even if you feel fine, you should still see your provider for regular checkups. These visits can help you avoid problems in the future. For example, the only way to find out if you have high blood pressure is to have it checked regularly. High blood sugar and high cholesterol level also may not have any symptoms in the early stages. Simple blood tests can check for these conditions. There are specific times when you should see your provider or receive specific health screenings. The [place] Preventive Services Task Force publishes a list of recommended screenings. Below are screening guidelines for men ages 40 to 64. BLOOD PRESSURE SCREENING Have your blood pressure checked at least once every year. Watch for blood pressure screenings in your area. Ask your provider if you can stop in to have your blood pressure checked. Ask your provider if you need your blood pressure checked more often if: You have diabetes, heart disease, kidney problems, or are overweight or have certain other health conditions You have a first-degree relative with high blood pressure You are Black Your blood pressure top number is from 120 to 129 mm Hg, or the bottom number is from 70 to 79 mm Hg If the top number is 130 mm Hg or greater or the bottom number is 80 mm Hg or greater, this is considered stage 1 hypertension. Schedule an appointment with your provider to learn how you can lower your blood pressure. Effects of age on blood pressure CHOLESTEROL SCREENING Cholesterol screening should begin at age 35 for men with no known risk factors for coronary heart disease. Repeat cholesterol screening should take place: Every 5 years for men with normal cholesterol levels More often if changes occur in lifestyle (including weight gain and diet) More often if you have diabetes, heart disease, kidney problems, or certain other conditions COLORECTAL CANCER SCREENING If you are under age 45, talk to your provider about getting screened. You may need to be screened if you have a strong family history of colon cancer or polyps. Screening may also be considered if you have risk factors such as a history of inflammatory bowel disease or polyps. If you are age 45 to 75, you should be screened for colorectal cancer. There are several screening tests available: A stool-based fecal occult blood (gFOBT) or fecal immunochemical test (FIT) every year A stool sDNA test every 1 to 3 years Flexible sigmoidoscopy every 5 years or every 10 years with stool testing FIT done every year CT colonography (virtual colonoscopy) every 5 years Colonoscopy every 10 years You may need a colonoscopy more often if you have risk factors for colorectal cancer, such as: Ulcerative colitis A personal or family history of colorectal cancer A history of growths in your colon called adenomatous polyps DENTAL EXAM Go to the dentist once or twice every year for an exam and cleaning. Your dentist will evaluate if you have a need for more frequent visits. DIABETES SCREENING All adults who do not have risk factors for diabetes should be screened starting at age 35 and repeated every 3 years. If you have other risk factors for diabetes, such as a first degree relative with diabetes, overweight or obesity, high blood pressure, prediabetes, or a history of heart disease, you may be tested more often. If you are overweight and have other risk factors, such as high blood pressure and are planning to become , screening is recommended. EYE EXAM Have an eye exam every 2 to 4 years ages 40 to 54 and every 1 to 3 years ages 55 to 64. Your provider may recommend more frequent eye exams if you have vision problems or glaucoma risk. Have an eye exam that includes an examination of your retina (back of your eye) at least every year if you have diabetes. IMMUNIZATIONS Commonly needed vaccines include: Flu shot: get one every year COVID-19 vaccine: ask your provider what is best for you Tetanus-diphtheria and acellular pertussis (Tdap) vaccine: have as one of your tetanus-diphtheria vaccines if you did not receive it as an adolescent Tetanus-diphtheria: have a booster (or Tdap) every 10 years Varicella vaccine: receive 2 doses if you never had chickenpox or the varicella vaccine and were born in 1980 or after Hepatitis B vaccine: receive 2, 3, or 4 doses, depending on your exact circumstances, if you did not receive these as a child or adolescent, until age 59 Shingles (herpes zoster) vaccine: at or after age 50 Ask your provider if you should receive other immunizations, especially if you have certain medical conditions, such as diabetes or are at increased risk for some diseases such as pneumonia. INFECTIOUS DISEASE SCREENING Screening for hepatitis C: all adults ages 18 to 79 should get a one-time test for hepatitis C. Screening for human immunodeficiency virus (HIV): all people ages 15 to 65 should get a one-time test for HIV. Depending on your lifestyle and medical history, you may need to be screened for infections such as syphilis, chlamydia, and other infections. LUNG CANCER SCREENING You should have an annual screening for lung cancer with low-dose computed tomography (LDCT) if: You are age 50 to 80 years AND You have a 20 pack-year smoking history AND You currently smoke or have quit within the past 15 years OSTEOPOROSIS SCREENING If you are age 50 to 64 and have risk factors for osteoporosis, you should discuss screening with your provider. Risk factors can include long-term steroid use, low body weight, smoking, heavy alcohol use, having a fracture after age 50, or a family history of hip fracture or osteoporosis. Osteoporosis PHYSICAL EXAM All adults should visit their provider from time to time, even if they are healthy. The purpose of these visits is to: Screen for diseases Assess risk of future medical problems Encourage a healthy lifestyle Update vaccinations and other preventive care services Maintain a relationship with a provider in case of an illness Your height, weight, and body mass index (BMI) should be checked at every exam. During your exam, your provider may ask you about: Depression and anxiety Diet and exercise Alcohol and tobacco use Safety, such as use of seat belts and smoke detectors Your medicines and risk for interactions PROSTATE CANCER SCREENING If you're 55 through 69 years old, before having the test, talk to your provider about the pros and cons of having a PSA test. Ask about: Whether screening decreases your chance of dying from prostate cancer. Whether there is any harm from prostate cancer screening, such as side effects from testing or overtreatment of cancer when discovered. Whether you have a higher risk of prostate cancer than others. If you are age 55 or younger, screening is not generally recommended. You should talk with your provider about if you have a higher risk for prostate cancer. Risk factors include: Having a family history of prostate cancer (especially a brother or father) Being If you choose to be tested, the PSA blood test is repeated over time (yearly or less often), though the best frequency is not known. Prostate examinations are no longer routinely done on men with no symptoms. Prostate cancer SKIN EXAM Your provider may check your skin for signs of skin cancer, especially if you're at high risk. People at high risk include those who have had skin cancer before, have close relatives with skin cancer, or have a weakened immune system. TESTICULAR EXAM The [place] Preventive Services Task Force (USPSTF) now recommends against performing testicular self-exams. Doing testicular self-exams has been shown to have little to no benefit.
[2025-03-23 10:20] VITALS: BP 110/86; PULSE 83; RESP 14; TEMP 36.7; O2SAT 96; BMI 35.8
--- OUTSIDE RECORDS SUMMARY | 2025-03-23 10:49 | XMS_ITS | Clinical Summary ---
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 Name Role Phone Unavailable Primary Care Provider [...] FOBT 1971 Lipid Panel 1971 Sigmoidoscopy 1971 Disability Screening 1971 Alcohol/Substance Use Screening 1983 Tobacco Screening 1983 DTaP/Tdap/Td Vaccines (1 - Tdap) 1990 Hepatitis B Vaccines (1 of 3 - 19+ 3-dose series) 1990 Pneumococcal Vaccine: 50+ Ye ars (1 of 1 - PCV) 2021 Zoster Vaccines (1 of 2) 2021 COVID-19 Vaccine ( - 2023-2 5 season) 2024 Influenza Vaccine (#1) 2025 RSV Patients and Pa tients Aged 60 [...] patient's age to complete this topic Meningococcal B Vaccine Aged Out No l onger eligible based on patient's age to complete [...]
== END 2025-03-23 10:53 | disposition home or self-care (01) ==
LOC: HO.HMCFM 10:10
PROVIDERS: PCP Nurse Practitioner Family; Visit Provider Nurse Practitioner Family
DX: Z00.01 Encounter for general adult medical examination with abnormal findings (principal); R73.03 Prediabetes; L03.313 Cellulitis of chest wall; H00.022 Hordeolum internum right lower eyelid; Z68.35 Body mass index [BMI] 35.0-35.9, adult; F12.90 Cannabis use, unspecified, uncomplicated; I83.813 Varicose veins of bilateral lower extremities with pain; H60.543 Acute eczematoid otitis externa, bilateral; E66.9 Obesity, unspecified; M1A.0720 Idiopathic chronic gout, left ankle and foot, without tophus (tophi); Z12.5 Encounter for screening for malignant neoplasm of prostate

== ENCOUNTER → 2025-03-23 10:09 | Outpatient (BNVA) | payer OTHER, SELFPAY | PROVIDERS: PCP Nurse Practitioner Family; Visit Provider Nurse Practitioner Family | DX: Z00.01 Encounter for general adult medical examination with abnormal findings (principal); E66.9 Obesity, unspecified; I73.9 Peripheral vascular disease, unspecified; R73.03 Prediabetes; E78.5 Hyperlipidemia, unspecified; K21.9 Gastro-esophageal reflux disease without esophagitis; K59.09 Other constipation; F12.90 Cannabis use, unspecified, uncomplicated; I83.813 Varicose veins of bilateral lower extremities with pain; H60.543 Acute eczematoid otitis externa, bilateral; M1A.0720 Idiopathic chronic gout, left ankle and foot, without tophus (tophi); H00.022 Hordeolum internum right lower eyelid; L03.313 Cellulitis of chest wall; Z86.718 Personal history of other venous thrombosis and embolism; Z68.35 Body mass index [BMI] 35.0-35.9, adult | CPT/HCPCS: 96127 ==

== ENCOUNTER 2025-03-23 11:25 | Outpatient (REF) | payer OTHER, SELFPAY ==
--- OUTSIDE RECORDS SUMMARY | 2025-03-23 12:05 | XMS_ITS | Encounter Summary ---
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
[2025-03-23 16:22] LABS: Alanine Aminotransferase 37 U/L (0-40); Albumin Level 4.4 g/dL (3.5-5.0); Alkaline Phosphatase 85 U/L (39-117); Anion Gap 13 (12-20); Aspartate Amino Transferase 34 U/L (5-37); Blood Urea Nitrogen 16 mg/dL (9-16); Calcium 9.0 mg/dL (8.4-10.2); Carbon Dioxide 23 mmol/L (22-29); Chloride 108 mmol/L (96-108); Cholesterol 195 mg/dL (<200); Estimated Glomerular Filt Rate > 60; HDL Cholesterol 54 mg/dL (>40); Lipase 33 U/L (8-78); Potassium 4.1 mmol/L (3.3-5.1); Sodium 140 mmol/L (135-145); Total Protein 7.4 g/dL (6.5-8.0); Triglycerides 91 mg/dL (<150)
[2025-03-23 16:52] LABS: Microalbum/Creatinine Ratio Ur 3.7 ug/mg cr (<30)
[2025-03-23 16:55] LABS: Hemoglobin A1C 190.9294 umol/L; Total Hemoglobin (HGBA1C) 4510.0494 umol/L
[2025-03-23 17:18] LABS: Folate 11.6 ng/mL (> or = 4.0); Vitamin B12 459 pg/mL (200-900)
[2025-03-23 17:27] LABS: Free T4 (Free Thyroxine) 0.91 ng/dL (0.71-1.85)
[2025-03-28 16:33] LABS: Vitamin D 25-OH, D2 <4 ng/mL; Vitamin D 25-OH, D3 15 ng/mL; Vitamin D 25-OH, Total 15 ng/mL (30-100)
== END 2025-03-23 11:26 | disposition home or self-care (01) ==
LOC: HO.WFDLDS 11:25
PROVIDERS: Referring Provider Nurse Practitioner Family; Visit Provider Nurse Practitioner Family
DX: Z00.01 Encounter for general adult medical examination with abnormal findings (principal); E55.9 Vitamin D deficiency, unspecified; R19.7 Diarrhea, unspecified; R10.9 Unspecified abdominal pain; Z12.5 Encounter for screening for malignant neoplasm of prostate; Z13.1 Encounter for screening for diabetes mellitus
CPT/HCPCS: 36415; 80053; 80061; 82043; 82306; 82570; 82607; 82746; 83036; 83690; 84153; 84439; 84443; 86364